=== PATIENT | female | born 1950 | race Caucasian/White ===

== ENCOUNTER 2020-08-23 06:19 | Outpatient (REF) | payer MEDICARE, SELFPAY ==
[2020-08-23 11:16] LABS: MANUAL DIFF FLAG NO
[2020-08-23 11:30] LABS: Basophils Absolute Auto 0.1 X10*3/uL (0.0-0.2); Basophils Percent Auto 0.8 % (0-2); Eosinophils Absolute Auto 0.2 X10*3/uL (0.0-0.4); Eosinophils Percent Auto 2.5 % (0-4); Hematocrit 42.5 % (37-47); Hemoglobin 13.6 g/dl (12.0-16.0); Imm Gran Abs Auto 0.02 X10*3/uL (0.00-0.03); Imm Gran Pct Auto 0.2 % (0.0-0.4); Lymphocytes Percent Auto 45.1 % (20-40); Mean Corpuscular Hemoglobin 29.7 pg (27.0-33.0); Mean Corpuscular Volume 92.8 fL (80-98); Mean Platelet Volume 9.5 fL (9.4-12.3); Monocytes Absolute Auto 0.7 X10*3/uL (0.1-1.2); Monocytes Percent Auto 8.1 % (2-11); Neutrophils Absolute Auto 3.8 X10*3/uL (2.0-8.3); Neutrophils Percent Auto 43.3 % (45-73); Platelet Count 364 X10*3/uL (160-400); Red Blood Count 4.58 X10*6/uL (4.20-5.50); Red Cell Distribution Width 13.7 % (11.0-16.0); White Blood Count 8.8 X10*3/uL (4.8-10.8)
[2020-08-23 12:05] LABS: Anion Gap 13 (12-20); Blood Urea Nitrogen 15 mg/dL (9-16); Calcium 9.4 mg/dL (8.4-10.2); Carbon Dioxide 29 mmol/L (22-29); Chloride 103 mmol/L (96-108); Cholesterol 250 mg/dL; Estimated Glomerular Filt Rate > 60; Glucose Fasting 108 mg/dL (60-99); HDL Cholesterol 56 mg/dL; LDL Cholesterol Calculated 170 mg/dl; Potassium 3.8 mmol/l (3.3-5.1); Sodium 141 mmol/L (135-145); Triglycerides 120 mg/dL
[2020-08-28 10:57] LABS: Vitamin D 25-OH, D2 <4 ng/mL; Vitamin D 25-OH, D3 35 ng/mL; Vitamin D 25-OH, Total 35 ng/mL (30-100)
== END 2020-08-23 06:20 | disposition home or self-care (01) ==
LOC: HO.HMGCLDS 06:19
PROVIDERS: PCP Internal Medicine; Visit Provider Internal Medicine
DX: E55.9 Vitamin D deficiency, unspecified (principal); I10 Essential (primary) hypertension; J44.9 Chronic obstructive pulmonary disease, unspecified
CPT/HCPCS: 36415; 80048; 80061; 82306; 85025

== ENCOUNTER 2021-04-18 10:50 | Outpatient (REF) | payer MEDICARE, SELFPAY ==
--- NOTE | ~2021-04-18 | MM_ITS ---
EXAMINATION: MM SCREENING DIGITAL BREAST TOMOSYNTHESIS, BILATERAL CLINICAL INFORMATION: Screening. Asymptomatic. The lifetime risk of breast cancer based on the Tyrer-Cuzick Model is 7.6%. COMPARISON: Mammography: Bilateral. TECHNIQUE: Digital breast tomosynthesis is performed in both the craniocaudal and mediolateral oblique views along with computer-aided detection (CAD). Synthesized 2D images are generated from the tomosynthesis. FINDINGS: The breasts are heterogeneously dense, which may obscure small masses (ACR BI-RADS breast composition Category c). On craniocaudal film of the right breast, there are noted to be 2 well-circumscribed densities, one of which lies approximately 2.5 cm from the nipple, measuring 5 mm in diameter. The second one has a bilobed appearance and lies just medial to the nipple measuring 5 mm in largest dimension. Ultrasound is recommended. On craniocaudal view of the left breast about the deep central aspect 7.5 cm from the nipple, there is a region of asymmetric density which was not fully imaged on prior studies and for which spot compression view and medial and lateral views of the left breast are recommended. MM/MM tomosynthesis screening BI IMPRESSION: Bilateral breast findings for further evaluation, as described. ASSESSMENT: BI-RADS 0: Incomplete - Need Additional Imaging Evaluation. RECOMMENDATION: 1. Additional views of the bilateral breasts. 2. Targeted ultrasound if warranted after review of the additional views. 3. Radiology department staff will contact the patient for additional imaging. This patient's information was entered into a reminder system with a target due date for their next mammogram.
== END 2021-04-18 10:51 | disposition home or self-care (01) ==
LOC: HO.MAMMO 10:50
PROVIDERS: PCP Internal Medicine; Visit Provider Internal Medicine
DX: Z12.31 Encounter for screening mammogram for malignant neoplasm of breast (principal)
CPT/HCPCS: 77063; 77067

== ENCOUNTER → 2021-04-30 14:50 | Outpatient (BNVA) | payer MEDICARE, SELFPAY | PROVIDERS: PCP Internal Medicine; Referring Provider Internal Medicine; Visit Provider Physician Assistant | DX: Z12.11 Encounter for screening for malignant neoplasm of colon (principal); K59.09 Other constipation; K64.9 Unspecified hemorrhoids | CPT/HCPCS: Q3014 ==

== ENCOUNTER 2021-06-28 10:00 | Day surgery (SDC) | payer MEDICARE, SELFPAY ==
[2021-06-24 12:57] VITALS: BMI 22.3
[2021-06-24 13:01] VITALS: BP 148/80; PULSE 100; RESP 16; O2SAT 96
--- NOTE | 2021-06-24 13:15 | P.CONAN_ITS ---
Documented by User: Debra Rojas NP 06/27/21 10:09 HPI - Anesthesia Eval Consult details Narrative: 70yo F for Colonoscopy PMFSH Active Problems Active Problems: All Active Problems (Updated 06/24/21 @ 13:13 by Sherry Sorenson) Vitamin D deficiency (Acute) Colon cancer screening (Acute) Breast screening (Acute) Psoriasis (Acute) Chronic constipation (Acute) Hemorrhoids (Acute) COPD (chronic obstructive pulmonary disease) (Acute) Hypertension, essential (Acute) Past Medical History Medical History Anxiety Arthritis Constipation COPD (chronic obstructive pulmonary disease) Heart burn Hypertension, essential Family History Family History Father Smoker Lung cancer Mother Alzheimer's disease History of breast cancer Thyroid disorder Family/Other No problems noted. Sister HTN (hypertension) Sister HTN (hypertension) Brother HTN (hypertension) History of heart attack Brother History of heart attack HTN (hypertension) Maternal Grandmother No problems noted. Maternal Grandfather No problems noted. Paternal Grandfather Unknown family medical history Paternal Grandmother Unknown family medical history Surgical History Surgical History H/O tooth extraction History of colonoscopy Social History Social History Are you a primary care process manager to a significant other at home: No Do you presently have visiting nurse or other home services: No Patient Tobacco Use Status: Former Tobacco user Quit Date: 11/2019 Are you DNR?: No Advance Directives: No Advance Directives Information Provided: No Advance Directives on File: No Narrative Narrative: No recent illness. Reports COPD at baseline No CP Activity limited d/t psoriasis on right foot. Now on otesla rx with improvement Meds Allergies Allergy/AdvReac Type Severity Reaction Status Date / Time codeine Allergy Intermediate redness/itc Verified 06/21/21 14:41 layo latex Allergy Intermediate Rash Verified 06/24/21 13:08 Home Medications Medication Instructions Recorded Confirmed Last Taken Type apremilast 30 mg tablet (Otezla) 30 mg PO BID 06/21/21 06/21/21 Unknown History Exam Exam Date and Time: June 24, 2021 1315 Height,Weight and Vital Signs: Height 5 ft 4 in Weight 58.967 kg Last Vital Signs Pulse 100 06/24/21 13:01 Resp 16 06/24/21 13:01 BP 148/80 H 06/24/21 13:01 Pulse Ox 96 06/24/21 13:01 Airway Mallampati Class: I TM Dist: >3cm Neck ROM: Full Partial: Lower Heart: RRR Lungs: CTAB Assessment and Plan Assessment Anesthesia Assessment: Anesthesia Plan Discussed and PAT Visit Documented by User: Rekha Hermosillo MD 06/28/21 10:53 [facility] Past Medical History Medical History Anxiety Arthritis Constipation COPD (chronic obstructive pulmonary disease) Heart burn Hypertension, essential Functional capacity: independent ambulation Patient : No Family History Family History Father Smoker Lung cancer Mother Alzheimer's disease History of breast cancer Thyroid disorder Family/Other No problems noted. Sister HTN (hypertension) Sister HTN (hypertension) Brother HTN (hypertension) History of heart attack Brother History of heart attack HTN (hypertension) Maternal Grandmother No problems noted. Maternal Grandfather No problems noted. Paternal Grandfather Unknown family medical history Paternal Grandmother Unknown family medical history Family history of problems with anesthesia: No Surgical History Surgical History H/O tooth extraction History of colonoscopy History of Problems with Anesthesia: No Social History Social History Are you a primary care process manager to a significant other at home: No Do you presently have visiting nurse or other home services: No Patient Tobacco Use Status: Former Tobacco user Quit Date: 11/2019 Are you DNR?: No Advance Directives: No Advance Directives Information Provided: No Advance Directives on File: No Meds Allergies Allergy/AdvReac Type Severity Reaction Status Date / Time codeine Allergy Intermediate redness/itc Verified 06/21/21 14:41 layo latex Allergy Intermediate Rash Verified 06/24/21 13:08 Home Medications Medication Instructions Recorded Confirmed Last Taken Type apremilast 30 mg tablet (Otezla) 30 mg PO BID 06/21/21 06/21/21 Unknown History Exam Airway Mallampati Class: II Assessment and Plan Final Anesthetic Review Family History of Problems with Anesthesia: No History of Problems with Anesthesia: No
[2021-06-28 10:54] VITALS: BP 178/86; PULSE 97; RESP 20; TEMP 36.7; O2SAT 94
--- NOTE | 2021-06-28 11:11 | HO.ANESPROP2 ---
[facility] Active Problems Active Problems: All Active Problems (Updated 06/24/21 @ 13:13 by Sherry Sorenson RN) Vitamin D deficiency (Acute) Colon cancer screening (Acute) Breast screening (Acute) Psoriasis (Acute) Chronic constipation (Acute) Hemorrhoids (Acute) COPD (chronic obstructive pulmonary disease) (Acute) Hypertension, essential (Acute) Past Medical History Medical History Anxiety Arthritis Constipation COPD (chronic obstructive pulmonary disease) Heart burn Hypertension, essential Family History Family History Father Smoker Lung cancer Mother Alzheimer's disease History of breast cancer Thyroid disorder Family/Other No problems noted. Sister HTN (hypertension) Sister HTN (hypertension) Brother HTN (hypertension) History of heart attack Brother History of heart attack HTN (hypertension) Maternal Grandmother No problems noted. Maternal Grandfather No problems noted. Paternal Grandfather Unknown family medical history Paternal Grandmother Unknown family medical history Family history of problems with anesthesia: No Surgical History Surgical History H/O tooth extraction History of colonoscopy History of Problems with Anesthesia: No Social History Social History Are you a primary patient care specialist to a significant other at home: No Do you presently have visiting nurse or other home services: No Patient Tobacco Use Status: Former Tobacco user Quit Date: 11/2019 Are you DNR?: No Advance Directives: No Advance Directives Information Provided: No Advance Directives on File: No Patient : No Meds Allergies Allergy/AdvReac Type Severity Reaction Status Date / Time codeine Allergy Intermediate redness/itc Verified 06/21/21 14:41 layo latex Allergy Intermediate Rash Verified 06/24/21 13:08 Active Medications: Current Medications Generic Name Dose Route Start Last Admin Trade Name Freq PRN Reason Stop Dose Admin Albuterol Sulfate 2.5 mg 06/28/21 10:41 Albuterol Sulfate (0.083%) 2.5 Mg/3 Ml Vial.Neb INHALE ONCE PRN Shortness of Breath/Wheezing Lactated Ringer's 1,000 mls @ 100 mls/hr 06/28/21 10:45 Lr IVCONT .Q10H [facility] Home Medications Medication Instructions Recorded Confirmed Last Taken Type apremilast 30 mg tablet (Otezla) 30 mg PO BID 06/21/21 06/21/21 Unknown History Exam Exam Date and Time: June 28, 2021 1111 Height,Weight and Vital Signs: Height 5 ft 4 in Weight 58.967 kg Last Vital Signs Temp 98.1 F 06/28/21 10:54 Pulse 97 06/28/21 10:54 Resp 20 06/28/21 10:54 BP 178/86 H 06/28/21 10:54 Pulse Ox 94 06/28/21 10:54 Airway Mallampati Class: II TM Dist: >3cm Neck ROM: Full Partial: Lower Loose/Missing/Broken Teeth: Yes and Lower Heart: RRR Lungs: CTA Assessment and Plan Assessment Anesthesia Assessment: Anesthesia Plan Discussed and Chart Reviewed Final Anesthetic Review Family History of Problems with Anesthesia: No History of Problems with Anesthesia: No NPO: Yes ASA Class: II and III Final Preanesthetic Review: Meds/Allgs Chart Reviewed, Consent Obtained/Reviewed and Anes Risks/Benef Reviewed Patient Risk: Low Procedure Risk: Low Anesthetic Plan Anesthetic Plan: MAC: Disposition: Standard PACU
[2021-06-28] MEDS: Lactated Ringers 1,000 ML 100 ML IVCONT (11:13)
--- NOTE | 2021-06-28 11:25 | MHC.SHP ---
Pre-Procedural Eval Section A Date of Service: 06/28/21 The patient is an INPATIENT: No The History & Physical has been completed within 30 days and I have reviewed it.: No Section B Chief Complaint: screening Details of Present Illness: Colon cancer screening Relevant Family History (Specify if Yes): No Relevant Social History: Tobacco Use (Former smoker) Present Medications: see Short Stay Collaborative assessment Medical History: Significant History (COPD (chronic obstructive pulmonary disease) Hypertension, essential) History of Previous Operations: Relevant previous surgery/procedure and date(s) (History of colonoscopy) Allergies: Allergies Allergy/AdvReac Type Severity Reaction Status Date / Time codeine Allergy Intermediate redness/itc Verified 06/21/21 14:41 layo latex Allergy Intermediate Rash Verified 06/24/21 13:08 Review of Systems Sugical H&P ROS: Negative: Constitution, Cardiovascular and Respiratory and Yes, Specify: Gastrointestinal (Chronic constipation, rectal bleeding) Exam Surgical H&P Exam: Normal: Heart, Normal: Lungs, Normal: Extremities and Normal: Abdomen Plan Diagnosis/Plan: Unchanged I have reviewed the history and physical and performed a pertinent physical examination on my patient. No changes have occurred unless specified.
--- NOTE | 2021-06-28 11:28 | PM.OP ---
Brief Operative Note Date of Service: 06/28/21 Pre-op diagnosis: Colon cancer screening, history of colon polyps Post-op diagnosis: other (Colon polyps, diverticulosis, hemorrhoids) Procedure: COLONOSCOPY TILL CECUM WITH BIOPSIES AND SNARE POLYPECTOMY Consent: Indications for the procedure and potential complications of bleeding, perforation, reaction to medications and missed diagnosis were discussed with the patient and informed consent was obtained. Instrument: Olympus PCF H 190 L variable stiffness pediatric colonoscope Monitoring: Vital signs and clinical assessment, intermittent blood pressure monitoring, continuous EKG monitoring, Pulse oximetry and Carbon Dioxide monitoring were done throughout the procedure. Colon withdrawl time was 25 minutes. Procedure: The patient was placed in the left lateral decubitis position and pre-procedure medications were administered. After a digital rectal examination of the ano-rectum, the video colonoscope was inserted into the rectum and advanced through the colon to the cecum. The colonoscope was slowly withdrawn in a retrograde panoramic fashion and the colon mucosa was carefully examined including a retroflexed view of the rectum. Findings and interventions are described below. Procedure Difficulty: Colon was long and tortuous and there was some loop formation. LLQ pressure was applied to intubate the transverse colon/cecum Findings: Terminal Ileum: Not evaluated Cecum: Normal Ascending Colon: Two 3-5 mm sessile polyps removed with the cold biopsy Transverse Colon: Normal Descending Colon: Moderate diverticulosis Sigmoid Colon: A 2 cms sessile polyp at 55 cms removed with a hot snare. A 2.5 cms pedunculated polyp at 22 cms - removed with a hot snare. Severe diverticulosis with luminal narrowing Rectum: Patchy erythema with aphthoid ulcers in the distal rectum from 0 to 2 cms - random biopsies were obtained to rule out proctitis Ano-rectum: Moderate internal hemorrhoids Colon preparation: Good after some irrigation Impression and Post Procedure Diagnosis: Colonoscopy Findings: Three large and two medium sized polyps removed Moderate to severe diverticulosis seen in the left colon Moderate hemorrhoids on retroflexed exam. Plan: Await pathology results Patient has an appointment on 07/09/21 in the GI Clinic with MAULIK Gonzalez. Repeat Colonoscopy interval based on path results - in 1-2 years if polyps are adenomatous and 10 years if polyps are hyperplastic. Above findings were reviewed with the patient and colon polyps and diverticulosis handouts were given in the discharge area Surgeon: Deanna Garcia MD Anesthesia: MAC (Dr Bach) Was an Railway Traction Line Worker used for this Procedure?: Yes Railway Traction Line Worker: Karly Dunbar Estimated blood loss (mL): 0 Pathology: other (A- ASCENDING COLON POLYPS B- SIGMOID COLON POLYP C- SIGMOID POLYP AT 22CMS D- RECTAL POLYP E- RECTAL BIOPSIES- R/O PROCTITIS) Condition: stable Disposition: PACU
[2021-06-28 12:10] VITALS: BP 110/62; PULSE 74; RESP 18; TEMP 36.3; O2SAT 100
[2021-06-28 12:25] VITALS: BP 129/69; PULSE 75; RESP 20; O2SAT 95
--- NOTE | 2021-06-28 17:35 | P.OP_ITS ---
Operative Note Operative Note Date of Service: 06/28/21 Narrative: Pre-op diagnosis:?Colon cancer screening, history of colon polyps Post-op diagnosis:?other (Colon polyps, diverticulosis, hemorrhoids) Procedure:? COLONOSCOPY TILL CECUM WITH BIOPSIES AND SNARE POLYPECTOMY Consent: Indications for the procedure and potential complications of bleeding, perforation, reaction to medications and missed diagnosis were discussed with the patient and informed consent was obtained. Instrument: Olympus PCF H 190 L variable stiffness pediatric colonoscope Monitoring: Vital signs and clinical assessment, intermittent blood pressure monitoring, continuous EKG monitoring, Pulse oximetry and Carbon Dioxide monitoring were done throughout the procedure. Colon withdrawl time was 25 minutes. Procedure: The patient was placed in the left lateral decubitis position and pre-procedure medications were administered. After a digital rectal examination of the ano-rectum, the video colonoscope was inserted into the rectum and advanced through the colon to the cecum. The colonoscope was slowly withdrawn in a retrograde panoramic fashion and the colon mucosa was carefully examined including a retroflexed view of the rectum. Findings and interventions are described below. Procedure Difficulty:? Colon was long and tortuous and there was some loop formation. LLQ pressure was applied to intubate the cecum Findings: Terminal Ileum: Not evaluated Cecum:? Normal Ascending Colon:? Two 3-5 mm sessile polyps removed with the cold biopsy Transverse Colon:? Normal Descending Colon:? Moderate diverticulosis Sigmoid Colon:? A 2 cms sessile polyp at 55 cms removed with a hot snare. A 2.5 cms pedunculated polyp at 22 cms - removed with a hot snare. Severe diverticulosis with luminal narrowing Rectum:? Patchy erythema with aphthoid ulcers in the distal rectum from 0 to 2 cms - random biopsies were obtained to rule out proctitis Ano-rectum:? Moderate internal hemorrhoids Colon preparation: Good after some irrigation Impression and Post Procedure Diagnosis: Colonoscopy Findings: Three large and two medium sized polyps removed Moderate to severe diverticulosis seen in the left colon Moderate hemorrhoids on retroflexed exam. Plan: Await pathology results Patient has an appointment on 07/09/21 in the GI Clinic with MAULIK Gonzalez. Repeat Colonoscopy interval based on path results - in 1-2 years if polyps are adenomatous and 10 years if polyps are hyperplastic - needs adult colonoscopy for future colonoscopies. Above findings were reviewed with the patient and colon polyps and diverticulosis handouts were given in the discharge area Surgeon:?Deanna Garcia MD Anesthesia:?MAC (Dr Espino) Was an Chief Psychology used for this Procedure?:?Yes Chief Psychology:?Karly Dunbar Estimated blood loss (mL):?0 Pathology:?other (A- ASCENDING COLON POLYPS? B- SIGMOID COLON POLYP? C- SIGMOID POLYP AT 22CMS? D- RECTAL POLYP? E- RECTAL BIOPSIES- R/O PROCTITIS) Condition:?stable Disposition:?PACU
== END 2021-06-28 13:25 | disposition home or self-care (01) ==
PROVIDERS: PCP Internal Medicine; Visit Provider Internal Medicine Gastroenterology
PROC: 0DJD8ZZ Inspection of Lower Intestinal Tract, Via Natural or Artificial Opening Endoscopic (ICD-10-PCS; CPT 45378; principal; 2021-06-28 11:20)
DX: Z12.11 Encounter for screening for malignant neoplasm of colon (principal); Z86.010 Personal history of colon polyps; D12.5 Benign neoplasm of sigmoid colon; D12.8 Benign neoplasm of rectum; K63.5 Polyp of colon; K57.30 Diverticulosis of large intestine without perforation or abscess without bleeding; K64.8 Other hemorrhoids; I10 Essential (primary) hypertension; J44.9 Chronic obstructive pulmonary disease, unspecified; Z79.899 Other long term (current) drug therapy; Z88.8 Allergy status to other drugs, medicaments and biological substances; Z87.891 Personal history of nicotine dependence; Z91.040 Latex allergy status
CPT/HCPCS: 45385; 45380; 88305

== ENCOUNTER 2022-01-29 12:30 | Outpatient (REF) | payer MEDICARE, SELFPAY ==
[2022-01-29 13:43] LABS: MANUAL DIFF FLAG NO
[2022-01-29 13:49] LABS: Basophils Absolute Auto 0.1 X10*3/uL (0.0-0.2); Basophils Percent Auto 0.7 % (0-2); Eosinophils Absolute Auto 0.1 X10*3/uL (0.0-0.4); Eosinophils Percent Auto 1.8 % (0-4); Hematocrit 41.4 % (37.0-47.0); Hemoglobin 13.6 g/dl (12.0-16.0); Imm Gran Abs Auto 0.02 X10*3/uL (0.00-0.03); Imm Gran Pct Auto 0.3 % (0.0-0.4); Lymphocytes Absolute Auto 2.6 X10*3/uL (1.2-4.9); Lymphocytes Percent Auto 35.9 % (20-40); Mean Corpuscular HGB Conc 32.9 g/dl (31.0-35.0); Mean Corpuscular Volume 91.4 fL (80.0-98.0); Mean Platelet Volume 9.4 fL (9.4-12.3); Monocytes Absolute Auto 0.5 X10*3/uL (0.1-1.2); Monocytes Percent Auto 6.6 % (2-11); Neutrophils Absolute Auto 3.9 x10*3/uL (2.0-8.3); Neutrophils Percent Auto 54.7 % (45-73); Platelet Count 339 X10*3/uL (160-400); Red Blood Count 4.53 X10*6/uL (4.20-5.50); Red Cell Distribution Width 13.4 % (11.0-16.0); White Blood Count 7.2 X10*3/uL (4.8-10.8)
[2022-01-29 14:10] LABS: Alanine Aminotransferase 13 U/L (0-31); Albumin Level 4.5 g/dL (3.5-5.0); Alkaline Phosphatase 104 U/L (39-117); Anion Gap 14 (12-20); Aspartate Amino Transferase 17 U/L (5-31); Bilirubin Total 0.5 mg/dL (0.0-1.0); Blood Urea Nitrogen 13 mg/dL (9-16); Calcium 10.3 mg/dL (8.4-10.2); Carbon Dioxide 28 mmol/L (22-29); Chloride 104 mmol/L (96-108); Estimated Glomerular Filt Rate > 60; Glucose Random 99 mg/dL (60-115); Potassium 4.2 mmol/L (3.3-5.1); Sodium 142 mmol/L (135-145); Total Protein 8.1 g/dL (6.5-8.0)
[2022-01-29 14:35] LABS: TSH reflex Free T4 1.59 uIU/mL (0.32-4.0)
== END 2022-01-29 12:31 | disposition home or self-care (01) ==
LOC: HO.HMGCLDS 12:30
PROVIDERS: PCP Internal Medicine; Visit Provider Internal Medicine
DX: I10 Essential (primary) hypertension (principal)
CPT/HCPCS: 36415; 80053; 84443; 85025

== ENCOUNTER 2022-04-17 14:43 | Outpatient (REF) | payer MEDICARE, SELFPAY ==
--- NOTE | 2022-04-17 17:01 | PFT_ITS ---
INDICATION: Shortness of breath. SPIROMETRY: The FEV1 to FVC 31% with an FEV1 of 0.78 L, which is 35% predicted. An FVC of 2.51 L, which is 86% predicted. There was a significant response to bronchodilators noted. Maximum voluntary ventilation 30% predicted. LUNG VOLUMES: Total lung capacity 120% predicted with a residual volume 175% predicted. DIFFUSION CAPACITY: DLCO 34% predicted. COMPARISONS: PFTs from 2013. INTERPRETATION: There is an obstructive ventilatory defect consistent with very severe COPD. The patient did have a significant response to bronchodilators noted. There is a severe decrease in the maximum voluntary ventilation secondary to deconditioning and also worsening dynamic inspiratory capacity. Lung volumes with a trend hyperinflation and significant air trapping, and the patient does have a severe diffusion impairment. When compared to 2013, there is a trend increase in the FVC, a significant decrease in the FEV1, a trend increase in the total lung capacity, and a significant decrease in diffusion capacity. Clinical correlation warranted. The patient should have a 6-minute walk test. MD MICHAEL Chavis/LUPE / [phone]
== END 2022-04-17 14:44 | disposition home or self-care (01) ==
LOC: HO.RESP 14:43
PROVIDERS: PCP Internal Medicine; Visit Provider Internal Medicine
DX: J44.9 Chronic obstructive pulmonary disease, unspecified (principal)
CPT/HCPCS: 94060; 94727; 94729

== ENCOUNTER 2022-07-03 14:19 | Outpatient (REF) | payer MEDICARE, SELFPAY ==
--- NOTE | ~2022-07-03 | XR_ITS ---
EXAMINATION: XR CHEST CLINICAL INFORMATION: Post Covid infection COMPARISON: Previous chest x-ray from 2016 TECHNIQUE: 2 views of the chest were obtained. FINDINGS: The cardiac and mediastinal contours are stable. The lungs are well inflated. The lungs are clear. There is no pleural effusion or pneumothorax. Bony structures are unremarkable. XR/XR chest 2V IMPRESSION: Well-inflated lungs. No evidence for acute disease in the chest.
== END 2022-07-03 14:20 | disposition home or self-care (01) ==
LOC: HO.XRAY 14:19
PROVIDERS: PCP Internal Medicine; Visit Provider Internal Medicine
DX: J44.9 Chronic obstructive pulmonary disease, unspecified (principal); R09.02 Hypoxemia; Z79.899 Other long term (current) drug therapy; Z87.891 Personal history of nicotine dependence
CPT/HCPCS: 71046; 94618; 99202

== ENCOUNTER → 2022-09-04 14:20 | Outpatient (BNVA) | payer MEDICARE, SELFPAY | PROVIDERS: PCP Internal Medicine; Visit Provider Internal Medicine | DX: J44.9 Chronic obstructive pulmonary disease, unspecified (principal); R09.02 Hypoxemia; Z87.891 Personal history of nicotine dependence | CPT/HCPCS: 99212 ==

== ENCOUNTER 2023-02-07 12:16 | Outpatient (REF) | payer MEDICARE, SELFPAY ==
[2023-02-07 13:44] LABS: Alanine Aminotransferase 14 U/L (0-31); Albumin Level 4.1 g/dL (3.5-5.0); Alkaline Phosphatase 84 U/L (39-117); Anion Gap 11 (12-20); Aspartate Amino Transferase 17 U/L (5-31); Bilirubin Total 0.6 mg/dL (0.0-1.0); Blood Urea Nitrogen 18 mg/dL (9-16); Calcium 9.5 mg/dL (8.4-10.2); Carbon Dioxide 29 mmol/L (22-29); Chloride 105 mmol/L (96-108); Estimated Glomerular Filt Rate 56; Glucose Random 99 mg/dL (60-115); Potassium 4.4 mmol/L (3.3-5.1); Sodium 141 mmol/L (135-145); Total Protein 7.1 g/dL (6.5-8.0)
[2023-02-08 15:44] LABS: LDL Cholesterol Direct 185 mg/dL (<100)
== END 2023-02-07 12:17 | disposition home or self-care (01) ==
LOC: HO.HMGCLDS 12:16
PROVIDERS: PCP Internal Medicine; Visit Provider Internal Medicine
DX: I10 Essential (primary) hypertension (principal); K59.09 Other constipation
CPT/HCPCS: 36415; 80053; 83721

== ENCOUNTER → 2023-02-09 14:50 | Outpatient (BNVA) | payer MEDICARE, SELFPAY | PROVIDERS: PCP Internal Medicine; Visit Provider Internal Medicine | DX: J44.9 Chronic obstructive pulmonary disease, unspecified (principal); U09.9 Post COVID-19 condition, unspecified; R09.02 Hypoxemia; Z87.891 Personal history of nicotine dependence | CPT/HCPCS: 99212 ==

== ENCOUNTER 2023-03-04 | Outpatient (REF) | payer MEDICARE, SELFPAY | END 2023-03-04 00:01 | disposition home or self-care (01) | LOC: HO.LNP | PROVIDERS: Visit Provider Internal Medicine | DX: R31.9 Hematuria, unspecified (principal) | CPT/HCPCS: 87086 ==

== ENCOUNTER 2023-03-07 10:16 | Outpatient (REF) | payer MEDICARE, SELFPAY ==
[2023-03-07 14:05] LABS: FIT1 POSITIVE (NEGATIVE)
[2023-03-07 14:06] LABS: FIT2 POSITIVE (NEGATIVE)
[2023-03-07 14:07] LABS: FIT Int Ctl YES
== END 2023-03-07 10:17 | disposition home or self-care (01) ==
LOC: HO.HMGCLNP 10:16
PROVIDERS: Nurse Practitioner Acute Care; PCP Internal Medicine; Visit Provider Internal Medicine
DX: K92.1 Melena (principal)
CPT/HCPCS: 82274

== ENCOUNTER → 2023-04-09 14:46 | Outpatient (BNVA) | payer MEDICARE, SELFPAY | PROVIDERS: PCP Internal Medicine; Visit Provider Internal Medicine | DX: J44.9 Chronic obstructive pulmonary disease, unspecified (principal); R09.02 Hypoxemia; Z87.891 Personal history of nicotine dependence | CPT/HCPCS: 99212 ==

== ENCOUNTER 2023-06-03 15:39 | Outpatient (AMB) | payer MEDICARE, SELFPAY ==
[2023-06-03 15:41] VITALS: BP 132/64; PULSE 109; O2SAT 96; BMI 21.3
--- NOTE | 2023-06-03 15:41 | A.OFFPC_ITS ---
Vital Signs 06/03/23 15:41 Height 5 ft 4 in Weight 124 lb 3 oz BMI 21.3 BP 132/64 Blood Pressure Location Rt brachial Position Sitting Pulse 109 H Pulse Source Pulse Oximeter Pulse Oximetry (%) 96 Oxygen Delivery Method Room Air Intake Visit Reasons: 3 month follow up Allergies codeine Allergy (Intermediate, Verified 06/03/23 15:44) redness/itching latex Allergy (Intermediate, Verified 06/03/23 15:44) Rash Medication List - Last Reconciled 06/03/23 by Drake Leos MD ammonium lactate 12% appl topical budesonide-formoterol 160-4.5 mcg/actuation (Symbicort) 2 puffs inhalation BID diltiazem HCl ER (Matzim LA) 180 mg PO DAILY ipratropium-albuterol 20-100 mcg/actuation (Combivent Respimat) 1 puff inhalation Q6H PRN losartan 25 mg PO DAILY 30 days magnesium 200 mg PO DAILY Tobacco use date assessed: 06/03/23 Fall risk assessment: No Falls in past year Last assessed Fall Risk: 06/03/23 Dental Screening Dental Screen Date: 06/03/23 Did you have a dental visit in the last 12 months?: No Did you have a dental problem in the last 6 months where you did not have access to dental care?: No Was dental information given to patient?: No HPI 3 month follow up HPI Details Patient is 72-year-old female who continued to have slight rectal bleeding her FITS test was positive, she had appointment with the gastroenterology, patient tells me that an hour before her appointment it was canceled I have sent a message to Gastroenterology office patient need to be soon as soon as possible Blood pressure is stable patient is on diltiazem 180 mg and losartan 25 mg tolerating medication. Patient sees Dr. Watson home office claim specialist for severe COPD and is taking 2 maintenance inhalers. Her breathing is at baseline Patient will return early October for follow-up Labs needs to be done before visit [facility] Medical History Anxiety Arthritis Constipation COPD (chronic obstructive pulmonary disease) Exercise hypoxemia Has been smoking tobacco for 1 year Heart burn Hypertension, essential Surgical History H/O tooth extraction History of colonoscopy Family History Father Smoker Lung cancer Mother Alzheimer's disease History of breast cancer Thyroid disorder Family/Other No problems noted. Sister HTN (hypertension) Sister HTN (hypertension) Brother HTN (hypertension) History of heart attack Brother History of heart attack HTN (hypertension) Maternal Grandmother No problems noted. Maternal Grandfather No problems noted. Paternal Grandfather Unknown family medical history Paternal Grandmother Unknown family medical history Social [facility] Are you a primary care management specialist to a significant other at home: No Do you presently have visiting nurse or other home services: No Alcohol intake: former Patient Tobacco Use Status: Former Tobacco user Quit Date: 11/2019 e-Cigarette/Vaping Use: Never Used Current occupational status: retired Cognitive needs: No Hearing needs: No Vision needs: No Questionnaire Thrive Questionnaire Date Thrive assessed: 01/29/22 AUDIT C Alcohol Use Questionnaire (AUDIT-C) 1. How often do you have a drink containing alcohol?: Never 3. How often do you have six or more drinks on one occasion?: Never Total Score: 0 Score Reviewed/Action Taken: Yes YANIQUE-7 AMB Questionnaire YANIQUE-7 Date YANIQUE - 7 assessed: 01/29/22 Source: Developed by Drs. Maximilian Tang, Radha Mendoza, Fernandez No and colleagues, with an educational rachel from [email or web address]. Review of Systems Const Denies chills and Denies fever(s) ENT Denies epistaxis and Denies nasal discharge Card Denies chest pain Resp Denies chest congestion, Denies cough and Denies hemoptysis GI Denies nausea Skin/Breast Denies rash Neuro Reports no additional complaints Psych Reports no additional complaints Endo Reports no additional complaints Physical exam (Primary Care) Vital Signs: Last Vital Signs Pulse 109 H 06/03/23 15:41 BP 132/64 06/03/23 15:41 Pulse Ox 96 06/03/23 15:41 Oxygen Delivery Method Room Air 06/03/23 15:41 BMI result Body Mass Index 21.3 Tobacco/Smoking Status: Tobacco use Status Tobacco use date assessed 06/03/23 06/03/23 15:46 Patient Tobacco Use Status Former Tobacco user 06/03/23 15:46 e-Cigarette/Vaping Use Never Used 06/03/23 15:46 Thrive Assessment: Date of Thrive Assessment Date Thrive assessed 01/29/22 06/03/23 15:46 Const General: cooperative, comfortable and no acute distress Orientation/consciousness: patient oriented x3 HENMT Head: Yes normocephalic Eyes General: appearance normal, both eyes and all related structures Neck Neck: Yes supple Resp Effort & Inspection: normal respiratory effort, no cough and no stridor Cardio Rhythm: regular rhythm Heart sounds: S1 normal heart sound present and S2 normal heart sound present Skin General skin exam: turgor normal Neuro General: patient oriented x3, tone normal and moves all extremities Extrem Right lower extremity: no edema Left lower extremity: no edema Assessment and Plan Assessment & Plan (1) Bloody stools: Code(s): K92.1 - Melena (2) Hypertension, essential: Code(s): I10 - Essential (primary) hypertension Plan Patient is 72-year-old female who continued to have slight rectal bleeding her FITS test was positive, she had appointment with the gastroenterology, patient tells me that an hour before her appointment it was canceled I have sent a message to Gastroenterology office patient need to be soon as soon as possible Blood pressure is stable patient is on diltiazem 180 mg and losartan 25 mg tolerating medication. Patient sees Dr. Watson home office claim specialist for severe COPD and is taking 2 maintenance inhalers. Her breathing is at baseline Patient will return early October for follow-up Labs needs to be done before visit Orders: Orders Comprehensive Met. Panel Today I10 - Essential (primary) hypertension, K92.1 - Melena Complete Blood Count Auto Diff Today I10 - Essential (primary) hypertension, K92.1 - Melena Referrals Gastroenterology Referral K92.1 - Melena Coding Level of Care Code Est Pt Level 3 (73675) Diagnoses Bloody stools K92.1 Hypertension, essential I10
== END 2023-06-03 16:13 | disposition home or self-care (01) ==
PROVIDERS: Visit Provider Internal Medicine
DX: K92.1 Melena (principal); I10 Essential (primary) hypertension
CPT/HCPCS: 99213

== ENCOUNTER 2023-06-10 13:13 | Outpatient (AMB) | payer MEDICARE, SELFPAY ==
--- NOTE | 2023-06-10 13:21 | A.OFFVIS_ITS ---
Intake Vital Signs 06/10/23 13:27 Height 5 ft 4 in Weight 128 lb BMI 22.0 BP 145/70 H Blood Pressure Location Lt brachial Position Sitting Pulse 94 Intake Visit Reasons: rectal bleeding Intake Note: Patient follow up for rectal bleeding. Patient cc: constipation with rectal bleeding and denies any other GI issues. 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 Accompanied by: Spouse Allergies codeine Allergy (Intermediate, Verified 06/10/23 13:20) redness/itching latex Allergy (Intermediate, Verified 06/10/23 13:20) Rash Medication List - Last Reconciled 06/10/23 by Yaquelin John PA-C budesonide-formoterol 160-4.5 mcg/actuation (Symbicort) 2 puffs inhalation BID diltiazem HCl ER (Matzim LA) 180 mg PO DAILY ipratropium-albuterol 20-100 mcg/actuation (Combivent Respimat) 1 puff inhalation Q6H PRN losartan 25 mg PO DAILY 30 days magnesium 200 mg PO DAILY HPI HPI Comments History of Present Illness Details A 72 y/o female hx polyps, due for colonoscopy. Typically constipated, she does have internal hemorrhoids that tend to flare from time to time. Her appetite is good. 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 Sister HTN (hypertension) Sister HTN (hypertension) Brother HTN (hypertension) History of heart attack Brother History of heart attack HTN (hypertension) Maternal Grandmother No problems noted. Maternal Grandfather No problems noted. Paternal Grandfather Unknown family medical history Paternal Grandmother Unknown family medical history Social History Housing: Condominium Are you a primary acute care registered nurse to a significant other at home: No Do you presently have visiting nurse or other home services: No Alcohol intake: former Patient Tobacco Use Status: Former Tobacco user Quit Date: 11/2019 e-Cigarette/Vaping Use: Never Used Current occupational status: retired Cognitive needs: No Hearing needs: No Vision needs: No Review of Systems Const All systems reviewed & are unremarkable except as noted in HPI and below Card Denies chest pain and Denies dyspnea Resp Denies dyspnea GI Denies abdominal pain and Reports hematochezia (rectal bleed- intermit) Reports abnormal vaginal bleeding Physical Exam Vital Signs: Last Vital Signs Pulse 94 06/10/23 13:27 BP 145/70 H 06/10/23 13:27 BMI result Body Mass Index 22.0 Const General: comfortable and no acute distress Orientation/consciousness: patient oriented x3 Limitations: no limitations Resp Effort & Inspection: normal respiratory effort and able to speak in complete sen tences Auscultation: no rales, no rhonchi, no wheezes and diminished lung sounds Cardio Rate: regular rate Rhythm: regular rhythm Heart sounds: S1 normal heart sound present and S2 normal heart sound present GI Palpation (GI): Soft to palpation and nontender Auscultation: normal bowel sounds Skin General skin exam: no rashes or lesions noted Neuro General: patient oriented x3 Extrem General: Yes full ROM Psych Appearance: grossly normal Mental Status: mental status grossly normal Speech and movement: Normal speech and movement present Attitude: cooperative Thought content: Normal thought content present Results Reviewed Results Reviewed: Findings: Terminal Ileum: Not evaluated Cecum:? Normal Ascending Colon:? Two 3-5 mm sessile polyps removed with the cold biopsy Transverse Colon:? Normal Descending Colon:? Moderate diverticulosis Sigmoid Colon:? A 2 cms sessile polyp at 55 cms removed with a hot snare. A 2.5 cms pedunculated polyp at 22 cms - removed with a hot snare. Severe diverticulosis with luminal narrowing Rectum:? Patchy erythema with aphthoid ulcers in the distal rectum from 0 to 2 cms - random biopsies were obtained to rule out proctitis Ano-rectum:? Moderate internal hemorrhoids Colon preparation: Good after some irrigation Impression and Post Procedure Diagnosis: Colonoscopy Findings: Three large and two medium sized polyps removed Moderate to severe diverticulosis seen in the left colon Moderate hemorrhoids on retroflexed exam. Plan: Await pathology results Patient has an appointment on 07/09/21 in the GI Clinic with MAULIK Gonzalez. Repeat Colonoscopy interval based on path results - in 1-2 years if polyps are adenomatous and 10 years if polyps are hyperplastic - needs adult colonoscopy for future colonoscopies. Above findings were reviewed with the patient and colon polyps and diverticu losis handouts were given in the discharge area Surgeon:?Deanna Garcia MD Anesthesia:?MAC (Dr Espino) Was an Obiee Report Developer used for this Procedure?:?Yes Name:?QuynhMj Ross Age/Sex: 70/F Attending: Deanna Garcia MD : 1950 Submitted by: Deanna Garcia MD Copies to: Drake Leos MD MR #: [id number] ? Status: [facility] Collected: 06/28/21 Location: [facility] Received: 06/28/21 Diagnosis A.? Colon, ascending, polypectomy x 2:? Clinically polypoid colonic mucosa noted; negative for a hyperplastic or neoplastic process. B.? Colon, sigmoid, polypectomy:? Tubular adenoma; negative for high-grade dysplasia. C.? Colon, sigmoid polyp at 22 cm, polypectomy:? Hyperplastic polyp. D.? Rectum, polypectomy:? Tubular adenoma; negative for high-grade dysplasia. E.? Rectum, biopsy:? Mildly active colitis/proctitis, patchy (see comment). COMMENT (E):? Neither evidence of chronic mucosal injury nor granulomas are identified.? The overall histologic findings are non-specific.? Clinical correlation is advised. Assessment & Plan Assessment & Plan (1) Hemorrhoids: Comment: Avoid straining, high-fiber diet, surgical referral if needed declines again Code(s): K64.9 - Unspecified hemorrhoids (2) Tubular adenoma of colon: Code(s): D12.6 - Benign neoplasm of colon, unspecified Plan: Polyp surveillance colonoscopy- (3) Diverticulosis of colon: Comment: Diverticulosis/diverticulitis ER protocol reviewed Code(s): K57.30 - Diverticulosis of large intestine without perforation or abscess without bleeding Plan: ER protocol Maintain high-fiber diet (4) Rectal bleeding: Comment: Known hemorrhoids, constipation strain Code(s): K62.5 - Hemorrhage of anus and rectum Plan: Maintain high-fiber diet Declines surgical consult (5) Vaginal bleeding: Comment: No associate director career services care greater than 10-15 years Code(s): N93.9 - Abnormal uterine and vaginal bleeding, unspecified Plan: Referral to LEARNING SOLUTIONS SPECIALIST-sent Plan Polyp surveillance -Colonoscopy- anesthesia consult- severe COPD Orders: Orders Colonoscopy - GI Use Only 06/10/23 D12.6 - Benign neoplasm of colon, unspecified, K57.30 - Diverticulosis of large intestine without perforation or abscess without bleeding, K64.9 - Unspecified hemorrhoids Complete Blood Count Auto Diff 06/10/23 K62.5 - Hemorrhage of anus and rectum Referrals PRODUCTION PLANNER SCHEDULER Referral N93.9 - Abnormal uterine and vaginal bleeding, unspecified Medications: New bisacodyl (Dulcolax (bisacodyl)) Take 4 tablets by mouth at 12:00pm the day before your procedure. 20 mg (4 x 5 mg) PO ONCE 1 day 4 tabs 0RF colonoscopy prep Z12.11 - Encounter for screening for malignant neoplasm of colon polyethylene glycol 3350 (Miralax) Take as directed by mouth the day before your procedure. 238 grams PO ONCE 1 day 238 grams 0RF methylcellulose (laxative) (Citrucel) 500 mg PO TID 30 days 90 tabs 5RF Patient Instructions: 72-year-old female personal history of adenomatous colon polyps- Polyp surveillance colonoscopy-anesthesia consult COPD pack-a-day smoker Maintain high-fiber diet hemorrhoids and diverticulosis Diverticulosis/diverticulitis year protocol review Encouraged associate director career services follow-up referral sent Coding Level of Care Code Est Pt Level 3 (67564) Diagnoses Hemorrhoids K64.9 Tubular adenoma of colon D12.6 Diverticulosis of colon K57.30 Rectal bleeding K62.5 Vaginal bleeding N93.9 Time Spent (min) 30
[2023-06-10 13:27] VITALS: BP 145/70; PULSE 94; BMI 22.0
== END 2023-06-10 16:14 | disposition home or self-care (01) ==
PROVIDERS: PCP Internal Medicine; Visit Provider Physician Assistant
DX: K64.9 Unspecified hemorrhoids (principal); D12.6 Benign neoplasm of colon, unspecified; K57.30 Diverticulosis of large intestine without perforation or abscess without bleeding; K62.5 Hemorrhage of anus and rectum; N93.9 Abnormal uterine and vaginal bleeding, unspecified
CPT/HCPCS: 99213

== ENCOUNTER → 2023-06-10 13:13 | Outpatient (BNVA) | payer MEDICARE, SELFPAY | PROVIDERS: PCP Internal Medicine; Visit Provider Physician Assistant | DX: K57.30 Diverticulosis of large intestine without perforation or abscess without bleeding (principal); K64.9 Unspecified hemorrhoids; K62.5 Hemorrhage of anus and rectum; D12.6 Benign neoplasm of colon, unspecified; N93.9 Abnormal uterine and vaginal bleeding, unspecified | CPT/HCPCS: 99212 ==

== ENCOUNTER 2023-08-03 11:40 | Outpatient (REF) | payer MEDICARE, SELFPAY ==
[2023-08-06 04:34] LABS: HPV mRNA E6/E7 rflx Not Detected (Not Detected)
== END 2023-08-03 11:41 | disposition home or self-care (01) ==
LOC: HO.LNP 11:40
PROVIDERS: PCP Internal Medicine; Visit Provider Obstetrics & Gynecology
DX: N95.0 Postmenopausal bleeding (principal)
CPT/HCPCS: 87624; 88142

== ENCOUNTER 2023-08-03 11:40 | Outpatient (AMB) | payer MEDICARE, SELFPAY ==
--- NOTE | 2023-08-03 11:57 | A.OFFVIS_ITS ---
Intake Vital Signs 08/03/23 11:58 Height 5 ft 4 in Weight 127 lb BMI 21.8 BP 140/70 H Intake Visit Reasons: New patient PMB Manager Wastewater Required: No Information Interpreted: non-clinical & clinical Wastewater Treatment Plant Supervisor: Wastewater Treatment Plant Supervisor Present (Akanksha URIBE) Accompanied by: Self / Same As Patient Allergies codeine Allergy (Intermediate, Verified 08/03/23 12:02) redness/itching latex Allergy (Intermediate, Verified 08/03/23 12:02) Rash Post menopausal: Yes HPI HPI Comments History of Present Illness Details Presenting for vaginal spotting started a month or 2 ago. Last co testing was more than 15 years ago no other associated symptoms PFSH Medical History Exercise hypoxemia Has been smoking tobacco for 1 year Anxiety Heart burn Arthritis Constipation COPD (chronic obstructive pulmonary disease) Hypertension, essential Surgical History H/O tooth extraction History of colonoscopy Family History Father Smoker Lung cancer Mother Alzheimer's disease History of breast cancer Thyroid disorder Family/Other No problems noted. Sister HTN (hypertension) Sister HTN (hypertension) Brother HTN (hypertension) History of heart attack Brother History of heart attack HTN (hypertension) Maternal Grandmother No problems noted. Maternal Grandfather No problems noted. Paternal Grandfather Unknown family medical history Paternal Grandmother Unknown family medical history Social History [facility] Are you a primary health care marketing specialist to a significant other at home: No Do you presently have visiting nurse or other home services: No Alcohol intake: former Patient Tobacco Use Status: Former Tobacco user Quit Date: 11/2019 e-Cigarette/Vaping Use: Never Used Current occupational status: retired Cognitive needs: No Hearing needs: No Vision needs: No Review of Systems Const All systems reviewed & are unremarkable except as noted in HPI and below Physical Exam Vital Signs: Last Vital Signs BP 140/70 H 08/03/23 11:58 BMI result Body Mass Index 21.8 General: Yes no CVA tenderness External Female Exam: normal external appearance and normal appearance of the urethra Speculum Exam - Vagina: normal appearance of the vagina, normal palpation, no lesions and no masses Speculum Exam - Cervix: normal appearance of the cervix, normal palpation, no lesions, no masses and nontender Bimanual exam- vagina & uterus: normal bimanual exam, normal palpation, uterine size normal, normal palpation, uterine shape normal, No Cervical tenderness present and non-tender Bimanual Exam- Adnexa, other: normal adnexae Back/Spine/Pelvis Back: no CVA tenderness Assessment & Plan Assessment & Plan (1) Postmenopausal bleeding: Code(s): N95.0 - Postmenopausal bleeding Plan: Discussed with the patient the differential diagnosis of post menopausal ble eding with normal pelvic exam including but not limited to, endometrial hyperplasia, cancer, polyps and other causes; co testing done, recommended ultrasound to measure the endometrial stripe; discussed with the patient that if the endometrial thickness is 4 mm or less the negative predictive value of endometrial pathology is 99%, otherwise If endometrial thickness is more than 4 mm will proceed with endometrial sampling versus hysteroscopy D&C polypectomy depending on the ultrasound findings. Instructed the patient to schedule an ultrasound follow-up appointment in 2 weeks. All questions answered, the patient verbalized understanding and agreed with the plan. Orders: Orders US pelvic and transvaginal Today N95.0 - Postmenopausal bleeding Coding Level of Care Code New Pt Level 3 (95487) Diagnoses Postmenopausal bleeding N95.0
[2023-08-03 11:58] VITALS: BP 140/70; BMI 21.8
== END 2023-08-03 12:22 | disposition home or self-care (01) ==
PROVIDERS: PCP Internal Medicine; Visit Provider Obstetrics & Gynecology
DX: N95.0 Postmenopausal bleeding (principal)
CPT/HCPCS: 99203

== ENCOUNTER 2023-08-11 14:41 | Outpatient (AMB) | payer MEDICARE, SELFPAY ==
--- NOTE | 2023-08-11 14:51 | MHC.OFFVIS ---
Intake Vital Signs 08/11/23 14:53 Height 5 ft 4 in Weight 130 lb BMI 22.3 BP 110/70 Blood Pressure Location Lt brachial Position Sitting Pulse 96 Pulse Source Pulse Oximeter Pulse Oximetry (%) 94 Oxygen Delivery Method Room Air Intake Visit Reasons: COPD Intake Note: pt is here for follow up and states she is at the same level and rests and breathing comes back. Dietary Aide Cook Required: No Allergies codeine Allergy (Intermediate, Verified 08/11/23 15:27) redness/itching latex Allergy (Intermediate, Verified 08/11/23 15:27) Rash Medication List - Last Reconciled 08/11/23 by Juhi Watson MD bisacodyl (Dulcolax (bisacodyl)) 20 mg (4 x 5 mg) PO ONCE 1 day budesonide-formoterol 160-4.5 mcg/actuation (Symbicort) 2 puffs inhalation BID diltiazem HCl ER (Matzim LA) 180 mg PO DAILY ipratropium-albuterol 20-100 mcg/actuation (Combivent Respimat) 1 puff inhalation Q6H PRN losartan 25 mg PO DAILY 30 days methylcellulose (laxative) (Citrucel) 500 mg PO TID 30 days polyethylene glycol 3350 (Miralax) 238 grams PO ONCE 1 day Do you need a note to return to daycare/school/sports/work: No HPI COPD HPI Details 72 years old very pleasant female, comes for follow-up after 6 months. She continues to use her inhalers regularly. The COPD has remained very stable without any worsening, Luckily she has had no chest infection, she is up to date with vaccines . She hardly needs to use the rescue inhaler. QUIT SMOKING IN 2019 . [facility] Medical History Exercise hypoxemia Has been smoking tobacco for 1 year Anxiety Heart burn Arthritis Constipation COPD (chronic obstructive pulmonary disease) Hypertension, essential Surgical History H/O tooth extraction History of colonoscopy Family History Father Smoker Lung cancer Mother Alzheimer's disease History of breast cancer Thyroid disorder Family/Other No problems noted. Sister HTN (hypertension) Sister HTN (hypertension) Brother HTN (hypertension) History of heart attack Brother History of heart attack HTN (hypertension) Maternal Grandmother No problems noted. Maternal Grandfather No problems noted. Paternal Grandfather Unknown family medical history Paternal Grandmother Unknown family medical history Social History [facility] Are you a primary coronary care unit nurse to a significant other at home: No Do you presently have visiting nurse or other home services: No Alcohol intake: former Patient Tobacco Use Status: Former Tobacco user Quit Date: 11/2019 e-Cigarette/Vaping Use: Never Used Current occupational status: retired Cognitive needs: No Hearing needs: No Vision needs: No Review of Systems Const All systems reviewed & are unremarkable except as noted in HPI and below Eyes Reports no additional complaints ENT Reports no additional complaints Card Denies chest pain, Denies irregular heart rhythm and Denies leg edema Resp Reports as per HPI GI Reports constipation Reports no additional complaints Musc Reports myalgias (Mild arthritis pain) Skin/Breast Reports other (psoriasis on the feet) Neuro Reports no additional complaints Psych Reports no additional complaints Endo Reports no additional complaints Physical Exam Vital Signs: Last Vital Signs Pulse 96 08/11/23 14:53 BP 110/70 08/11/23 14:53 Pulse Ox 94 08/11/23 14:53 Oxygen Delivery Method Room Air 08/11/23 14:53 BMI result Body Mass Index 22.3 Const General: healthy appearing, comfortable, no acute distress, alert and awake Orientation/consciousness: patient oriented x3 HEENT Head: Yes normal to inspection General nose exam: No nasal polyps present and No nasal discharge present Face and sinus: Yes sinuses nontender Mouth: oropharynx normal Throat: Yes posterior oropharynx normal Eyes General: appearance normal, both eyes and all related structures Neck Neck: Yes normal visual inspection, Yes no lymphadenopathy, Yes trachea midline and Yes no JVD Thyroid: Thyroid normal Chest Chest palpation & inspection: normal inspection of the chest, normal palpation of entire chest wall and no tenderness Resp Other: Percussion note is resonant, breath sounds equal on both sides moderately distant with prolonged expiratory phase. No wheezes rhonchi or crepitations are heard. Cardio Palpation: normal PMI Rate: regular rate Rhythm: regular rhythm Heart sounds: no gallops and no murmurs Peripheral pulses: Peripheral pulses 2+ throughout GI Palpation (GI): Soft to palpation, nontender, No hepatosplenomegaly present and no masses Auscultation: normal bowel sounds Back/Spine/Pelvis Thoracic/Lumbar Spine: thoracic and lumbar spine normal to inspection Skin General skin exam: no rashes or lesions noted Neuro General: patient oriented x3 and no focal motor deficits Cranial nerves: Yes CN's II-XII intact bilaterally Extrem General: Yes normal to inspection, Yes no clubbing, cyanosis or edema and Yes no calf tenderness Psych Appearance: grossly normal and well kempt Speech and movement: Normal speech and movement present Assessment & Plan Assessment & Plan (1) COPD, severe: Comment: Patient does have severe obstructive airway disorder. It remains very controlled. And stable on her current medical regimen [place] : Advised to continue using Symbicort 160-4.52 puffs b.i.d. and Combivent Respimat 1 inhalation Q 6 hours while awake Code(s): J44.9 - Chronic obstructive pulmonary disease, unspecified (2) Has been smoking tobacco for 1 year: Comment: HISTORY OF SMOKING 1 PACK A DAY FOR 50+ YEARS. LUCKILY SHE QUIT IN 2019. Code(s): F17.200 - Nicotine dependence, unspecified, uncomplicated Coding Level of Care Code Est Pt Level 3 (62300) Diagnoses COPD, severe J44.9 Has been smoking tobacco for 1 year F17.200
[2023-08-11 14:53] VITALS: BP 110/70; PULSE 96; O2SAT 94; BMI 22.3
== END 2023-08-11 15:30 | disposition home or self-care (01) ==
PROVIDERS: PCP Internal Medicine; Visit Provider Internal Medicine
DX: J44.9 Chronic obstructive pulmonary disease, unspecified (principal); F17.200 Nicotine dependence, unspecified, uncomplicated
CPT/HCPCS: 99213

== ENCOUNTER → 2023-08-11 14:41 | Outpatient (BNVA) | payer MEDICARE, SELFPAY | PROVIDERS: PCP Internal Medicine; Visit Provider Internal Medicine | DX: J44.9 Chronic obstructive pulmonary disease, unspecified (principal); Z87.891 Personal history of nicotine dependence | CPT/HCPCS: 99212 ==

== ENCOUNTER 2023-08-18 13:24 | Outpatient (REF) | payer MEDICARE, SELFPAY ==
--- NOTE | ~2023-08-18 | US_ITS ---
EXAMINATION: ULTRASOUND PELVIC, COMPLETE CLINICAL INFORMATION: Postmenopausal bleeding. COMPARISON: Pelvic ultrasound 04/20/2008. TECHNIQUE: Pelvic ultrasound was performed using transabdominal and transvaginal technique without spectral doppler. FINDINGS: Fibroid uterus measuring 7.5 x 3.0 x 4.5 cm. 2.8 cm right body fibroid. 1.7 cm anterior fundal fibroid. 2.7 cm fundal fibroid. The endometrial stripe measures 3 mm. There is fluid in the endometrial canal. The right ovary measures 2.3 x 1.1 x 1.2 cm, volume 1.6 mL. The left ovary is not seen. No free fluid. US/US pelvic and transvaginal IMPRESSION: Heterogeneous fibroid uterus. The endometrial stripe measures 3 mm. There is fluid in the endometrial canal.
== END 2023-08-18 13:25 | disposition home or self-care (01) ==
LOC: HO.US 13:24
PROVIDERS: Visit Provider Obstetrics & Gynecology
DX: N95.0 Postmenopausal bleeding (principal)
CPT/HCPCS: 76830; 76856

== ENCOUNTER 2023-09-18 10:45 | Day surgery (SDC) | payer MEDICARE, SELFPAY ==
[2023-09-16 15:25] VITALS: BMI 22.3
--- NOTE | 2023-09-17 12:20 | HO.ANESPROP2 ---
Documented by User: Debra Rojas NP 09/17/23 12:26 HPI - Anesthesia Eval Consult details Narrative: 72yo F for Colonoscopy [place] [facility] [place]. Very well controlled per 08/2023 office visit [facility] Active Problems Active Problems: All Active Problems (Updated 08/11/23 @ 15:32 by Juhi Watson MD) Postmenopausal bleeding (Acute) Vaginal bleeding (Acute) Rectal bleeding (Acute) Diverticulosis of colon (Acute) Tubular adenoma of colon (Acute) Bloody stools (Acute) Blood in urine (Acute) COPD, severe (Acute) Exercise hypoxemia (Acute) Has been smoking tobacco for 1 year (Acute) White coat syndrome with hypertension (Acute) Severe chronic obstructive pulmonary disease (Acute) Post-COVID syndrome (Acute) Uncontrolled hypertension (Acute) Vitamin D deficiency (Acute) Colon cancer screening (Acute) Breast screening (Acute) Psoriasis (Acute) Chronic constipation (Acute) Hemorrhoids (Acute) COPD (chronic obstructive pulmonary disease) (Acute) Hypertension, essential (Acute) Past Medical History Medical History Exercise hypoxemia Has been smoking tobacco for 1 year Anxiety Heart burn Arthritis Constipation COPD (chronic obstructive pulmonary disease) Hypertension, essential Family History Family History Father Smoker Lung cancer Mother Alzheimer's disease History of breast cancer Thyroid disorder Family/Other No problems noted. Sister HTN (hypertension) Sister HTN (hypertension) Brother HTN (hypertension) History of heart attack Brother History of heart attack HTN (hypertension) Maternal Grandmother No problems noted. Maternal Grandfather No problems noted. Paternal Grandfather Unknown family medical history Paternal Grandmother Unknown family medical history Family history of problems with anesthesia: No Surgical History Surgical History H/O tooth extraction History of colonoscopy History of Problems with Anesthesia: No Social History Social History Housing: Condominium Are you a primary patient care representative to a significant other at home: No Do you presently have visiting nurse or other home services: No Alcohol intake: former Patient Tobacco Use Status: Former Tobacco user Quit Date: 11/2019 e-Cigarette/Vaping Use: Never Used Use of substances other than those prescribed or required for medical reasons: No Are you DNR?: No Advance Directives: No Advance Directives Information Provided: Yes Current occupational status: retired Cognitive needs: No Hearing needs: No Vision needs: No Meds Allergies Allergy/AdvReac Type Severity Reaction Status Date / Time codeine Allergy Intermediate redness/itc Verified 08/11/23 15:27 layo latex Allergy Intermediate Rash Verified 08/11/23 15:27 Exam Exam Date and Time: September 17, 2023 1220 Height,Weight and Vital Signs: Height 5 ft 4 in Weight 58.967 kg Pertinent Lab Results Pertinent Lab Results: Laboratory Tests 02/07/23 12:21 Sodium 141 Potassium 4.4 Chloride 105 Carbon Dioxide 29 BUN 18 H Creatinine 0.98 Narrative Narrative: PFT 2021 INTERPRETATION: There is an obstructive ventilatory defect consistent with very severe COPD. The patient did have a significant response to bronchodilators noted. There is a severe decrease in the maximum voluntary ventilation secondary to deconditioning and also worsening dynamic inspiratory capacity. Lung volumes with a trend hyperinflation and significant air trapping, and the patient does have a severe diffusion impairment. When compared to 2012, there is a trend increase in the FVC, a significant decrease in the FEV1, a trend increase in the total lung capacity, and a significant decrease in diffusion capacity. Clinical correlation warranted. The patient should have a 6-minute walk test. Assessment and Plan Assessment Anesthesia Assessment: Chart Reviewed Final Anesthetic Review Family History of Problems with Anesthesia: No History of Problems with Anesthesia: No Documented by User: Slime Nunez MD 09/18/23 12:07 [facility] Past Medical History Medical History Exercise hypoxemia Has been smoking tobacco for 1 year Anxiety Heart burn Arthritis Constipation COPD (chronic obstructive pulmonary disease) Hypertension, essential Family History Family History Father Smoker Lung cancer Mother Alzheimer's disease History of breast cancer Thyroid disorder Family/Other No problems noted. Sister HTN (hypertension) Sister HTN (hypertension) Brother HTN (hypertension) History of heart attack Brother History of heart attack HTN (hypertension) Maternal Grandmother No problems noted. Maternal Grandfather No problems noted. Paternal Grandfather Unknown family medical history Paternal Grandmother Unknown family medical history Surgical History Surgical History H/O tooth extraction History of colonoscopy Social History [facility] Are you a primary patient care representative to a significant other at home: No Do you presently have visiting nurse or other home services: No Alcohol intake: former Patient Tobacco Use Status: Former Tobacco user Quit Date: 11/2019 e-Cigarette/Vaping Use: Never Used Use of substances other than those prescribed or required for medical reasons: No Are you DNR?: No Advance Directives: No Advance Directives Information Provided: Yes Current occupational status: retired Cognitive needs: No Hearing needs: No Vision needs: No Meds Allergies Allergy/AdvReac Type Severity Reaction Status Date / Time codeine Allergy Intermediate redness/itc Verified 08/11/23 15:27 layo latex Allergy Intermediate Rash Verified 08/11/23 15:27 Exam Airway Mallampati Class: II TM Dist: >3cm Neck ROM: Full Partial: Lower Heart: rrr Lungs: cta Assessment and Plan Assessment Anesthesia Assessment: Anesthesia Plan Discussed Final Anesthetic Review NPO: Yes ASA Class: III Final Preanesthetic Review: No Changes in Pt Med Stat, Meds/Allgs Chart Reviewed and Consent Obtained/Reviewed Patient Risk: Intermediate Procedure Risk: Intermediate Anesthetic Plan Anesthetic Plan: MAC: Disposition: Standard PACU
--- NOTE | 2023-09-18 11:05 | MHC.SHP ---
Pre-Procedural Eval Section A Date of Service: 09/18/23 The patient is an INPATIENT: No The History & Physical has been completed within 30 days and I have reviewed it.: No Section B Chief Complaint: Surveillance for colon polyps Relevant Family History (Specify if Yes): No Relevant Social History: Tobacco Use (former smoker) Present Medications: see Short Stay Collaborative assessment Medical History: Significant History (Arthritis Constipation COPD (chronic obstructive pulmonary disease) Exercise hypoxemia Has been smoking tobacco for 1 year Heart burn Hypertension, essential) History of Previous Operations: Relevant previous surgery/procedure and date(s) (History of colonoscopy, history of tooth extraction) Allergies: Allergies Allergy/AdvReac Type Severity Reaction Status Date / Time codeine Allergy Intermediate redness/itc Verified 08/11/23 15:27 layo latex Allergy Intermediate Rash Verified 08/11/23 15:27 Review of Systems Sugical H&P ROS: Negative: Constitution, Cardiovascular, Respiratory and Gastrointestinal Exam Surgical H&P Exam: Normal: Heart, Normal: Lungs and Normal: Extremities Plan Diagnosis/Plan: Unchanged I have reviewed the history and physical and performed a pertinent physical examination on my patient. No changes have occurred unless specified. Time Spent With Patient Time: Total time managing care of this patient today ____ minutes.
[2023-09-18 11:17] VITALS: RESP 16; TEMP 36.1
--- NOTE | 2023-09-18 11:37 | W.PM.OPN ---
Operative Note Operative Note Date of Service: 09/18/23 Narrative: COLONOSCOPY TILL CECUM WITH BIOPSIES, SNARE POLYPECTOMY AND SUBMUCOSAL INJECTION Pre-op diagnosis: Surveillance for colon polyps Post-op diagnosis:? Colon polyps, diverticulosis, hemorrhoids Endoscopist:? Deanna Garcia MD Anesthesia:?MAC Consent: Indications for the procedure and potential complications of bleeding, perforation, reaction to medications and missed diagnosis were discussed with the patient and informed consent was obtained. Instrument: Olympus PCF H 190 L variable stiffness pediatric colonoscope Monitoring: Vital signs and clinical assessment, intermittent blood pressure monitoring, continuous EKG monitoring, Pulse oximetry and Carbon Dioxide monitoring were done throughout the procedure. Please see anesthesia flowsheet. Colon withdrawl time was 25 minutes. Procedure: The patient was placed in the left lateral decubitis position and pre-procedure medications were administered. After a digital rectal examination of the ano-rectum, the video colonoscope was inserted into the rectum and advanced through the colon to the cecum. The colonoscope was slowly withdrawn in a retrograde panoramic fashion and the colon mucosa was carefully examined including a retroflexed view of the rectum. Findings and interventions are described below. Procedure Difficulty: Colon was long and tortuous and there was some loop formation. LLQ pressure was applied to intubate the ascending colon/cecum Findings: Terminal Ileum: Not evaluated Cecum: A 12-15 mm sessile polyp along the ICV with superficial ulcerations. Polyp was removed with a hot snare (placed in specimen jar marked polyp # 1) and polypectomy site was closed with 1 hemoclip A 2nd 10 mm polyp/nodule in the appendicular orifice. Polyp was raised with 3 cc of Eleview and unable to snare the polyp due to location. Polyp was removed piecemeal with a cold bx forceps and placed in specimen jar marked as polyp # 2 Ascending Colon: Normal Transverse Colon: Normal Descending: Moderate diverticulosis Sigmoid Colon: Patchy erythema with aphthoid ulcers in the distal sigmoid colon from 18 to 20 cms - random biopsies were obtained to rule out colitis Severe diverticulosis with luminal narrowing Rectum: Normal Ano-rectum: Moderate internal hemorrhoids Colon preparation: Good after some irrigation Impression and Post Procedure Diagnosis: Colonoscopy Findings: One medium sized polyp removed. A 2nd polyp was biopsied Patchy erythema with aphthoid ulcers in the distal sigmoid colon from 18 to 20 cms - random biopsies were obtained to rule out SCAD (segmental colitis associated with diverticulosis) Moderate to severe diverticulosis seen in the left colon Moderate hemorrhoids on retroflexed exam. Plan: Await pathology results Patient has an appointment on 10/15/23 in the GI Clinic with MAULIK Gonzalez. Repeat Colonoscopy interval based on path results - in 3-5 years if polyps are adenomatous and due to a history of adenomatous colon polyps. Above findings were reviewed with the patient and colon polyps and diverticulosis handouts were given in the discharge area Patient denies symptoms of diarrhea, and notes constipation.
[2023-09-18 12:23] VITALS: BP 102/50; PULSE 74; RESP 16; TEMP 36.1; O2SAT 96
[2023-09-18 12:35] VITALS: BP 121/49; PULSE 71; RESP 16; O2SAT 95
[2023-09-18 12:50] VITALS: BP 120/55; PULSE 71; RESP 16; O2SAT 94
[2023-09-18 13:00] VITALS: BP 121/50; PULSE 69; RESP 16; TEMP 36.5; O2SAT 96
== END 2023-09-18 14:05 | disposition home or self-care (01) ==
PROVIDERS: PCP Internal Medicine; Visit Provider Internal Medicine Gastroenterology
PROC: 0DJD8ZZ Inspection of Lower Intestinal Tract, Via Natural or Artificial Opening Endoscopic (ICD-10-PCS; CPT 45378; principal; 2023-09-18 12:40)
DX: Z12.11 Encounter for screening for malignant neoplasm of colon (principal); Z86.010 Personal history of colon polyps; D12.0 Benign neoplasm of cecum; K57.30 Diverticulosis of large intestine without perforation or abscess without bleeding; K52.9 Noninfective gastroenteritis and colitis, unspecified; Z79.899 Other long term (current) drug therapy; Z88.5 Allergy status to narcotic agent; Z91.040 Latex allergy status; Z87.891 Personal history of nicotine dependence
CPT/HCPCS: 45385; 45380; 45381; 88305; 88342; J2371; J2704

== ENCOUNTER → 2023-09-18 10:45 | Outpatient (BNV) | payer MEDICARE, SELFPAY | PROVIDERS: PCP Internal Medicine; Visit Provider Internal Medicine Gastroenterology | DX: Z12.11 Encounter for screening for malignant neoplasm of colon (principal); K57.30 Diverticulosis of large intestine without perforation or abscess without bleeding; K64.8 Other hemorrhoids; D12.0 Benign neoplasm of cecum; K63.3 Ulcer of intestine; D12.5 Benign neoplasm of sigmoid colon | CPT/HCPCS: 45380; 45381; 45385 ==

== ENCOUNTER 2023-10-15 10:06 | Outpatient (AMB) | payer MEDICARE, SELFPAY ==
--- NOTE | 2023-10-15 10:13 | MHC.OFFVIS ---
Intake Vital Signs 10/15/23 10:14 Height 5 ft 4 in Weight 130 lb 1.164 oz BMI 22.3 BP 125/65 Blood Pressure Location Lt brachial Position Sitting Pulse 63 Intake Visit Reasons: follow up Intake Note: jM presents in the office as a follow up. CC: She states that she is feeling fine today and not having any concerns. Human Resources Department Supervisor Required: No Allergies codeine Allergy (Intermediate, Verified 08/11/23 15:27) redness/itching latex Allergy (Intermediate, Verified 08/11/23 15:27) Rash HPI HPI Comments History of Present Illness Details A 72 y/o female hx polyps f/u after colonoscopy= her accompanies her, he is very pleasant She tolerated procedure well She has no GI or general complaints She has made changes in her diet to include more fiber which has been beneficial Reviewed procedure report, pathology and recommendation No nausea, vomiting, hematemesis, hematochezia fever or chills PFSH Medical History Exercise hypoxemia Has been smoking tobacco for 1 year Anxiety Heart burn Arthritis Constipation COPD (chronic obstructive pulmonary disease) Hypertension, essential Surgical History H/O tooth extraction History of colonoscopy Family History Father Smoker Lung cancer Mother Alzheimer's disease History of breast cancer Thyroid disorder Family/Other No problems noted. Sister HTN (hypertension) Sister HTN (hypertension) Brother HTN (hypertension) History of heart attack Brother History of heart attack HTN (hypertension) Maternal Grandmother No problems noted. Maternal Grandfather No problems noted. Paternal Grandfather Unknown family medical history Paternal Grandmother Unknown family medical history Social History Housing: Condominium Are you a primary acute care nurse practitioner to a significant other at home: No Do you presently have visiting nurse or other home services: No Alcohol intake: former Patient Tobacco Use Status: Former Tobacco user Quit Date: 11/2019 e-Cigarette/Vaping Use: Never Used Current occupational status: retired Cognitive needs: No Hearing needs: No Vision needs: No Review of Systems Const All systems reviewed & are unremarkable except as noted in HPI and below Card Denies chest pain and Denies dyspnea Resp Denies dyspnea Physical Exam Vital Signs: Last Vital Signs Pulse 63 10/15/23 10:14 BP 125/65 10/15/23 10:14 BMI result Body Mass Index 22.3 Const General: cooperative, healthy appearing, comfortable, no acute distress and well developed Orientation/consciousness: patient oriented x3 Limitations: no limitations Resp Effort & Inspection: normal respiratory effort and able to speak in complete sentences Neuro General: patient oriented x3 Extrem General: Yes full ROM Psych Appearance: grossly normal and well kempt Mental Status: mental status grossly normal Speech and movement: Normal speech and movement present and Clear speech present Affect: normal affect Attitude: cooperative Thought process: Normal thought process present Thought content: Normal thought content present Insight: Good insight present (Psych) Judgement: Good judgement present (Psych) Results Reviewed Results Reviewed: Findings: Terminal Ileum: Not evaluated Cecum: A 12-15 mm sessile polyp along the ICV with superficial ulcerations. Polyp was removed with a hot snare (placed in specimen jar marked polyp # 1) and polypectomy site was closed with 1 hemoclip A 2nd 10 mm polyp/nodule in the appendicular orifice. Polyp was raised with 3 cc of Eleview and unable to snare the polyp due to location. Polyp was removed piecemeal with a cold bx forceps and placed in specimen jar marked as polyp # 2 Ascending Colon: Normal Transverse Colon: Normal Descending: Moderate diverticulosis Sigmoid Colon: Patchy erythema with aphthoid ulcers in the distal sigmoid colon from 18 to 20 cms - random biopsies were obtained to rule out colitis Severe diverticulosis with luminal narrowing Rectum: Normal Ano-rectum: Moderate internal hemorrhoids Colon preparation: Good after some irrigation Impression and Post Procedure Diagnosis: Colonoscopy Findings: One medium sized polyp removed. A 2nd polyp was biopsied Patchy erythema with aphthoid ulcers in the distal sigmoid colon from 18 to 20 cms - random biopsies were obtained to rule out SCAD (segmental colitis associated with diverticulosis) Moderate to severe diverticulosis seen in the left colon Moderate hemorrhoids on retroflexed exam. Plan: Await pathology results Patient has an appointment on 10/15/23 in the GI Clinic with MAULIK Gonzalez. Repeat Colonoscopy interval based on path results - in 3-5 years if polyps are adenomatous and due to a history of adenomatous colon polyps. Above findings were reviewed with the patient and colon polyps and diverticulosis handouts were given in the discharge area Patient denies symptoms of diarrhea, and notes constipation. Addendum Addendum #1 (A): Smooth muscle actin shows muscularis mucosae disruption and focally thickening, but no invasive lesion. Additional tissue levels show no invasive lesion or high grade dysplasia. The slides are reviewed intradepartmentally. Electronically Signed By: Sherry Vegas 09/25/23 1111 Diagnosis A. Colon, cecal polyp #1: Tubular adenoma with inflammation and disruption (see comment). B. Colon, cecal polyp #2: Colonic mucosa with lymphoid aggregate and no specific change; no adenomatous dyspalsia seen. C. Colon, sigmoid, biopsy: Chronic colitis with mild activity; negative for dysplasia (see comment). Comment: (A): Additional tissue levels, smooth muscle immunostain, and review pending; report to follow. (C): These findings may be seen in chronic inflammatory bowel disease or diverticular disease- associated colitis and clinical correlation is necessary. Clinical History Colon polyps and diverticulosis. Microscopic Description Microscopic sections reviewed. Material Received A. Polyp cecum #1 B. Polyp cecum #2 C. Bx sigmoid colon (R/O colitis) Gross Description Patient: Mj Beauchamp Age/Sex: 72/F MR#: [id number] Page 1 of 2 Assessment & Plan Assessment & Plan (1) Tubular adenoma of colon: Code(s): D12.6 - Benign neoplasm of colon, unspecified Plan: Repeat asymptomatic colonoscopy 3 years (2) Diverticulosis of colon: Comment: Diverticulosis/diverticulitis ER protocol reviewed Code(s): K57.30 - Diverticulosis of large intestine without perforation or abscess without bleeding Plan: Maintain high-fiber diet (3) Hemorrhoids: Comment: Avoid straining, high-fiber diet, surgical referral if needed declines again Code(s): K64.9 - Unspecified hemorrhoids Plan: Maintain high-fiber diet Avoid straining Plan Recall colonoscopy 3 years Diverticulosis/diverticulitis year protocol Maintain high-fiber diet Avoid straining Medications: Refilled methylcellulose (laxative) (Citrucel) 500 mg PO TID 90 tabs 5RF 30 days Patient Instructions: Recall colonoscopy 3 years Diverticulosis/diverticulitis year protocol Foods to avoid Maintain high-fiber diet, discussed tries Avoid straining Encouraged to call questions or concerns Coding Level of Care Code Est Pt Level 3 (51589) Diagnoses Tubular adenoma of colon D12.6 Diverticulosis of colon K57.30 Hemorrhoids K64.9 Time Spent (min) 30
[2023-10-15 10:14] VITALS: BP 125/65; PULSE 63; BMI 22.3
== END 2023-10-15 13:11 | disposition home or self-care (01) ==
PROVIDERS: PCP Internal Medicine; Visit Provider Physician Assistant
DX: D12.6 Benign neoplasm of colon, unspecified (principal); K57.30 Diverticulosis of large intestine without perforation or abscess without bleeding; K64.9 Unspecified hemorrhoids
CPT/HCPCS: 99213

== ENCOUNTER → 2023-10-15 10:06 | Outpatient (BNVA) | payer MEDICARE, SELFPAY | PROVIDERS: PCP Internal Medicine; Visit Provider Physician Assistant | DX: N95.0 Postmenopausal bleeding (principal); D25.9 Leiomyoma of uterus, unspecified; D12.6 Benign neoplasm of colon, unspecified; K57.30 Diverticulosis of large intestine without perforation or abscess without bleeding; K64.9 Unspecified hemorrhoids | CPT/HCPCS: 99212 ==

== ENCOUNTER 2023-10-15 12:02 | Outpatient (AMB) | payer MEDICARE, SELFPAY ==
--- NOTE | 2023-10-15 12:08 | MHC.OFFVIS ---
Intake Vital Signs 10/15/23 12:09 Height 5 ft 4 in Weight 130 lb 1.164 oz BMI 22.3 BP 122/72 Intake Visit Reasons: US Follow up/DO NOT RS Allergies codeine Allergy (Intermediate, Verified 08/11/23 15:27) redness/itching latex Allergy (Intermediate, Verified 08/11/23 15:27) Rash HPI HPI Comments History of Present Illness Details Presenting for follow-up ultrasound for postmenopausal bleeding. The patient is still having continuous vaginal spotting. Ultrasound done on 08/18 showed the following Fibroid uterus measuring 7.5 x 3.0 x 4.5 cm. 2.8 cm right body fibroid. 1.7 cm anterior fundal fibroid. 2.7 cm fundal fibroid. The endometrial stripe measures 3 mm. There is fluid in the endometrial canal. The right ovary measures 2.3 x 1.1 x 1.2 cm, volume 1.6 mL. The left ovary is not seen. No free fluid. No only Previous pelvic ultrasound available was done in weight which showed 2 myomas 1 fundal measuring 3.7 cm on lower uterine segment 3.3 cm . Last co testing was done in 08/01 was negative PFSH Medical History Exercise hypoxemia Has been smoking tobacco for 1 year Anxiety Heart burn Arthritis Constipation COPD (chronic obstructive pulmonary disease) Hypertension, essential Surgical History H/O tooth extraction History of colonoscopy Family History Father Smoker Lung cancer Mother Alzheimer's disease History of breast cancer Thyroid disorder Family/Other No problems noted. Sister HTN (hypertension) Sister HTN (hypertension) Brother HTN (hypertension) History of heart attack Brother History of heart attack HTN (hypertension) Maternal Grandmother No problems noted. Maternal Grandfather No problems noted. Paternal Grandfather Unknown family medical history Paternal Grandmother Unknown family medical history Social History Housing: Condominium Are you a primary manager medicare marketing to a significant other at home: No Do you presently have visiting nurse or other home services: No Alcohol intake: former Patient Tobacco Use Status: Former Tobacco user Quit Date: 11/2019 e-Cigarette/Vaping Use: Never Used Current occupational status: retired Cognitive needs: No Hearing needs: No Vision needs: No Review of Systems Const All systems reviewed & are unremarkable except as noted in HPI and below Reports as per HPI and Reports no additional complaints GI Reports no additional complaints Reports no additional complaints Physical Exam Vital Signs: Last Vital Signs BP 122/72 10/15/23 12:09 BMI result Body Mass Index 22.3 Assessment & Plan Assessment & Plan (1) Postmenopausal bleeding: Code(s): N95.0 - Postmenopausal bleeding Plan: Discussed with the patient the pelvic ultrasound findings, the endometrial stripe thickenss measured by ultrasound 3 mm. The negative predictive value, positive predictive value, Sensitivity, specificity of using ultrasound measurement of endometrial stripe to detecting endometrial pathology including hyperplasia , polyp or cancer were discussed with the patient. Since the patient is having continuous vaginal bleeding/spotting , Recommended to the patient that the next step is an endometrial sampling via hysteroscopy D&C possible polypectomy versus endometrial biopsy to r/o endometrial pathology including hyperplasia or cancer. All the pros and cons risks and benefits of each approach were discussed with the patient, endometrial biopsy being less invasive, office procedure with less sensitivity and inability diagnose a polyp and removal versus hysteroscopy done under anesthesia more invasive more sensitive to endometrial cancer and possibility of diagnosing and endometrial polyp with the possibility of polypectomy. All questions were answered pt verbalized understanding and decided to proceed with endometrial biopsy. Offer to patient to proceed with an EMB today, the patient would like to reschedule appointment for EMB instead. Explained to patient the urgency of the EMB to rule out endometrial pathology including hyperplasia malignancy and/or polyp. All questions answered, the patient verbalized understanding. (2) Uterine myoma: Code(s): D25.9 - Leiomyoma of uterus, unspecified Plan: Discussed with the patient the results of the ultrasound and the size of the myomas compared to ultrasound findings in 0 8. Discussed with the patient risk of myosarcoma and symptoms that are caused by myomas including but not limited to pelvic pain, pressure symptoms, abnormal uterine bleeding. In addition discussed with the patient options of treatment for myomas including: Serial ultrasounds periodically to follow-up on the size of the myoma versus surgical treatmenti ncluding hysterectomy BSO. All pros and cons, risks and benefits of all options were discussed with the patient. The patient understands that delay in surgical treatment in case of myosarcoma can affect her prognosis, after further discussion, the patient decided to think about it and get back to us next visit Coding Level of Care Code Est Pt Level 3 (01161) Diagnoses Postmenopausal bleeding N95.0 Uterine myoma D25.9
[2023-10-15 12:09] VITALS: BP 122/72; BMI 22.3
== END 2023-10-15 13:41 | disposition home or self-care (01) ==
PROVIDERS: PCP Internal Medicine; Visit Provider Obstetrics & Gynecology
DX: N95.0 Postmenopausal bleeding (principal); D25.9 Leiomyoma of uterus, unspecified
CPT/HCPCS: 99213

== ENCOUNTER 2023-10-20 13:14 | Outpatient (REF) | payer MEDICARE, SELFPAY ==
[2023-10-20 16:10] LABS: MANUAL DIFF FLAG NO
[2023-10-20 16:22] LABS: Basophils Absolute Auto 0.1 X10*3/uL (0.0-0.2); Basophils Percent Auto 0.9 % (0-2); Eosinophils Absolute Auto 0.3 X10*3/uL (0.0-0.4); Eosinophils Percent Auto 2.8 % (0-4); Hematocrit 41.5 % (37.0-47.0); Hemoglobin 13.1 g/dl (12.0-16.0); Imm Gran Abs Auto 0.03 X10*3/uL (0.00-0.03); Imm Gran Pct Auto 0.3 % (0.0-0.4); Lymphocytes Absolute Auto 3.2 X10*3/uL (1.2-4.9); Mean Corpuscular HGB Conc 31.6 g/dl (31.0-35.0); Mean Corpuscular Hemoglobin 29.7 pg (27.0-33.0); Mean Corpuscular Volume 94.1 fL (80.0-98.0); Mean Platelet Volume 9.7 fL (9.4-12.3); Monocytes Absolute Auto 0.7 X10*3/uL (0.1-1.2); Monocytes Percent Auto 7.8 % (2-11); Neutrophils Absolute Auto 4.7 x10*3/uL (2.0-8.3); Neutrophils Percent Auto 52.2 % (45-73); Platelet Count 339 X10*3/uL (160-400); Red Blood Count 4.41 X10*6/uL (4.20-5.50); Red Cell Distribution Width 14.2 % (11.0-16.0)
[2023-10-20 16:38] LABS: Alanine Aminotransferase 17 U/L (0-31); Alkaline Phosphatase 92 U/L (39-117); Anion Gap 10 (12-20); Aspartate Amino Transferase 20 U/L (5-31); Bilirubin Total 0.3 mg/dL (0.0-1.0); Blood Urea Nitrogen 17 mg/dL (9-16); Calcium 9.5 mg/dL (8.4-10.2); Carbon Dioxide 28 mmol/L (22-29); Chloride 107 mmol/L (96-108); Estimated Glomerular Filt Rate > 60; Glucose Random 110 mg/dL (60-115); Potassium 4.1 mmol/L (3.3-5.1); Sodium 141 mmol/L (135-145); Total Protein 7.5 g/dL (6.5-8.0)
== END 2023-10-20 13:15 | disposition home or self-care (01) ==
LOC: HO.HMGCLDS 13:14
PROVIDERS: PCP Internal Medicine; Visit Provider Internal Medicine
DX: K92.1 Melena (principal); I10 Essential (primary) hypertension
CPT/HCPCS: 36415; 80053; 85025

== ENCOUNTER 2023-10-23 15:06 | Outpatient (AMB) | payer MEDICARE, SELFPAY ==
[2023-10-23 15:14] VITALS: BP 140/80; PULSE 91; O2SAT 92; BMI 22.7
--- NOTE | 2023-10-23 15:14 | MHC.PC.OV ---
Vital Signs 10/23/23 15:14 Height 5 ft 4 in Weight 132 lb 2 oz BMI 22.7 BP 140/80 H Blood Pressure Location Lt brachial Position Sitting Pulse 91 Pulse Source Pulse Oximeter Pulse Oximetry (%) 92 Oxygen Delivery Method Room Air Intake Visit Reasons: AWV Allergies codeine Allergy (Intermediate, Verified 10/23/23 15:15) redness/itching latex Allergy (Intermediate, Verified 10/23/23 15:15) Rash Tobacco use date assessed: 10/23/23 Fall risk assessment: No Falls in past year Last assessed Fall Risk: 10/23/23 Dental Screening Dental Screen Date: 10/23/23 Did you have a dental visit in the last 12 months?: No Did you have a dental problem in the last 6 months where you did not have access to dental care?: No Was dental information given to patient?: Patient has dentist [facility] Medical History Exercise hypoxemia Has been smoking tobacco for 1 year Anxiety Heart burn Arthritis Constipation COPD (chronic obstructive pulmonary disease) Hypertension, essential Surgical History H/O tooth extraction History of colonoscopy Family History Father Smoker Lung cancer Mother Alzheimer's disease History of breast cancer Thyroid disorder Family/Other No problems noted. Sister HTN (hypertension) Sister HTN (hypertension) Brother HTN (hypertension) History of heart attack Brother History of heart attack HTN (hypertension) Maternal Grandmother No problems noted. Maternal Grandfather No problems noted. Paternal Grandfather Unknown family medical history Paternal Grandmother Unknown family medical history Social History Housing: Condominium Are you a primary primary care sales representative to a significant other at home: No Do you presently have visiting nurse or other home services: No Alcohol intake: former Patient Tobacco Use Status: Former Tobacco user Quit Date: 11/2019 e-Cigarette/Vaping Use: Never Used Current occupational status: retired Cognitive needs: No Hearing needs: No Vision needs: No Questionnaire Thrive Questionnaire Date Thrive assessed: 01/29/22 YANIQUE-7 AMB Questionnaire YANIQUE-7 Date YANIQUE - 7 assessed: 01/29/22 Source: Developed by Drs. Maximilian Tang, Radha Mendoza, Fernandez No and colleagues, with an educational rachel from [employer]. Physical exam (Primary Care) Tobacco/Smoking Status: Tobacco use Status Tobacco use date assessed 06/03/23 06/03/23 15:46 Patient Tobacco Use Status Former Tobacco user 09/18/23 12:23 e-Cigarette/Vaping Use Never Used 06/03/23 15:46 Thrive Assessment: Date of Thrive Assessment Date Thrive assessed 01/29/22 06/03/23 15:46 Coding
--- NOTE | 2023-10-23 15:29 | A.OFFVIS_ITS ---
Intake Vital Signs 10/23/23 15:14 10/23/23 15:31 Height 5 ft 4 in Weight 132 lb 2 oz BMI 22.7 22.7 BP 140/80 H Blood Pressure Location Lt brachial Position Sitting Pulse 91 Pulse Source Pulse Oximeter Pulse Oximetry (%) 92 Oxygen Delivery Method Room Air Intake Visit Reasons: AWV Allergies codeine Allergy (Intermediate, Verified 10/23/23 15:15) redness/itching latex Allergy (Intermediate, Verified 10/23/23 15:15) Rash Medication List - Last Reconciled 10/23/23 by Drake Leos MD budesonide-formoterol 160-4.5 mcg/actuation (Symbicort) 2 puffs inhalation BID diltiazem HCl ER (Matzim [place]) 180 mg PO DAILY ipratropium-albuterol 20-100 mcg/actuation (Combivent Respimat) 1 puff inhalation Q6H PRN losartan 25 mg PO DAILY 30 days Do you need a note to return to daycare/school/sports/work: No HPI HPI Comments History of Present Illness Details AWV Medical/social history reviewed Past medical history reviewed [place] of care / care team list updated Surgical/ hospitalization history reviewed Current medications including OTC and supplements reviewed Family history reviewed Tobacco controlled form updated Alcohol use form updated Illicit drug use in social history reviewed Current diagnosis of depression ?screening updated Appropriate PHQ 2/PHQ-9 completed . Vital signs reviewed Alcohol tobacco drug use reviewed and discussed . MMSE completed . ? Fall risk: ?Assessed Fall history: ?None Have you had any falls with injury in the past year?? No Have you had 2 or more falls in the past year?? No Fall risk assessment completed Home safety discussed with the patient Functional ability assessed and discussed and documented Activities of daily living reviewed and appropriate actions taken . HRA filled out by the patient and reviewed by provider and scanned . Appropriate written screening schedule established . Any health advise needed provided . Advance care planning discussed with the patient , necessary paperwork filled Examination IPPE/AWE: Balance intact Romberg intact Tandem walk intact walk-in turn intact rise from sit to stand intact . ?Hearing ?whisper test pass . Medication list reviewed, patient is stable on medications All other providers patient is seeing discussed and noted . PFSH Medical History Exercise hypoxemia Has been smoking tobacco for 1 year Anxiety Heart burn Arthritis Constipation COPD (chronic obstructive pulmonary disease) Hypertension, essential Surgical History H/O tooth extraction History of colonoscopy Family History Father Smoker Lung cancer Mother Alzheimer's disease History of breast cancer Thyroid disorder Family/Other No problems noted. Sister HTN (hypertension) Sister HTN (hypertension) Brother HTN (hypertension) History of heart attack Brother History of heart attack HTN (hypertension) Maternal Grandmother No problems noted. Maternal Grandfather No problems noted. Paternal Grandfather Unknown family medical history Paternal Grandmother Unknown family medical history [facility] Are you a primary foster care therapist to a significant other at home: No Do you presently have visiting nurse or other home services: No Alcohol intake: former Patient Tobacco Use Status: Former Tobacco user Quit Date: 11/2019 e-Cigarette/Vaping Use: Never Used Current occupational status: retired Cognitive needs: No Hearing needs: No Vision needs: No Questionnaire Medicare Wellness Checkup [age] What gender do you identify with?: female During the past 4 weeks, how much have you been bothered by emotional problems such as feeling anxious, depressed, irritable, sad or downhearted, and blue?: moderately During the past 4 weeks, has your physical & emotional health limited your social activities with family, friends, neighbors, or groups?: moderately During the past 4 weeks, how much bodily pain have you generally had?: no pain During the past 4 weeks, was someone available to help you if you needed & wanted help?: yes, as much as I wanted During the past 4 weeks, what was the hardest physical activity you could do for at least 2 minutes?: heavy Can you get to places out of walking distance without help? (For eg., can you travel alone on buses, taxis or drive your car?): Yes Can you go shopping for groceries or clothes without someone's help?: No Can you prepare your own meals?: Yes Can you do your housework without help?: No Because of any health problems, do you need the help of another person with your personal care needs such as eating, bathing, dressing or getting around the house?: Yes Can you handle your own money without help?: Yes During the past 4 weeks, how would you rate your health in general?: fair During the past 4 weeks how have things been going for you?: pretty well Are you having difficulties driving your car?: no Do you always fasten your seat belt when you are in a car?: yes, usually During past 4 weeks, have you been bothered by the following: never: Falling or dizzy when standing up, Sexual problems?, Trouble eating well?, Teeth or denture problems? and Problems using the telephone? and seldom: Tiredness or fatigue? Have you fallen 2 or more times in the past year?: No Are you afraid of falling?: No Are you a smoker?: no During the past 4 weeks, how many drinks of wine, beer, or other alcoholic beverages did you have?: no alcohol at all Do you exercise for about 20 minutes 3 or more times a week?: no, I usually do not exercise this much Have you been given information to help with the following?: no: Hazards in your house that might hurt you? and no: Keeping track of your medications? How often do you have trouble taking medicines the way you have been told to take them?: I do not have to take medicine How confident are you that you can control & manage most of your health problems?: very confident What is your race?: White Mini Mental State Exam (MMSE) Orientation What is the (year) (season) (date) (day) (month)?: year, season, date, day and month Where are we (state) (county) (town or city) (hospital) (floor)?: state, county, town or city, hospital/clinic and floor Score Score: 10 Activity of Daily Living Bathing - sponge bath, tub bath or shower: receives no assistance (gets in/out by self, if usual bathing means Dressing - getting clothes from closets & drawers, including inner/outer ga rments & fasteners.: gets clothes & gets completely dressed without help Toileting - going to the 'toilet room' for urine/bowel elimination & cleaning self/arranging clothes: goes to toilet room, cleans self, arranges clothes without help Transfer: moves in & out of bed and chair without help (may use support object) Continence: controls urination/bowel movements completely by self Feeding: feeds self without help Total Score: 0 Information obtained from: patient Using telephone: independent Traveling: independent Shopping: independent Preparing meals: independent Housework: independent Taking medicine: independent Managing money: independent PHQ-9 Over the last 2 weeks, how often have you been bothered by any of the following problems? 1. Little interest or pleasure in doing things: not at all 2. Feeling down, depressed, or hopeless: not at all 3. Trouble falling or staying asleep, or sleeping too much: not at all 4. Feeling tired or having little energy: not at all 5. Poor appetite or overeating: not at all 6. Feeling bad about yourself - or that you are a failure or have let yourself or your family down: not at all 7. Trouble concentrating on things, such as reading the newspaper or watching television: not at all 8. Moving or speaking so slowly that other people could have noticed. Or the opposite - being so fidgety or restless that you have been moving around a lot more than usual: not at all 9. Thoughts that you would be better off or of hurting yourself in some way: not at all Total score: 0 Depression Screening Interpretation: Negative Depression Screening Done: Yes 91376 - PHQ-9 Billing: Yes Source: Developed by Drs. Maximilian Tang, Radha Mendoza, Fernandez No and colleagues, with an educational rachel from [employer] Physical Exam Vital Signs: Last Vital Signs Pulse 91 10/23/23 15:14 BP 140/80 H 10/23/23 15:14 Pulse Ox 92 10/23/23 15:14 Oxygen Delivery Method Room Air 10/23/23 15:14 BMI result Body Mass Index 22.7 Assessment & Plan Assessment & Plan (1) Medicare annual wellness visit, subsequent: Code(s): Z00.00 - Encounter for general adult medical examination without abnormal findings (2) Hypertension, essential: Code(s): I10 - Essential (primary) hypertension (3) COPD (chronic obstructive pulmonary disease): Comment: PATIENT HAS PAST HISTORY OF SMOKING 1 PACK A DAY FOR ALMOST 50+ YEARS. SHE DOES HAVE RATHER SEVERE DEGREE OF COPD. BUT LUCKILY SHE IS STAYING VERY STABLE. TX : CONTINUE TO USE SYMBICORT 160-4.52 PUFFS B.I.D., COMBIVENT RESPIMAT 1 INHALATION Q 6 HOURS P.R.N. MAY USE UP TO 3 TIMES A DAY. Code(s): J44.9 - Chronic obstructive pulmonary disease, unspecified Qualifiers: COPD type: unspecified COPD Qualified Code(s): J44.9 - Chronic obstructive pulmonary disease, unspecified Plan Patient had colonoscopy done which showed ohjupiin-su-ocylwk diverticulosis and moderate internal hemorrhoids She is under care of Dr. Migue CLEMENTS, and will have evaluation for uterine fibroids soon Quality Reporting (2019) Depression/Bipolar (159/160/161/177) PHQ-9: Total score: 0 Coding Level of Care Code Medicare Subsequent (G0439) Diagnoses Medicare annual wellness visit, subsequent Z00.00 Hypertension, essential I10 Chronic obstructive pulmonary disease, unspecified COPD type J44.9 COPD type: unspecified COPD CPT Codes Advance Care Planning - Time spent: 1-15 minutes, not on file ([id number]) Advance Care Planning Advance Care Planning discussion: Completed/Scanned Forms completed: [facility] [[email or web address]]ST Time spent: 1-15 minutes, not on file
[2023-10-23 15:31] VITALS: BMI 22.7
== END 2023-10-23 15:34 | disposition home or self-care (01) ==
PROVIDERS: PCP Internal Medicine; Visit Provider Internal Medicine
DX: Z00.00 Encounter for general adult medical examination without abnormal findings (principal); I10 Essential (primary) hypertension; J44.9 Chronic obstructive pulmonary disease, unspecified
CPT/HCPCS: 1124F; G0439

== ENCOUNTER 2023-12-01 11:07 | Outpatient (AMB) | payer MEDICARE, SELFPAY ==
[2023-12-01 11:19] VITALS: BP 126/82; BMI 22.7
--- NOTE | 2023-12-01 11:19 | A.OFFVIS_ITS ---
Intake Vital Signs 12/01/23 11:19 Height 5 ft 4 in Weight 132 lb BMI 22.7 BP 126/82 Intake Visit Reasons: EMB Community Development Manager Required: No Information Interpreted: non-clinical & clinical Director Of Accreditation: Director Of Accreditation Present (Akanksha) Allergies codeine Allergy (Intermediate, Verified 12/01/23 11:25) redness/itching latex Allergy (Intermediate, Verified 12/01/23 11:25) Rash Is last menstrual period known: No Post menopausal: Yes Patient : No HPI HPI Comments History of Present Illness Details Presenting for EMB PFSH Medical History Exercise hypoxemia Has been smoking tobacco for 1 year Anxiety Heart burn Arthritis Constipation COPD (chronic obstructive pulmonary disease) Hypertension, essential Surgical History H/O tooth extraction History of colonoscopy Family History Father Smoker Lung cancer Mother Alzheimer's disease History of breast cancer Thyroid disorder Family/Other No problems noted. Sister HTN (hypertension) Sister HTN (hypertension) Brother HTN (hypertension) History of heart attack Brother History of heart attack HTN (hypertension) Maternal Grandmother No problems noted. Maternal Grandfather No problems noted. Paternal Grandfather Unknown family medical history Paternal Grandmother Unknown family medical history Social History Housing: [facility] Are you a primary care partner to a significant other at home: No Do you presently have visiting nurse or other home services: No Alcohol intake: former Patient Tobacco Use Status: Former Tobacco user Quit Date: 11/2019 e-Cigarette/Vaping Use: Never Used Current occupational status: retired Cognitive needs: No Hearing needs: No Vision needs: No Female Reproductive History Menstrual control method: none Date of last pap smear: 08/04/23 (negative) Review of Systems Const All systems reviewed & are unremarkable except as noted in HPI and below Reports as per HPI and Reports no additional complaints GI Reports no additional complaints Reports no additional complaints Office Procedures Endometrial Biopsy Details: The patient was counseled regarding the indication and benefits of endometrial sampling to rule out endometrial pathology including not limited to endometrial hyperplasia or endometrial cancer and others; The alternatives (Either do nothing vs. hysteroscopy D&C) & the risks were discussed with the patient including but not limited: pain, uterine perforation, bleeding, infection, possible injury to bladder, bowel, ureter, possible need for blood transfusion with all its possible risks. The patient verbalized understanding all questions answered and signed consent. The patient was placed into the dorsal lithotomy position; a speculum was inserted in the vagina. Using aseptic technique for the procedure, the cervix was cleansed with Betadine. The anterior lip of the cervix was grasped with a single tooth tenaculum. The uterus was sounded to 7 cm with a 4 mm Pipelle was used. Tissues samples were obtained and placed in formalin, in a patient labeled container and sent to the pathology department. At the end of the procedure, there was minimal bleeding noted The patient tolerated the procedure well and was discharged in good condition with the following instructions: Nothing in the vagina until the bleeding stops. No sex until the bleeding stops, to call if any of the following occurs: fever (>100.4), flu-like symptoms, abdominal pain, heavy bleeding, four smelling vaginal discharge. The patient was instructed to schedule a Follow up appointment in 2 weeks to discuss pathology results of the biopsy and treatment options. This note was generated with a voice recognition program. Some errors may have been overlooked during the review of this note. Sometimes these errors may affect the content or meaning of a given sentence. [id number] Biopsy Assessment & Plan Assessment & Plan (1) Postmenopausal bleeding: Code(s): N95.0 - Postmenopausal bleeding Plan: EMB done, see procedure note Orders: Orders AMB Endometrial Biopsy Today N95.0 - Postmenopausal bleeding Coding Level of Care Code Procedure Only Diagnoses Postmenopausal bleeding N95.0 CPT Codes Endometrial Biopsy - CPT: 64385-Pxsnopubwza Biopsy ([id number])
== END 2023-12-01 12:20 | disposition home or self-care (01) ==
LOC: HO.HWS 11:07
PROVIDERS: PCP Internal Medicine; Visit Provider Obstetrics & Gynecology
DX: N95.0 Postmenopausal bleeding (principal)
CPT/HCPCS: 58100

== ENCOUNTER 2023-12-01 11:07 | Outpatient (REF) | payer MEDICARE, SELFPAY | END 2023-12-01 11:08 | disposition home or self-care (01) | LOC: HO.LNP 11:07 | PROVIDERS: PCP Internal Medicine; Visit Provider Obstetrics & Gynecology | DX: N95.0 Postmenopausal bleeding (principal) | CPT/HCPCS: 58100; 88305 ==

== ENCOUNTER 2023-12-15 12:58 | Outpatient (AMB) | payer MEDICARE, SELFPAY ==
[2023-12-15 13:08] VITALS: BP 120/76; BMI 22.7
--- NOTE | 2023-12-15 13:08 | MHC.OFFVIS ---
Intake Vital Signs 12/15/23 13:08 Height 5 ft 4 in Weight 132 lb BMI 22.7 BP 120/76 Intake Visit Reasons: EMB results Manager Instrumentation Required: No Allergies codeine Allergy (Intermediate, Verified 12/15/23 13:09) redness/itching latex Allergy (Intermediate, Verified 12/15/23 13:09) Rash Is last menstrual period known: No Post menopausal: Yes Patient : No HPI HPI Comments History of Present Illness Details The patient is presenting after endometrial biopsy. The patient has no complaints, no vaginal bleeding, no feverishness chills or abdominal pain. Endometrial biopsy pathology showed following: Endometrium, biopsy: Scant strips of benign atrophic endometrium; no atypia or carcinoma. [facility] Medical History Exercise hypoxemia Has been smoking tobacco for 1 year Anxiety Heart burn Arthritis Constipation COPD (chronic obstructive pulmonary disease) Hypertension, essential Surgical History H/O tooth extraction History of colonoscopy Family History Father Smoker Lung cancer Mother Alzheimer's disease History of breast cancer Thyroid disorder Family/Other No problems noted. Sister HTN (hypertension) Sister HTN (hypertension) Brother HTN (hypertension) History of heart attack Brother History of heart attack HTN (hypertension) Maternal Grandmother No problems noted. Maternal Grandfather No problems noted. Paternal Grandfather Unknown family medical history Paternal Grandmother Unknown family medical history Social History Housing: Condominium Are you a primary customer care representative to a significant other at home: No Do you presently have visiting nurse or other home services: No Alcohol intake: former Patient Tobacco Use Status: Former Tobacco user Quit Date: 11/2019 e-Cigarette/Vaping Use: Never Used Patient : No Current occupational status: retired Cognitive needs: No Hearing needs: No Vision needs: No Female Reproductive History Menstrual control method: none Review of Systems Const All systems reviewed & are unremarkable except as noted in HPI and below Reports as per HPI and Reports no additional complaints GI Reports no additional complaints Reports no additional complaints Physical Exam Vital Signs: Last Vital Signs BP 120/76 12/15/23 13:08 BMI result Body Mass Index 22.7 Assessment & Plan Assessment & Plan (1) Postmenopausal bleeding: Code(s): N95.0 - Postmenopausal bleeding Plan: Discussed with the patient the results of the endometrial biopsy showing scant benign atrophic endometrium. Discussed with the patient the sensitivity, specificity, positive and negative predictive value, of endometrial biopsy in detecting endometrial pathology including but not limited to endometrial hyperplasia, cancer and other pathology; instructed the patient to call in case vaginal bleeding bleeding recurs, the next step will be to proceed with a diagnostic hysteroscopy/D&C for further endometrial sampling evaluation to rule out endometrial pathology. All questions answered and the patient verbalized understanding and agreed with the plan. Coding Level of Care Code Est Pt Level 3 (58839) Diagnoses Postmenopausal bleeding N95.0
== END 2023-12-16 08:14 | disposition home or self-care (01) ==
LOC: HO.HWS 12:58
PROVIDERS: PCP Internal Medicine; Visit Provider Obstetrics & Gynecology
DX: N95.0 Postmenopausal bleeding (principal)
CPT/HCPCS: 99213

== ENCOUNTER → 2023-12-15 12:58 | Outpatient (BNVA) | payer MEDICARE, SELFPAY | PROVIDERS: PCP Internal Medicine; Visit Provider Obstetrics & Gynecology | DX: N95.0 Postmenopausal bleeding (principal) | CPT/HCPCS: 99212 ==

== ENCOUNTER 2024-02-16 15:30 | Outpatient (AMB) | payer MEDICARE, SELFPAY ==
[2024-02-16 15:41] VITALS: BP 120/60; PULSE 100; O2SAT 95; BMI 21.6
--- NOTE | 2024-02-16 15:41 | MHC.OFFVIS ---
Intake Vital Signs 02/16/24 15:41 Height 5 ft 4 in Weight 125 lb 10.616 oz BMI 21.6 BP 120/60 Blood Pressure Location Lt brachial Position Sitting Pulse 100 Pulse Source Pulse Oximeter Pulse Oximetry (%) 95 Oxygen Delivery Method Room Air Intake Visit Reasons: COPD Intake Note: pt is here for follow up and states she is feeling fine, no issues. some short of breath at times, uses inhaler. Pediatric Hospitalist Required: No Allergies codeine Allergy (Intermediate, Verified 02/16/24 16:08) redness/itching latex Allergy (Intermediate, Verified 02/16/24 16:08) Rash Medication List - Last Reconciled 02/16/24 by Juhi Watson MD budesonide-formoterol 160-4.5 mcg/actuation 2 puffs inhalation BID diltiazem HCl ER (Matzim [place]) 180 mg PO DAILY ipratropium-albuterol 20-100 mcg/actuation (Combivent Respimat) 1 puff inhalation Q6H PRN losartan 25 mg PO DAILY 30 days Do you need a note to return to daycare/school/sports/work: No HPI COPD HPI Details 73 YEARS OLD VERY PLEASANT AND ENERGETIC LADY IS HERE FOR 6 MONTHS FOLLOW-UP FOR COPD. SHE HAS BEEN DOING VERY WELL WITHOUT ANY ACUTE EXACERBATION. SHE CONTINUES TO USE SYMBICORT TWICE A DAY, AND USES COMBIVENT RESPIMAT ONLY NEEDED. SHE REMAINS ACTIVE AND GOES OUTDOORS FOR WALKING. SHE HAS VERY LITTLE COUGH, GETS SHORT OF BREATH ONLY IF SHE WALKS UP HILL OR CLIMBS STAIRS. [facility] Medical History Exercise hypoxemia Has been smoking tobacco for 1 year Anxiety Heart burn Arthritis Constipation COPD (chronic obstructive pulmonary disease) Hypertension, essential Surgical History H/O tooth extraction History of colonoscopy Family History Father Smoker Lung cancer Mother Alzheimer's disease History of breast cancer Thyroid disorder Family/Other No problems noted. Sister HTN (hypertension) Sister HTN (hypertension) Brother HTN (hypertension) History of heart attack Brother History of heart attack HTN (hypertension) Maternal Grandmother No problems noted. Maternal Grandfather No problems noted. Paternal Grandfather Unknown family medical history Paternal Grandmother Unknown family medical history Social [facility] Are you a primary primary care nurse practitioner to a significant other at home: No Do you presently have visiting nurse or other home services: No Alcohol intake: former Patient Tobacco Use Status: Former Tobacco user Quit Date: 11/2019 e-Cigarette/Vaping Use: Never Used Current occupational status: retired Cognitive needs: No Hearing needs: No Vision needs: No Review of Systems Const All systems reviewed & are unremarkable except as noted in HPI and below Eyes Reports no additional complaints ENT Reports no additional complaints Card Denies chest pain, Denies irregular heart rhythm and Denies leg edema Resp Reports as per HPI GI Reports constipation Reports no additional complaints Musc Reports myalgias (Mild arthritis pain) Skin/Breast Reports other (psoriasis on the feet) Neuro Reports no additional complaints Psych Reports no additional complaints Endo Reports no additional complaints Physical Exam Vital Signs: Last Vital Signs Pulse 100 02/16/24 15:41 BP 120/60 02/16/24 15:41 Pulse Ox 95 02/16/24 15:41 Oxygen Delivery Method Room Air 02/16/24 15:41 BMI result Body Mass Index 21.6 Const General: healthy appearing, comfortable, no acute distress, alert and awake Orientation/consciousness: patient oriented x3 HEENT Head: Yes normal to inspection General nose exam: No nasal polyps present and No nasal discharge present Face and sinus: Yes sinuses nontender Mouth: oropharynx normal Throat: Yes posterior oropharynx normal Eyes General: appearance normal, both eyes and all related structures Neck Neck: Yes normal visual inspection, Yes no lymphadenopathy, Yes trachea midline and Yes no JVD Thyroid: Thyroid normal Chest Chest palpation & inspection: normal inspection of the chest, normal palpation of entire chest wall and no tenderness Resp Other: Percussion note is resonant, breath sounds equal on both sides moderately distant with prolonged expiratory phase. No wheezes rhonchi or crepitations are heard. Cardio Palpation: normal PMI Rate: regular rate Rhythm: regular rhythm Heart sounds: no gallops and no murmurs Peripheral pulses: Peripheral pulses 2+ throughout GI Palpation (GI): Soft to palpation, nontender, No hepatosplenomegaly present and no masses Auscultation: normal bowel sounds Back/Spine/Pelvis Thoracic/Lumbar Spine: thoracic and lumbar spine normal to inspection Skin General skin exam: no rashes or lesions noted Neuro General: patient oriented x3 and no focal motor deficits Cranial nerves: Yes CN's II-XII intact bilaterally Extrem General: Yes normal to inspection, Yes no clubbing, cyanosis or edema and Yes no calf tenderness Psych Appearance: grossly normal and well kempt Speech and movement: Normal speech and movement present Assessment & Plan Assessment & Plan (1) COPD, severe: Comment: Patient does have severe obstructive airway disorder. It remains very controlled. And stable on her current medical regimen Code(s): J44.9 - Chronic obstructive pulmonary disease, unspecified Plan: TX : Advised to continue using Symbicort 160-4.52 puffs b.i.d. Advise that as long as she is free of any cough or wheezing, she may cut down the Symbicort to only 1 puff b.i.d.. and Combivent Respimat 1 inhalation Q 6 hours while awake (2) Has been smoking tobacco for 1 year: Comment: HISTORY OF SMOKING 1 PACK A DAY FOR 50+ YEARS. LUCKILY SHE QUIT IN 2019. And. She has no urge to go back to smoking Code(s): F17.200 - Nicotine dependence, unspecified, uncomplicated Plan: Commended for not smoking. (3) Exercise hypoxemia: Comment: PATIENT HAS EXERCISE INDUCED HYPOXEMIA. DISCUSSED WITH THE PATIENT AND HER . PATIENT MAINTAINS NORMAL O2 SAT AT REST. AFTER WALKING 4-5 MINUTES O2 SAT DOES DROP DOWN TO 87%. IT BOUNCES BACK TO NORMAL LEVEL WITH THAN 1 MINUTE AFTER RESTING. TALKED TO THE PATIENT ABOUT PORTABLE UNIT BUT SHE IS ADAMANTLY AGAINST IT. SHE PROMISES THAT SHE WILL KEEP ON MONITORING HER O2 SATS, AND WOULD NOT EXERCISE IF HER O2 SAT HAS DROP BELOW 88%. SHE IS GOING TO CONTINUE TO DO DEEP BREATHING EXERCISES. Code(s): R09.02 - Hypoxemia Plan: No need of oxygen Coding Level of Care Code Est Pt Level 3 (48954) Diagnoses COPD, severe J44.9 Has been smoking tobacco for 1 year F17.200 Exercise hypoxemia R09.02
== END 2024-02-16 16:09 | disposition home or self-care (01) ==
PROVIDERS: PCP Internal Medicine; Visit Provider Internal Medicine
DX: J44.9 Chronic obstructive pulmonary disease, unspecified (principal); F17.200 Nicotine dependence, unspecified, uncomplicated; R09.02 Hypoxemia
CPT/HCPCS: 99213

== ENCOUNTER → 2024-02-16 15:30 | Outpatient (BNVA) | payer MEDICARE, SELFPAY | PROVIDERS: PCP Internal Medicine; Visit Provider Internal Medicine | DX: J44.9 Chronic obstructive pulmonary disease, unspecified (principal); R09.02 Hypoxemia; Z87.891 Personal history of nicotine dependence | CPT/HCPCS: 99212 ==

== ENCOUNTER 2024-03-02 14:49 | Outpatient (AMB) | payer MEDICARE, SELFPAY ==
[2024-03-02 14:52] VITALS: BP 158/72; PULSE 101; O2SAT 97; BMI 21.8
--- NOTE | 2024-03-02 14:52 | A.OFFPC_ITS ---
Vital Signs 03/02/24 14:52 Height 5 ft 4 in Weight 127 lb 2 oz BMI 21.8 BP 158/72 H Blood Pressure Location Rt brachial Position Sitting Pulse 101 H Pulse Source Pulse Oximeter Pulse Oximetry (%) 97 Oxygen Delivery Method Room Air Intake Visit Reasons: 4 month fu Allergies codeine Allergy (Intermediate, Verified 03/02/24 14:58) redness/itching latex Allergy (Intermediate, Verified 03/02/24 14:58) Rash Medication List - Last Reconciled 03/02/24 by Drake Leos MD budesonide-formoterol 160-4.5 mcg/actuation 2 puffs inhalation BID diltiazem HCl ER (Matzim [place]) 180 mg PO DAILY ipratropium-albuterol 20-100 mcg/actuation (Combivent Respimat) 1 puff inhalation Q6H PRN losartan 25 mg PO DAILY 30 days Tobacco use date assessed: 03/02/24 Fall risk assessment: No Falls in past year Last assessed Fall Risk: 03/02/24 Dental Screening Dental Screen Date: 03/02/24 Did you have a dental visit in the last 12 months?: No Did you have a dental problem in the last 6 months where you did not have access to dental care?: No Was dental information given to patient?: Patient has dentist HPI 4 month fu HPI Details Patient is a 73-year-old female came in for her regular follow-up appointment She has been having a rash on site of her breasts and groin area for past few days which is very pruritic On examination it does not seem like a fungal rash, I have sent clobetasol cream patient may start using it 2 times a day for a week and then once at night if needed Blood pressure is slightly elevated today at 158/72 patient is taking losartan 25 mg and diltiazem 180 mg It was within normal range last visit, we will keep an eye on that. Patient also have a COPD and she is seeing Dr. Caraballo for the management and is taking inhalers through them She is due for labs, order placed to be done today. Follow-up 4 months I have noticed that patient also have mild tremor in both of her hands, which is not bothering [facility] Medical History Exercise hypoxemia Has been smoking tobacco for 1 year Anxiety Heart burn Arthritis Constipation COPD (chronic obstructive pulmonary disease) Hypertension, essential Surgical History H/O tooth extraction History of colonoscopy Family History Father Smoker Lung cancer Mother Alzheimer's disease History of breast cancer Thyroid disorder Family/Other No problems noted. Sister HTN (hypertension) Sister HTN (hypertension) Brother HTN (hypertension) History of heart attack Brother History of heart attack HTN (hypertension) Maternal Grandmother No problems noted. Maternal Grandfather No problems noted. Paternal Grandfather Unknown family medical history Paternal Grandmother Unknown family medical history Social History [facility] Are you a primary acute care registered nurse to a significant other at home: No Do you presently have visiting nurse or other home services: No Alcohol intake: former Patient Tobacco Use Status: Former Tobacco user Quit Date: 11/2019 e-Cigarette/Vaping Use: Never Used Current occupational status: retired Cognitive needs: No Hearing needs: No Vision needs: No Questionnaire PHQ-9 Over the last 2 weeks, how often have you been bothered by any of the following problems? 1. Little interest or pleasure in doing things: not at all 2. Feeling down, depressed, or hopeless: not at all 3. Trouble falling or staying asleep, or sleeping too much: not at all 4. Feeling tired or having little energy: not at all 5. Poor appetite or overeating: not at all 6. Feeling bad about yourself - or that you are a failure or have let yourself or your family down: not at all 7. Trouble concentrating on things, such as reading the newspaper or watching television: not at all 8. Moving or speaking so slowly that other people could have noticed. Or the opposite - being so fidgety or restless that you have been moving around a lot more than usual: not at all 9. Thoughts that you would be better off or of hurting yourself in some way: not at all Total score: 0 Depression Screening Interpretation: Negative Depression Screening Done: Yes 32537 - PHQ-9 Billing: Yes Source: Developed by Drs. Maximilian Tang, Radha Mendoza, Fernandez No and colleagues, with an educational rachel from [employer] Thrive Questionnaire Date Thrive assessed: 01/29/22 AUDIT C Alcohol Use Questionnaire (AUDIT-C) 1. How often do you have a drink containing alcohol?: Never 3. How often do you have six or more drinks on one occasion?: Never Total Score: 0 Score Reviewed/Action Taken: Yes YANIQUE-7 AMB Questionnaire YANIQUE-7 Date YANIQUE - 7 assessed: 01/29/22 Source: Developed by Drs. Maximilian Tang, Radha Mendoza, Fernandez No and colleagues, with an educational rachel from [employer]. Review of Systems Const Denies chills and Denies fever(s) ENT Denies epistaxis and Denies nasal discharge Card Denies chest pain Resp Denies chest congestion, Denies cough and Denies hemoptysis GI Denies diarrhea and Denies nausea Neuro Reports no additional complaints Psych Reports no additional complaints Endo Reports no additional complaints Physical exam (Primary Care) Tobacco/Smoking Status: Tobacco use Status Tobacco use date assessed 06/03/23 03/02/24 14:54 Patient Tobacco Use Status Former Tobacco user 03/02/24 14:54 e-Cigarette/Vaping Use Never Used 03/02/24 14:54 Depression Screening Interpretation: Negative Thrive Assessment: Date of Thrive Assessment Date Thrive assessed 01/29/22 03/02/24 14:54 Const General: cooperative, comfortable and no acute distress Orientation/consciousness: patient oriented x3 HENMT Head: Yes normocephalic Eyes General: appearance normal, both eyes and all related structures Neck Neck: Yes supple Resp Effort & Inspection: normal respiratory effort, no cough and no stridor Cardio Rhythm: regular rhythm Heart sounds: S1 normal heart sound present and S2 normal heart sound present Skin Other: Mild erythema both side of chest left more than right General skin exam: turgor normal Neuro General: patient oriented x3, tone normal and moves all extremities Extrem Right lower extremity: no edema Left lower extremity: no edema Assessment and Plan Assessment & Plan (1) Hypertension, essential: Code(s): I10 - Essential (primary) hypertension (2) Pruritic rash: Code(s): L28.2 - Other prurigo (3) COPD, severe: Comment: Patient does have severe obstructive airway disorder. It remains very controlled. And stable on her current medical regimen Code(s): J44.9 - Chronic obstructive pulmonary disease, unspecified Plan Patient is a 73-year-old female came in for her regular follow-up appointment She has been having a rash on site of her breasts and groin area for past few days which is very pruritic On examination it does not seem like a fungal rash, I have sent clobetasol cream patient may start using it 2 times a day for a week and then once at night if needed Blood pressure is slightly elevated today at 158/72 patient is taking losartan 25 mg and diltiazem 180 mg It was within normal range last visit, we will keep an eye on that. Patient also have a COPD and she is seeing Dr. Caraballo for the management and is taking inhalers through them She is due for labs, order placed to be done today. Follow-up 4 months I have noticed that patient also have mild tremor in both of her hands, which is not bothering Orders: Orders Comprehensive Met. Panel Today I10 - Essential (primary) hypertension TSH reflex Free T4 Today I10 - Essential (primary) hypertension Complete Blood Count Auto Diff Today I10 - Essential (primary) hypertension LDL Cholesterol Direct Today I10 - Essential (primary) hypertension Medications: New clobetasol 0.05% 1 appl topical BID 2 weeks 60 grams 0RF Coding Level of Care Code Est Pt Level 3 (83138) Diagnoses Hypertension, essential I10 Pruritic rash L28.2 COPD, severe J44.9
== END 2024-03-02 15:16 | disposition home or self-care (01) ==
PROVIDERS: PCP Internal Medicine; Visit Provider Internal Medicine
DX: I10 Essential (primary) hypertension (principal); L28.2 Other prurigo; J44.9 Chronic obstructive pulmonary disease, unspecified
CPT/HCPCS: 99213

== ENCOUNTER 2024-03-02 15:10 | Outpatient (REF) | payer MEDICARE, SELFPAY ==
[2024-03-02 16:01] LABS: MANUAL DIFF FLAG NO
[2024-03-02 16:13] LABS: Basophils Absolute Auto 0.1 X10*3/uL (0.0-0.2); Basophils Percent Auto 0.7 % (0-2); Eosinophils Absolute Auto 0.2 X10*3/uL (0.0-0.4); Eosinophils Percent Auto 2.1 % (0-4); Hematocrit 39.8 % (37.0-47.0); Imm Gran Abs Auto 0.02 X10*3/uL (0.00-0.03); Imm Gran Pct Auto 0.2 % (0.0-0.4); Lymphocytes Absolute Auto 2.3 X10*3/uL (1.2-4.9); Lymphocytes Percent Auto 23.1 % (20-40); Mean Corpuscular HGB Conc 32.7 g/dl (31.0-35.0); Mean Corpuscular Hemoglobin 30.7 pg (27.0-33.0); Mean Corpuscular Volume 94.1 fL (80.0-98.0); Mean Platelet Volume 9.3 fL (9.4-12.3); Monocytes Absolute Auto 0.6 X10*3/uL (0.1-1.2); Monocytes Percent Auto 6.2 % (2-11); Neutrophils Absolute Auto 6.8 x10*3/uL (2.0-8.3); Neutrophils Percent Auto 67.7 % (45-73); Platelet Count 350 X10*3/uL (160-400); Red Blood Count 4.23 X10*6/uL (4.20-5.50); Red Cell Distribution Width 14.9 % (11.0-16.0); White Blood Count 10.1 X10*3/uL (4.8-10.8)
[2024-03-02 16:40] LABS: Alanine Aminotransferase 15 U/L (0-31); Albumin Level 4.2 g/dL (3.5-5.0); Alkaline Phosphatase 96 U/L (39-117); Anion Gap 12 (12-20); Aspartate Amino Transferase 17 U/L (5-31); Bilirubin Total 0.3 mg/dL (0.0-1.0); Blood Urea Nitrogen 17 mg/dL (9-16); Calcium 9.7 mg/dL (8.4-10.2); Carbon Dioxide 29 mmol/L (22-29); Chloride 105 mmol/L (96-108); Estimated Glomerular Filt Rate > 60; Glucose Random 93 mg/dL (60-115); Sodium 142 mmol/L (135-145)
[2024-03-02 16:55] LABS: TSH reflex Free T4 1.34 uIU/mL (0.32-4.0)
[2024-03-04 10:03] LABS: LDL Cholesterol Direct 139 mg/dL (<100)
== END 2024-03-02 15:11 | disposition home or self-care (01) ==
LOC: HO.HMGCLDS 15:10
PROVIDERS: PCP Internal Medicine; Visit Provider Internal Medicine
DX: I10 Essential (primary) hypertension (principal)
CPT/HCPCS: 36415; 80053; 83721; 84443; 85025

== ENCOUNTER 2024-07-08 14:21 | Outpatient (AMB) | payer MEDICARE, SELFPAY ==
[2024-07-08 14:22] VITALS: BP 140/82; PULSE 103; O2SAT 96; BMI 22.7
--- NOTE | 2024-07-08 14:22 | A.OFFPC_ITS ---
Vital Signs 07/08/24 14:22 Height 5 ft 4 in Weight 132 lb BMI 22.7 BP 140/82 H Blood Pressure Location Rt brachial Position Sitting Pulse 103 H Pulse Source Pulse Oximeter Pulse Oximetry (%) 96 Oxygen Delivery Method Room Air Intake Visit Reasons: 8 month fu Allergies codeine Allergy (Intermediate, Verified 07/08/24 14:23) redness/itching latex Allergy (Intermediate, Verified 07/08/24 14:23) Rash Medication List - Last Reconciled 07/08/24 by Drake Leos MD budesonide-formoterol 160-4.5 mcg/actuation 2 puffs inhalation BID clobetasol 0.05% 1 appl topical BID 2 weeks diltiazem HCl ER (Matzim [place]) 180 mg PO DAILY 90 days ipratropium-albuterol 20-100 mcg/actuation (Combivent Respimat) 1 puff inhalation Q6H PRN losartan 50 mg PO DAILY 90 days Tobacco use date assessed: 07/08/24 Fall risk assessment: No Falls in past year Last assessed Fall Risk: 07/08/24 Dental Screening Dental Screen Date: 03/02/24 HPI 8 month fu HPI Details Patient is a 73-year-old female came in for her regular follow-up appointment Hypertension: Blood pressure is still elevated I am increasing her losartan dose to 50 mg she is to continue with diltiazem 180 mg Due for labs order placed, she is monitoring her blood pressure at home and knows that it should be between 120 and 130 systolic. Patient also have a COPD and she is seeing Dr. Watson for the management, and is taking inhalers through them Patient do not want to come every 4 months, she says that she will come every six-month Labs are needed every time she comes in q.6. [facility] Medical History Exercise hypoxemia Has been smoking tobacco for 1 year Anxiety Heart burn Arthritis Constipation COPD (chronic obstructive pulmonary disease) Hypertension, essential Surgical History H/O tooth extraction History of colonoscopy Family History Father Smoker Lung cancer Mother Alzheimer's disease History of breast cancer Thyroid disorder Family/Other No problems noted. Sister HTN (hypertension) Sister HTN (hypertension) Brother HTN (hypertension) History of heart attack Brother History of heart attack HTN (hypertension) Maternal Grandmother No problems noted. Maternal Grandfather No problems noted. Paternal Grandfather Unknown family medical history Paternal Grandmother Unknown family medical history Social History Housing: Condominium Are you a primary direct care supervisor to a significant other at home: No Do you presently have visiting nurse or other home services: No Alcohol intake: former Patient Tobacco Use Status: Former Tobacco user e-Cigarette/Vaping Use: Never Used service: No Current occupational status: retired Cognitive needs: No Hearing needs: No Vision needs: No Questionnaire Thrive Questionnaire Date Thrive assessed: 01/29/22 YANIQUE-7 AMB Questionnaire YANIQUE-7 Date YANIQUE - 7 assessed: 01/29/22 Source: Developed by Drs. Maximilian Tang, Radha Mendoza, Fernandez No and colleagues, with an educational rachel from [employer]. Review of Systems Const Denies chills and Denies fever(s) ENT Denies epistaxis and Denies nasal discharge Card Denies chest pain Resp Denies chest congestion, Denies cough and Denies hemoptysis GI Denies diarrhea and Denies nausea Skin/Breast Denies rash Neuro Reports no additional complaints Psych Reports no additional complaints Endo Reports no additional complaints Physical exam (Primary Care) Vital Signs: Last Vital Signs Pulse 103 H 07/08/24 14:22 BP 140/82 H 07/08/24 14:22 Pulse Ox 96 07/08/24 14:22 Oxygen Delivery Method Room Air 07/08/24 14:22 BMI result Body Mass Index 22.7 Tobacco/Smoking Status: Tobacco use Status Tobacco use date assessed 07/08/24 07/08/24 14:26 Patient Tobacco Use Status Former Tobacco user 07/08/24 14:26 e-Cigarette/Vaping Use Never Used 07/08/24 14:26 Thrive Assessment: Date of Thrive Assessment Date Thrive assessed 01/29/22 07/08/24 14:26 Const General: cooperative, comfortable and no acute distress Orientation/consciousness: patient oriented x3 HENMT Head: Yes normocephalic Eyes General: appearance normal, both eyes and all related structures Neck Neck: Yes supple Resp Effort & Inspection: normal respiratory effort, no cough and no stridor Cardio Rhythm: regular rhythm Heart sounds: S1 normal heart sound present and S2 normal heart sound present Skin General skin exam: turgor normal Neuro General: patient oriented x3, tone normal and moves all extremities Extrem Right lower extremity: no edema Left lower extremity: no edema Assessment and Plan Assessment & Plan (1) Hypertension, essential: Code(s): I10 - Essential (primary) hypertension (2) COPD, severe: Comment: Patient does have severe obstructive airway disorder. It remains very controlled. And stable on her current medical regimen Code(s): J44.9 - Chronic obstructive pulmonary disease, unspecified Plan Patient is a 73-year-old female came in for her regular follow-up appointment Hypertension: Blood pressure is still elevated I am increasing her losartan dose to 50 mg she is to continue with diltiazem 180 mg Due for labs order placed, she is monitoring her blood pressure at home and knows that it should be between 120 and 130 systolic. Patient also have a COPD and she is seeing Dr. Watson for the management, and is taking inhalers through them Patient do not want to come every 4 months, she says that she will come every six-month Labs are needed every time she comes in q.6. Orders: Orders Complete Blood Count Auto Diff Today I10 - Essential (primary) hypertension Comprehensive Met. Panel Today I10 - Essential (primary) hypertension Comprehensive [place]. Panel Fast 6 Months I10 - Essential (primary) hypertension, J44.9 - Chronic obstructive pulmonary disease, unspecified Complete Blood Count Auto Diff 6 Months I10 - Essential (primary) hypertension, J44.9 - Chronic obstructive pulmonary disease, unspecified Medications: Changed From losartan 25 mg PO DAILY 30 days 90 tabs 0RF To losartan 50 mg PO DAILY 90 days 90 tabs 0RF From diltiazem HCl ER (Matzim [place]) 180 mg PO DAILY 60 tabs 2RF To diltiazem HCl ER (Matzim [place]) 180 mg PO DAILY 90 days 90 tabs 3RF Coding Level of Care Code Est Pt Level 3 (85681) Diagnoses Hypertension, essential I10 COPD, severe J44.9
== END 2024-07-08 15:03 | disposition home or self-care (01) ==
PROVIDERS: PCP Internal Medicine; Visit Provider Internal Medicine
DX: I10 Essential (primary) hypertension (principal); J44.9 Chronic obstructive pulmonary disease, unspecified
CPT/HCPCS: 99213

== ENCOUNTER 2024-07-08 15:03 | Outpatient (REF) | payer MEDICARE, SELFPAY ==
[2024-07-08 16:24] LABS: MANUAL DIFF FLAG NO
[2024-07-08 16:32] LABS: Basophils Absolute Auto 0.1 X10*3/uL (0.0-0.2); Basophils Percent Auto 1.1 % (0-2); Eosinophils Absolute Auto 0.1 X10*3/uL (0.0-0.4); Eosinophils Percent Auto 1.7 % (0-4); Hematocrit 42.2 % (37.0-47.0); Hemoglobin 13.4 g/dl (12.0-16.0); Imm Gran Abs Auto 0.02 X10*3/uL (0.00-0.03); Imm Gran Pct Auto 0.3 % (0.0-0.4); Lymphocytes Absolute Auto 1.9 X10*3/uL (1.2-4.9); Lymphocytes Percent Auto 25.5 % (20-40); Mean Corpuscular HGB Conc 31.8 g/dl (31.0-35.0); Mean Corpuscular Hemoglobin 29.8 pg (27.0-33.0); Mean Corpuscular Volume 93.8 fL (80.0-98.0); Mean Platelet Volume 9.3 fL (9.4-12.3); Monocytes Absolute Auto 0.5 X10*3/uL (0.1-1.2); Monocytes Percent Auto 6.2 % (2-11); Neutrophils Absolute Auto 4.7 x10*3/uL (2.0-8.3); Neutrophils Percent Auto 65.2 % (45-73); Platelet Count 336 X10*3/uL (160-400); Red Cell Distribution Width 13.7 % (11.0-16.0); White Blood Count 7.3 X10*3/uL (4.8-10.8)
[2024-07-08 16:47] LABS: Alanine Aminotransferase 15 U/L (0-31); Albumin Level 4.2 g/dL (3.5-5.0); Alkaline Phosphatase 98 U/L (39-117); Anion Gap 12 (12-20); Aspartate Amino Transferase 19 U/L (5-31); Bilirubin Total 0.4 mg/dL (0.0-1.0); Blood Urea Nitrogen 15 mg/dL (9-16); Calcium 9.8 mg/dL (8.4-10.2); Carbon Dioxide 27 mmol/L (22-29); Chloride 106 mmol/L (96-108); Estimated Glomerular Filt Rate > 60; Glucose Random 100 mg/dL (60-115); Potassium 4.4 mmol/L (3.3-5.1); Sodium 141 mmol/L (135-145); Total Protein 7.8 g/dL (6.5-8.0)
== END 2024-07-08 15:04 | disposition home or self-care (01) ==
LOC: HO.HMGCLDS 15:03
PROVIDERS: PCP Internal Medicine; Visit Provider Internal Medicine
DX: I10 Essential (primary) hypertension (principal)
CPT/HCPCS: 36415; 80053; 85025

== ENCOUNTER 2024-08-23 15:22 | Outpatient (AMB) | payer MEDICARE, SELFPAY ==
--- NOTE | 2024-08-23 15:47 | MHC.OFFVIS ---
Vital Signs 08/23/24 15:48 Height 5 ft 4 in Weight 134 lb 7.712 oz BMI 23.1 BP 134/70 Blood Pressure Location Lt brachial Position Sitting Pulse 89 Pulse Source Pulse Oximeter Pulse Oximetry (%) 95 Oxygen Delivery Method Room Air Intake Visit Reasons: COPD Intake Note: pt is here for follow up and is feeling good. 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 Allergies codeine Allergy (Intermediate, Verified 08/23/24 15:52) redness/itching latex Allergy (Intermediate, Verified 08/23/24 15:52) Rash Medication List - Last Reconciled 08/23/24 by Juhi Watson MD budesonide-formoterol 160-4.5 mcg/actuation 2 puffs inhalation BID clobetasol 0.05% 1 appl topical BID 2 weeks diltiazem HCl ER (Matzim [place]) 180 mg PO DAILY 90 days ipratropium-albuterol 20-100 mcg/actuation (Combivent Respimat) 1 puff inhalation Q6H PRN losartan 50 mg PO DAILY 90 days Do you need a note to return to daycare/school/sports/work: No HPI HPI COPD: Details: TERELL IS 73 YEARS OLD VERY PLEASANT AND ENERGETIC LADY, COMES AFTER 6 MONTHS FOR HER ROUTINE FOLLOW-UP FOR COPD. SHE DENIES ANY ACTIVE SYMPTOMS. USING SYMBICORT TWICE A DAY ACTUALLY ONLY 1 PUFF B.I.D., AND NEEDS TO USE COMBIVENT RESPIMAT ONLY ONCE IN A WHILE RESCUE INHALER. LUCKILY SHE HAS HAD NO RESPIRATORY INFECTIONS, SHE IS. UP TO DATE ON VACCINATION SHE IS NONSMOKER. FORMERLY [facility] Medical History (Updated 08/23/24 @ 16:04 by Juhi Watson MD) History of smoking at least 1 pack per day for at least 30 years Exercise hypoxemia Has been smoking tobacco for 1 year Anxiety Heart burn Arthritis Constipation COPD (chronic obstructive pulmonary disease) Hypertension, essential Surgical History H/O tooth extraction History of colonoscopy Family History Father Smoker Lung cancer Mother Alzheimer's disease History of breast cancer Thyroid disorder Family/Other No problems noted. Sister HTN (hypertension) Sister HTN (hypertension) Brother HTN (hypertension) History of heart attack Brother History of heart attack HTN (hypertension) Maternal Grandmother No problems noted. Maternal Grandfather No problems noted. Paternal Grandfather Unknown family medical history Paternal Grandmother Unknown family medical history Social History Housing: [facility] Are you a primary career center director to a significant other at home: No Do you presently have visiting nurse or other home services: No Alcohol intake: former Patient Tobacco Use Status: Former Tobacco user e-Cigarette/Vaping Use: Never Used service: No Current occupational status: retired Cognitive needs: No Hearing needs: No Vision needs: No Review of Systems Const All systems reviewed & are unremarkable except as noted in HPI and below Eyes Reports no additional complaints ENT Reports no additional complaints Card Denies chest pain, Denies irregular heart rhythm and Denies leg edema Resp Reports as per HPI GI Reports constipation Reports no additional complaints Musc Reports myalgias (Mild arthritis pain) Skin/Breast Reports other (psoriasis on the feet) Neuro Reports no additional complaints Psych Reports no additional complaints Endo Reports no additional complaints Physical Exam Vital Signs: Last Vital Signs Pulse 89 08/23/24 15:48 BP 134/70 08/23/24 15:48 Pulse Ox 95 08/23/24 15:48 Oxygen Delivery Method Room Air 08/23/24 15:48 BMI result Body Mass Index 23.1 Const General: healthy appearing, comfortable, no acute distress, alert and awake Orientation/consciousness: patient oriented x3 HEENT Head: Yes normal to inspection General nose exam: No nasal polyps present and No nasal discharge present Face and sinus: Yes sinuses nontender Mouth: oropharynx normal Throat: Yes posterior oropharynx normal Eyes General: appearance normal, both eyes and all related structures Neck Neck: Yes normal visual inspection, Yes no lymphadenopathy, Yes trachea midline and Yes no JVD Thyroid: Thyroid normal Chest Chest palpation & inspection: normal inspection of the chest, normal palpation of entire chest wall and no tenderness Resp Other: Percussion note is resonant, breath sounds equal on both sides moderately distant with prolonged expiratory phase. No wheezes rhonchi or crepitations are heard. Cardio Palpation: normal PMI Rate: regular rate Rhythm: regular rhythm Heart sounds: no gallops and no murmurs Peripheral pulses: Peripheral pulses 2+ throughout GI Palpation (GI): Soft to palpation, nontender, No hepatosplenomegaly present and no masses Auscultation: normal bowel sounds Back/Spine/Pelvis Thoracic/Lumbar Spine: thoracic and lumbar spine normal to inspection Skin General skin exam: no rashes or lesions noted Neuro General: patient oriented x3 and no focal motor deficits Cranial nerves: Yes CN's II-XII intact bilaterally Extrem General: Yes normal to inspection, Yes no clubbing, cyanosis or edema and Yes no calf tenderness Psych Appearance: grossly normal and well kempt Speech and movement: Normal speech and movement present Assessment & Plan Assessment & Plan (1) COPD, severe: Comment: Patient does have severe obstructive airway disorder. It remains controlled very well and stable on her current medical regimen Code(s): J44.9 - Chronic obstructive pulmonary disease, unspecified Category: Medical Plan: Budesonide-formoterol 160-4.52 puffs b.i.d.. If stable and symptoms are minimal then she can continue only 1 puff b.i.d. Combivent Respimat 1 puff Q 6 hours p.r.n. (2) History of smoking at least 1 pack per day for at least 30 years: Comment: She has history of smoking 1 pack a day for 50 years but luckily she quit in 2020. Code(s): Z87.891 - Personal history of nicotine dependence Category: Social Hx Plan: Commended for not smoking. She does not want to be in the lung screening program. Coding Level of Care Code Est Pt Level 3 (47213) Diagnoses COPD, severe J44.9 History of smoking at least 1 pack per day for at least 30 years Z87.891
[2024-08-23 15:48] VITALS: BP 134/70; PULSE 89; O2SAT 95; BMI 23.1
== END 2024-08-23 16:00 | disposition home or self-care (01) ==
PROVIDERS: PCP Internal Medicine; Visit Provider Internal Medicine
DX: J44.9 Chronic obstructive pulmonary disease, unspecified (principal); Z87.891 Personal history of nicotine dependence
CPT/HCPCS: 99213

== ENCOUNTER → 2024-08-23 15:22 | Outpatient (BNVA) | payer MEDICARE, SELFPAY | PROVIDERS: PCP Internal Medicine; Visit Provider Internal Medicine | DX: J44.9 Chronic obstructive pulmonary disease, unspecified (principal); Z87.891 Personal history of nicotine dependence | CPT/HCPCS: 99212 ==

== ENCOUNTER 2025-01-12 12:45 | Outpatient (REF) | payer MEDICARE, SELFPAY ==
[2025-01-12 16:45] LABS: Appearance Urine Cloudy; Color Urine Yellow; Glucose Urine UA Negative (Negative); Leukocyte Esterase Urine Moderate (2+) (Negative); Nitrite Urine Negative (Negative); PH 5.5 (5.0-9.0); UMIC TRIGGER UACC YES; Urine Blood Large (3+) (Negative); Urine Ketones Negative (Negative); Urine Protein 100 (2+) mg/dL (Neg-Trace)
[2025-01-12 16:47] LABS: Bacteria Urine None Seen (None Seen); Hyaline Casts Urine 0-2 /LPF (0-2); RBC Urine >20 /HPF (0-2); Squamous Epithelial Cell Urine 0-2 /HPF (0-2); UACC Culture Trigger YES; WBC Urine >50 /HPF (0-5)
== END 2025-01-12 12:46 | disposition home or self-care (01) ==
LOC: HO.HMGCLNP 12:45
PROVIDERS: PCP Internal Medicine; Visit Provider Internal Medicine
DX: R35.0 Frequency of micturition (principal); R30.0 Dysuria
CPT/HCPCS: 81001; 87086

== ENCOUNTER 2025-01-13 13:19 | Outpatient (AMB) | payer MEDICARE, SELFPAY ==
--- NOTE | 2025-01-13 13:17 | MHC.PC.OV ---
Intake Visit Reasons: Discuss UA results Allergies codeine Allergy (Intermediate, Verified 01/13/25 13:17) redness/itching latex Allergy (Intermediate, Verified 01/13/25 13:17) Rash Tobacco use date assessed: 01/13/25 Fall risk assessment: No Falls in past year Last assessed Fall Risk: 01/13/25 Dental Screening Dental Screen Date: 01/13/25 Did you have a dental visit in the last 12 months?: Yes Did you have a dental problem in the last 6 months where you did not have access to dental care?: No Was dental information given to patient?: Patient has dentist HPI Discuss UA results HPI Details History - The patient is a 74-year-old female presenting with urinary urgency and dysuria. - Symptoms include burning at the end of urination and frequent urges to urinate starting two days ago. - Absence of fever, chills, back pain, or hematuria reported. - Symptomatic management with Azo started upon onset of symptoms. - Urinary analysis confirms a significant bladder infection. Problem List - Urinary Tract Infection Patient Instructions - Start taking the prescribed antibiotic immediately. - Schedule a follow-up visit in one week. - Perform a repeat urine test the day before the follow-up appointment to assess infection clearance. - Complete a fasting blood test order before the follow-up visit. Review of Systems - Genitourinary: Reports urinary urgency and dysuria; Denies fever, chills, back pain, hematuria. - General: No fever no chills - Neurological: No headaches no dizziness - Ear nose throat: No sore throat no hearing difficulty no ear pain - Cardiovascular: No syncope, no chest pain, no palpitations - Gastrointestinal: No nausea vomiting or diarrhea [facility] Medical History History of smoking at least 1 pack per day for at least 30 years Exercise hypoxemia Has been smoking tobacco for 1 year Anxiety Heart burn Arthritis Constipation COPD (chronic obstructive pulmonary disease) Hypertension, essential Surgical History H/O tooth extraction History of colonoscopy Family History Father Smoker Lung cancer Mother Alzheimer's disease History of breast cancer Thyroid disorder Family/Other No problems noted. Sister HTN (hypertension) Sister HTN (hypertension) Brother HTN (hypertension) History of heart attack Brother History of heart attack HTN (hypertension) Maternal Grandmother No problems noted. Maternal Grandfather No problems noted. Paternal Grandfather Unknown family medical history Paternal Grandmother Unknown family medical history Social History [facility]: [facility] Are you a primary child care supervisor to a significant other at home: No Do you presently have visiting nurse or other home services: No Alcohol intake: former Patient Tobacco Use Status: Former Tobacco user e-Cigarette/Vaping Use: Never Used service: No Current occupational status: retired Cognitive needs: No Hearing needs: No Vision needs: No Questionnaire PHQ-9 Over the last 2 weeks, how often have you been bothered by any of the following problems? 70731 - PHQ-9 Billing: Patient declined-do not bill Source: Developed by Drs. Maximilian Tang, Radha Mendoza, Fernandez No and colleagues, with an educational rachel from [employer]. Thrive Questionnaire Date Thrive assessed: 01/13/25 I am a: Patient What is your living situation today?: I have a steady place to live Within the past 12 months, did the food you bought not last and you didn't have the money to get more?: Never true Within the past 12 months, did you worry whether your food would run out before you got money to buy more?: Never true Do you have trouble paying for medicines?: No Do you have trouble getting transportation to medical appointments?: No Do you have trouble paying your heating and electricity bill?: No Do you have trouble taking care of your child, family member or friend?: No Do you have trouble with day-to-day activities such as bathing, preparing meals, shopping, managing finances, etc.?: No Are you currently unemployed and looking for a job?: No Are you interested in more education?: No Please select the resources that you would like help with: None Currently or been in a relationship where the following occur: I choose not to answer THRIVE Score: 0 AUDIT C Alcohol Use Questionnaire (AUDIT-C) 1. How often do you have a drink containing alcohol?: Never 3. How often do you have six or more drinks on one occasion?: Never Total Score: 0 Score Reviewed/Action Taken: Yes YANIQUE-7 AMB Questionnaire YANIUQE-7 Date YANIQUE - 7 assessed: 01/13/25 Feeling nervous, anxious, or on edge: 0 = Not at all Not being able to stop or control worryin = Not at all Worrying too much about different things: 0 = Not at all Trouble relaxin = Not at all Being so restless that it is hard to sit still: 0 = Not at all Becoming easily annoyed or irritable: 0 = Not at all Feeling afraid as if something awful might happen: 0 = Not at all Total YANIQUE-7 score (0-4 normal; 5-9 mild; 10-14 moderate; 15-21 severe): 0 Source: Developed by Drs. Maximilian Tang, Radha Mendoza, Fernandez No and colleagues, with an educational rachel from [employer]. YANIQUE-7 Assessment Billing YANIQUE-7 Assessment Tool: YANIQUE-7 Assessment 26773 Physical exam (Primary Care) Tobacco/Smoking Status: Tobacco use Status Tobacco use date assessed 01/13/25 01/13/25 13:18 Patient Tobacco Use Status Former Tobacco user 01/13/25 13:18 e-Cigarette/Vaping Use Never Used 01/13/25 13:18 Thrive Assessment: Date of Thrive Assessment Date Thrive assessed 01/13/25 01/13/25 13:18 Currently or been in a relationship where the following occur: I choose not to answer Telehealth Telehealth Telehealth [facility] Location of provider rendering services: practice address Location of patient: address on file Patient Identification confirmed using: Name, : Yes Telehealth method: voice only Patient verbally consented to treatment: Yes Patient verbally consented to billing insurance company: Yes Patient informed of any privacy concerns related to visit: Yes Minutes spent on Phone/Video with Pt.: 12 Coding Level of Care Code Tele Est Pt Level 3 (43283) Diagnoses Acute cystitis with hematuria N30.01 Additional Codes YANIQUE-7 Assessment Billing - YANIQUE-7 Assessment Tool: YANIQUE-7 Assessment [id number] ([id number]) Assessment & Plan Assessment & Plan (1) Acute cystitis with hematuria: Code(s): N30.01 - Acute cystitis with hematuria Category: Medical Plan History - The patient is a 74-year-old female presenting with urinary urgency and dysuria. - Symptoms include burning at the end of urination and frequent urges to urinate starting two days ago. - Absence of fever, chills, back pain, or hematuria reported. - Symptomatic management with Azo started upon onset of symptoms. - Urinary analysis confirms a significant bladder infection. Problem List - Urinary Tract Infection Patient Instructions - Start taking the prescribed antibiotic immediately. - Schedule a follow-up visit in one week. - Perform a repeat urine test the day before the follow-up appointment to assess infection clearance. - Complete a fasting blood test order before the follow-up visit. Review of Systems - Genitourinary: Reports urinary urgency and dysuria; Denies fever, chills, back pain, hematuria. - General: No fever no chills - Neurological: No headaches no dizziness - Ear nose throat: No sore throat no hearing difficulty no ear pain - Cardiovascular: No syncope, no chest pain, no palpitations - Gastrointestinal: No nausea vomiting or diarrhea
== END 2025-01-13 13:58 | disposition home or self-care (01) ==
LOC: HO.HMCC 13:19
PROVIDERS: PCP Internal Medicine; Visit Provider Internal Medicine
DX: N30.01 Acute cystitis with hematuria (principal)

== ENCOUNTER → 2025-01-13 13:19 | Outpatient (BNVA) | payer MEDICARE, SELFPAY | PROVIDERS: PCP Internal Medicine; Visit Provider Internal Medicine | DX: N30.01 Acute cystitis with hematuria (principal) | CPT/HCPCS: 96127 ==

== ENCOUNTER 2025-01-19 11:42 | Outpatient (REF) | payer MEDICARE, SELFPAY ==
[2025-01-19 13:16] LABS: Appearance Urine Clear; Color Urine Yellow; Glucose Urine UA Negative (Negative); Leukocyte Esterase Urine Small (1+) (Negative); Nitrite Urine Negative (Negative); PH 5.5 (5.0-9.0); Specific Gravity - Urine 1.015 (1.005-1.025); UMIC TRIGGER UACC YES; Urine Blood Negative (Negative); Urine Ketones Negative (Negative); Urine Protein Negative (Neg-Trace)
[2025-01-19 13:25] LABS: Bacteria Urine None Seen (None Seen); Hyaline Casts Urine 0-2 /LPF (0-2); RBC Urine 0-2 /HPF (0-2); UACC Culture Trigger YES
[2025-01-19 13:43] LABS: MANUAL DIFF FLAG NO
[2025-01-19 13:46] LABS: Basophils Absolute Auto 0.1 X10*3/uL (0.0-0.2); Basophils Percent Auto 0.9 % (0-2); Eosinophils Absolute Auto 0.1 X10*3/uL (0.0-0.4); Eosinophils Percent Auto 1.9 % (0-4); Hematocrit 37.5 % (37.0-47.0); Imm Gran Abs Auto 0.02 X10*3/uL (0.00-0.03); Imm Gran Pct Auto 0.3 % (0.0-0.4); Lymphocytes Percent Auto 27.3 % (20-40); Mean Corpuscular Hemoglobin 29.9 pg (27.0-33.0); Mean Corpuscular Volume 93.3 fL (80.0-98.0); Mean Platelet Volume 9.4 fL (9.4-12.3); Monocytes Absolute Auto 0.6 X10*3/uL (0.1-1.2); Monocytes Percent Auto 8.1 % (2-11); Neutrophils Absolute Auto 4.6 x10*3/uL (2.0-8.3); Neutrophils Percent Auto 61.5 % (45-73); Platelet Count 357 X10*3/uL (160-400); Red Blood Count 4.02 X10*6/uL (4.20-5.50); Red Cell Distribution Width 14.2 % (11.0-16.0); White Blood Count 7.4 X10*3/uL (4.8-10.8)
[2025-01-19 14:24] LABS: Alanine Aminotransferase 19 U/L (0-31); Albumin Level 3.9 g/dL (3.5-5.0); Alkaline Phosphatase 95 U/L (39-117); Anion Gap 11 (12-20); Aspartate Amino Transferase 23 U/L (5-31); Bilirubin Total 0.3 mg/dL (0.0-1.0); Blood Urea Nitrogen 19 mg/dL (9-16); Calcium 9.3 mg/dL (8.4-10.2); Carbon Dioxide 28 mmol/L (22-29); Chloride 105 mmol/L (96-108); Estimated Glomerular Filt Rate > 60; Glucose Fasting 96 mg/dL (60-99); Potassium 4.3 mmol/L (3.3-5.1); Sodium 140 mmol/L (135-145); Total Protein 7.5 g/dL (6.5-8.0)
== END 2025-01-19 11:43 | disposition home or self-care (01) ==
LOC: HO.HMGCLDS 11:42
PROVIDERS: PCP Internal Medicine; Visit Provider Internal Medicine
DX: J44.9 Chronic obstructive pulmonary disease, unspecified (principal); I10 Essential (primary) hypertension; R35.0 Frequency of micturition; R30.0 Dysuria
CPT/HCPCS: 36415; 80053; 81001; 85025; 87086

== ENCOUNTER 2025-01-20 11:26 | Outpatient (AMB) | payer MEDICARE, SELFPAY ==
[2025-01-20 11:29] VITALS: BP 152/64; PULSE 114; O2SAT 95; BMI 23.2
--- NOTE | 2025-01-20 11:29 | A.OFFVIS_ITS ---
Intake Vital Signs 01/20/25 11:29 Height 5 ft 4 in Weight 135 lb BMI 23.2 BP 152/64 H Blood Pressure Location Lt brachial Position Sitting Pulse 114 H Pulse Source Pulse Oximeter Pulse Oximetry (%) 95 Oxygen Delivery Method Room Air Intake Visit Reasons: SWV G0439 Allergies codeine Allergy (Intermediate, Verified 01/20/25 11:29) redness/itching latex Allergy (Intermediate, Verified 01/20/25 11:29) Rash Medication List - Last Reconciled 01/20/25 by Drake Leos MD budesonide-formoterol 160-4.5 mcg/actuation 2 puffs inhalation BID clobetasol 0.05% 1 appl topical BID 2 weeks diltiazem HCl ER 180 mg PO DAILY ipratropium-albuterol 20-100 mcg/actuation (Combivent Respimat) 1 puff inhalation Q6H PRN losartan 50 mg PO DAILY 90 days Do you need a note to return to daycare/school/sports/work: No HPI [facility] G0439 HPI Details Health Maintenance - Recommendation for routine mammogram; patient has not had one for some time - Encouragement of annual eye examinatio ns particularly given the patient's age and blurring vision - Mention of previous colonoscopy perfor med in September 2023, results were normal, but the patient is hesitant about future procedures - Discussion about family history of cat aracts; none reported except sister recently had one, high recommendation for eye examination - Education provided on pelvic floor str engthening and hygiene recommendations to reduce urinary tract infection risk Assessment and Plan 1. Essential Hypertension: The patient's essential hypertension requires monitoring due to higher readings during office visits, despite normal home recordings. She is currently managed with diltiazem and losartan. Continued monitoring and adherence to current medication therapy is vital. 2. Urinary Tract Infection (UTI), [facility] ed: Previously diagnosed UTI is substantially improved, with culture results pending. Prophylactic hygiene measures recommended to prevent recurrence include personal hygiene improvements. No immediate pharmacologic intervention planned without new culture data. 3. Vision Blurring: With the absence of family history for cataracts and noted blurring, the patient is advised to undergo regular eye exams given her age and current visual symptoms. An eye care provider on [address] is a viable option. 4. Bacteriuria, resolving: The patient's resolving bacteriuria, likely related to her recent UTI, is being monitored until culture returns. Management contingent upon further testing results, but symptomatic improvement suggests no acute intervention requirement. 5. History of Colonoscopy: Her prior nor mal colonoscopy in 2022 eases current concerns. Education on the importance of following guidelines was provided, respecting her hesitance for future procedures. HPI Comments History of Present Illness Details AWV Medical/social history reviewed Past medical history reviewed [place] of care / care team list updated Surgical/ hospitalization history reviewed Current medications including OTC and supplements reviewed Family history reviewed Tobacco controlled form updated Alcohol use form updated Illicit drug use in social history reviewed Current diagnosis of depression ?screening updated Appropriate PHQ 2/PHQ-9 completed . Vital signs reviewed Alcohol tobacco drug use reviewed and discussed . MMSE completed . ? Fall risk: ?Assessed Fall history: ?None Have you had any falls with injury in the past year?? No Have you had 2 or more falls in the past year?? No Fall risk assessment completed Home safety discussed with the patient Functional ability assessed and discussed and documented Activities of daily living reviewed and appropriate actions taken . HRA filled out by the patient and reviewed by provider and scanned . Appropriate written screening schedule established . Any health advise needed provided . Advance care planning discussed with the patient , necessary paperwork filled Examination IPPE/AWE: Balance intact Romberg intact Tandem walk intact walk-in turn intact rise from sit to stand intact . ?Hearing ?whisper test pass . Medication list reviewed, patient is stable on medications All other providers patient is seeing discussed and noted . [facility] Medical History History of smoking at least 1 pack per day for at least 30 years Exercise hypoxemia Has been smoking tobacco for 1 year Anxiety Heart burn Arthritis Constipation COPD (chronic obstructive pulmonary disease) Hypertension, essential Surgical History H/O tooth extraction History of colonoscopy Family History Father Smoker Lung cancer Mother Alzheimer's disease History of breast cancer Thyroid disorder Family/Other No problems noted. Sister HTN (hypertension) Sister HTN (hypertension) Brother HTN (hypertension) History of heart attack Brother History of heart attack HTN (hypertension) Maternal Grandmother No problems noted. Maternal Grandfather No problems noted. Paternal Grandfather Unknown family medical history Paternal Grandmother Unknown family medical history Social History Housing: Condominium Are you a primary child care leader to a significant other at home: No Do you presently have visiting nurse or other home services: No Alcohol intake: former Patient Tobacco Use Status: Former Tobacco user e-Cigarette/Vaping Use: Never Used service: No Current occupational status: retired Cognitive needs: No Hearing needs: No Vision needs: No Questionnaire Medicare Wellness Checkup [age] What gender do you identify with?: female During the past 4 weeks, how much have you been bothered by emotional problems such as feeling anxious, depressed, irritable, sad or downhearted, and blue?: not at all During the past 4 weeks, has your physical & emotional health limited your social activities with family, friends, neighbors, or groups?: not at all During the past 4 weeks, how much bodily pain have you generally had?: no pain During the past 4 weeks, was someone available to help you if you needed & wanted help?: yes, as much as I wanted During the past 4 weeks, what was the hardest physical activity you could do for at least 2 minutes?: moderate Can you get to places out of walking distance without help? (For eg., can you travel alone on buses, taxis or drive your car?): Yes Can you go shopping for groceries or clothes without someone's help?: Yes Can you prepare your own meals?: Yes Can you do your housework without help?: Yes Because of any health problems, do you need the help of another person with your personal care needs such as eating, bathing, dressing or getting around the house?: No Can you handle your own money without help?: Yes During the past 4 weeks, how would you rate your health in general?: good During the past 4 weeks how have things been going for you?: very well; could hardly better Are you having difficulties driving your car?: no Do you always fasten your seat belt when you are in a car?: yes, usually During past 4 weeks, have you been bothered by the following: never: Falling or dizzy when standing up, Sexual problems?, Trouble eating well? and Problems using the telephone?, seldom: Tiredness or fatigue? and sometimes: Teeth or denture problems? Have you fallen 2 or more times in the past year?: No Are you afraid of falling?: No Are you a smoker?: no During the past 4 weeks, how many drinks of wine, beer, or other alcoholic beverages did you have?: no alcohol at all Do you exercise for about 20 minutes 3 or more times a week?: no, I usually do not exercise this much Have you been given information to help with the following?: no: Hazards in your house that might hurt you? and no: Keeping track of your medications? How often do you have trouble taking medicines the way you have been told to take them?: I always take medicine as prescribed How confident are you that you can control & manage most of your health problems?: very confident What is your race?: White Mini Mental State Exam (MMSE) Orientation What is the (year) (season) (date) (day) (month)?: year, season, date, day and month Where are we (state) (county) (town or city) (hospital) (floor)?: state, county, town or city, hospital/clinic and floor Score Score: 10 Activity of Daily Living Bathing - sponge bath, tub bath or shower: receives no assistance (gets in/out by self, if usual bathing means Dressing - getting clothes from closets & drawers, including inner/outer garments & fasteners.: gets clothes & gets completely dressed without help Toileting - going to the 'toilet room' for urine/bowel elimination & cleaning s elf/arranging clothes: goes to toilet room, cleans self, arranges clothes without help Transfer: moves in & out of bed and chair without help (may use support object) Continence: controls urination/bowel movements completely by self Feeding: feeds self without help Total Score: 0 Information obtained from: patient Using telephone: independent Traveling: independent Shopping: independent Preparing meals: independent Housework: independent Taking medicine: independent Managing money: independent PHQ-9 Over the last 2 weeks, how often have you been bothered by any of the following problems? 1. Little interest or pleasure in doing things: not at all 2. Feeling down, depressed, or hopeless: not at all 3. Trouble falling or staying asleep, or sleeping too much: not at all 4. Feeling tired or having little energy: not at all 5. Poor appetite or overeating: not at all 6. Feeling bad about yourself - or that you are a failure or have let yourself or your family down: not at all 7. Trouble concentrating on things, such as reading the newspaper or watching television: not at all 8. Moving or speaking so slowly that other people could have noticed. Or the opposite - being so fidgety or restless that you have been moving around a lot more than usual: not at all 9. Thoughts that you would be better off or of hurting yourself in some way: not at all Total score: 0 Depression Screening Interpretation: Negative Depression Screening Done: Yes 25695 - PHQ-9 Billing: Yes Source: Developed by Drs. Maximilian Tang, Radha Mendoza, Fernandez No and colleagues, with an educational rachel from [employer]. Review of Systems Const Denies chills and Denies fever(s) ENT Denies epistaxis and Denies nasal discharge Card Denies chest pain Resp Denies chest congestion, Denies cough and Denies hemoptysis GI Denies diarrhea and Denies nausea Skin/Breast Denies rash Neuro Reports no additional complaints Psych Reports no additional complaints Endo Reports no additional complaints Physical Exam Vital Signs: Last Vital Signs Pulse 114 H 01/20/25 11:29 BP 152/64 H 01/20/25 11:29 Pulse Ox 95 01/20/25 11:29 Oxygen Delivery Method Room Air 01/20/25 11:29 BMI result Body Mass Index 23.2 Const General: cooperative, comfortable and no acute distress Orientation/consciousness: patient oriented x3 HEENT Head: Yes normocephalic Eyes General: appearance normal, both eyes and all related structures Neck Other: Supple Neck: Yes supple Resp Effort & Inspection: normal respiratory effort, no cough and no stridor Cardio Rhythm: regular rhythm Heart sounds: S1 normal heart sound present and S2 normal heart sound present Skin General skin exam: turgor normal Neuro Other: Motor sensory intact General: patient oriented x3, tone normal and moves all extremities Extrem Other: No lower extremity swelling. Right lower extremity: no edema Left lower extremity: no edema Psych Other: Normal effect, speech clear Assessment & Plan Assessment & Plan (1) Medicare annual wellness visit, subsequent: Code(s): Z00.00 - Encounter for general adult medical examination without abnormal findings (2) Blurring of vision: Code(s): H53.8 - Other visual disturbances (3) Hypertension, essential: Code(s): I10 - Essential (primary) hypertension (4) COPD (chronic obstructive pulmonary disease): Comment: PATIENT HAS PAST HISTORY OF SMOKING 1 PACK A DAY FOR ALMOST 50+ YEARS. SHE DOES HAVE RATHER SEVERE DEGREE OF COPD. BUT LUCKILY SHE IS STAYING VERY STABLE. [place] : CONTINUE TO USE SYMBICORT 160-4.52 PUFFS B.I.D., COMBIVENT RESPIMAT 1 INHALATION Q 6 HOURS P.R.N. MAY USE UP TO 3 TIMES A DAY. Code(s): J44.9 - Chronic obstructive pulmonary disease, unspecified Qualifiers: COPD type: unspecified COPD Qualified Code(s): J44.9 - Chronic obstructive pulmonary disease, unspecified Plan Health Maintenance - Recommendation for routine mammogram; patient has not had one for some time - Encouragement of annual eye examinations particularly given the patient's age and blurring vision - Mention of previous colonoscopy performed in September 2023, results were n ormal, but the patient is hesitant about future procedures - Discussion about family history of cataracts; none reported except sister recently had one, high recommendation for eye examination - Education provided on pelvic floor strengthening and hygiene recommendations to reduce urinary tract infection risk Assessment and Plan 1. Essential Hypertension: The patient's essential hypertension requires monitoring due to higher readings during office visits, despite normal home recordings. She is currently managed with diltiazem and losartan. Continued monitoring and adherence to current medication therapy is vital. 2. Urinary Tract Infection (UTI), resolved: Previously diagnosed UTI is substantially improved, with culture results pending. Prophylactic hygiene measures recommended to prevent recurrence include personal hygiene improvements. No immediate pharmacologic intervention planned without new culture data. 3. Vision Blurring: With the absence of family history for cataracts and noted blurring, the patient is advised to undergo regular eye exams given her age and current visual symptoms. An eye care provider on [address] is a viable option. 4. Bacteriuria, resolving: The patient's resolving bacteriuria, likely related to her recent UTI, is being monitored until culture returns. Management contingent upon further testing results, but symptomatic improvement suggests no acute intervention requirement. 5. History of Colonoscopy: Her prior normal colonoscopy in 2022 eases current concerns. Education on the importance of following guidelines was provided, respecting her hesitance for future procedures. Orders: Orders MM tomosynthesis screening BI Today Z12.31 - Encounter for screening mammogram for malignant neoplasm of breast Referrals Ophthalmology Referral H53.8 - Other visual disturbances Quality Reporting (2019) Depression/Bipolar (159/160/161/177) PHQ-9: Total score: 0 Coding Level of Care Code Medicare Subsequent (G0439) Est Pt Level 3 (18312) Diagnoses Medicare annual wellness visit, subsequent Z00.00 Blurring of vision H53.8 Hypertension, essential I10 Chronic obstructive pulmonary disease, unspecified COPD type J44.9 COPD type: unspecified COPD CPT Codes Advance Care Planning - Time spent: 1-15 minutes, not on file ([id number]) Additional Codes PHQ-9 - 98540 - PHQ-9 Billing: Yes ([id number]) Advance Care Planning Advance Care Planning discussion: Completed/Scanned Forms completed: Health Care Proxy Time spent: 1-15 minutes, not on file
== END 2025-01-20 11:55 | disposition home or self-care (01) ==
LOC: HO.HMCC 11:26
PROVIDERS: PCP Internal Medicine; Visit Provider Internal Medicine
DX: Z00.00 Encounter for general adult medical examination without abnormal findings (principal); H53.8 Other visual disturbances; I10 Essential (primary) hypertension; J44.9 Chronic obstructive pulmonary disease, unspecified

== ENCOUNTER → 2025-01-20 11:26 | Outpatient (BNVA) | payer MEDICARE, SELFPAY | PROVIDERS: PCP Internal Medicine; Visit Provider Internal Medicine | DX: Z00.00 Encounter for general adult medical examination without abnormal findings (principal); H53.8 Other visual disturbances; I10 Essential (primary) hypertension; J44.9 Chronic obstructive pulmonary disease, unspecified; Z87.891 Personal history of nicotine dependence | CPT/HCPCS: 96127 ==

== ENCOUNTER 2025-02-28 15:23 | Outpatient (AMB) | payer MEDICARE, SELFPAY ==
[2025-02-28 15:39] VITALS: BP 142/70; PULSE 86; O2SAT 95; BMI 23.1
--- NOTE | 2025-02-28 15:39 | A.OFFVIS_ITS ---
Vital Signs 02/28/25 15:39 Height 5 ft 4 in Weight 134 lb 7.712 oz BMI 23.1 BP 142/70 H Blood Pressure Location Lt brachial Position Sitting Pulse 86 Pulse Source Pulse Oximeter Pulse Oximetry (%) 95 Oxygen Delivery Method Room Air Intake Visit Reasons: COPD Intake Note: pt is here for follow up and states she is fine, nothing new going on. [employer] Required: No Allergies codeine Allergy (Intermediate, Verified 02/28/25 16:19) redness/itching latex Allergy (Intermediate, Verified 02/28/25 16:19) Rash Medication List - Last Reconciled 02/28/25 by Juhi Watson MD budesonide-formoterol 160-4.5 mcg/actuation 2 puffs inhalation BID clobetasol 0.05% 1 appl topical BID 2 weeks diltiazem HCl ER 180 mg PO DAILY ipratropium-albuterol 20-100 mcg/actuation (Combivent Respimat) 1 puff inhalation Q6H PRN losartan 50 mg PO DAILY 90 days Do you need a note to return to daycare/school/sports/work: No HPI HPI COPD: Details: 74 years old very pleasant female is here for 6 months follow-up. Breathing status has remained very stable, with some ups and Downs due to change in the weather. She has used Symbicort 1 puff b.i.d. for a few months but then had to go back to 2 puffs b.i.d. when she starts having more congestion and some wheezing. He uses Combivent Respimat only once in a while when she has to do something in a hurry. Luckily she has had no chest infection . He quit smoking in 2020 [facility] Medical History History of smoking at least 1 pack per day for at least 30 years Exercise hypoxemia Has been smoking tobacco for 1 year Anxiety Heart burn Arthritis Constipation COPD (chronic obstructive pulmonary disease) Hypertension, essential Surgical History H/O tooth extraction History of colonoscopy Family History Father Smoker Lung cancer Mother Alzheimer's disease History of breast cancer Thyroid disorder Family/Other No problems noted. Sister HTN (hypertension) Sister HTN (hypertension) Brother HTN (hypertension) History of heart attack Brother History of heart attack HTN (hypertension) Maternal Grandmother No problems noted. Maternal Grandfather No problems noted. Paternal Grandfather Unknown family medical history Paternal Grandmother Unknown family medical history Social History Housing: [facility] Are you a primary client care specialist to a significant other at home: No Do you presently have visiting nurse or other home services: No Alcohol intake: former Patient Tobacco Use Status: Former Tobacco user e-Cigarette/Vaping Use: Never Used service: No Current occupational status: retired Cognitive needs: No Hearing needs: No Vision needs: No Review of Systems Const All systems reviewed & are unremarkable except as noted in HPI and below Eyes Reports no additional complaints ENT Reports no additional complaints Card Denies chest pain, Denies irregular heart rhythm and Denies leg edema Resp Reports as per HPI GI Reports constipation Reports no additional complaints Musc Reports myalgias (Mild arthritis pain) Skin/Breast Reports other (psoriasis on the feet) Neuro Reports no additional complaints Psych Reports no additional complaints Endo Reports no additional complaints Physical Exam Vital Signs: Last Vital Signs Pulse 86 02/28/25 15:39 BP 142/70 H 02/28/25 15:39 Pulse Ox 95 02/28/25 15:39 Oxygen Delivery Method Room Air 02/28/25 15:39 BMI result Body Mass Index 23.1 Const General: healthy appearing, comfortable, no acute distress, alert and awake Orientation/consciousness: patient oriented x3 HEENT Head: Yes normal to inspection General nose exam: No nasal polyps present and No nasal discharge present Face and sinus: Yes sinuses nontender Mouth: oropharynx normal Throat: Yes posterior oropharynx normal Eyes General: appearance normal, both eyes and all related structures Neck Neck: Yes normal visual inspection, Yes no lymphadenopathy, Yes trachea midline and Yes no JVD Thyroid: Thyroid normal Chest Chest palpation & inspection: normal inspection of the chest, normal palpation of entire chest wall and no tenderness Resp Other: Percussion note is resonant, breath sounds equal on both sides moderately distant with prolonged expiratory phase. No wheezes rhonchi or crepitations are heard. Cardio Palpation: normal PMI Rate: regular rate Rhythm: regular rhythm Heart sounds: no gallops and no murmurs Peripheral pulses: Peripheral pulses 2+ throughout GI Palpation (GI): Soft to palpation, nontender, No hepatosplenomegaly present and no masses Auscultation: normal bowel sounds Back/Spine/Pelvis Thoracic/Lumbar Spine: thoracic and lumbar spine normal to inspection Skin General skin exam: no rashes or lesions noted Neuro General: patient oriented x3 and no focal motor deficits Cranial nerves: Yes CN's II-XII intact bilaterally Extrem General: Yes normal to inspection, Yes no clubbing, cyanosis or edema and Yes no calf tenderness Psych Appearance: grossly normal and well kempt Speech and movement: Normal speech and movement present Assessment & Plan Assessment & Plan (1) COPD (chronic obstructive pulmonary disease): Comment: PATIENT HAS PAST HISTORY OF SMOKING 1 PACK A DAY FOR ALMOST 50+ YEARS. SHE DOES HAVE RATHER SEVERE DEGREE OF COPD. BUT LUCKILY SHE IS STAYING VERY STABLE. Code(s): J44.9 - Chronic obstructive pulmonary disease, unspecified Category: Medical Qualifiers: COPD type: unspecified COPD Qualified Code(s): J44.9 - Chronic obstructive pulmonary disease, unspecified Plan: TX : CONTINUE TO USE SYMBICORT 160-4.5 2 PUFFS B.I.D., and when symptoms are fully controlled may try to go down to 1 puff b.i.d.. COMBIVENT RESPIMAT 1 INHALATION Q 6 HOURS P.R.N. MAY USE UP TO 3 TIMES A DAY. (2) Has been smoking tobacco for 1 year: Comment: HISTORY OF SMOKING 1 PACK A DAY FOR 50+ YEARS. LUCKILY SHE QUIT IN 2019. And She has no urge to go back to smoking Code(s): F17.200 - Nicotine dependence, unspecified, uncomplicated Category: Social Hx Plan: Commended for having quit smoking. (3) Exercise hypoxemia: Comment: PATIENT HAS EXERCISE INDUCED HYPOXEMIA. DISCUSSED WITH THE PATIENT AND HER . PATIENT MAINTAINS NORMAL O2 SAT AT REST. AFTER WALKING 4-5 MINUTES O2 SAT DOES DROPPED DOWN TO 87%. IT BOUNCES BACK TO NORMAL LEVEL WITH THAN 1 MINUTE AFTER RESTING. Code(s): R09.02 - Hypoxemia Category: Medical Plan: TALKED TO THE PATIENT ABOUT PORTABLE UNIT BUT SHE IS ADAMANTLY AGAINST IT. SHE PROMISES THAT SHE WILL KEEP ON MONITORING HER O2 SATS, AND WOULD NOT EXERCISE IF HER O2 SAT HAS DROP BELOW 88%. SHE IS GOING TO CONTINUE TO DO DEEP BREATHING EXERCISES. Medications: Changed From budesonide-formoterol 160-4.5 mcg/actuation 2 puffs inhalation BID 10.2 ea 0RF J44.9 - Chronic obstructive pulmonary disease, unspecified To budesonide-formoterol 160-4.5 mcg/actuation 2 puffs inhalation BID 30 days 10.2 ea 5RF J44.9 - Chronic obstructive pulmonary disease, unspecified Coding Level of Care Code Est Pt Level 3 (13353) Diagnoses Chronic obstructive pulmonary disease, unspecified COPD type J44.9 COPD type: unspecified COPD Has been smoking tobacco for 1 year F17.200 Exercise hypoxemia R09.02
== END 2025-02-28 16:19 | disposition home or self-care (01) ==
LOC: HO.HPS 15:24
PROVIDERS: PCP Internal Medicine; Visit Provider Internal Medicine
DX: J44.9 Chronic obstructive pulmonary disease, unspecified (principal); F17.200 Nicotine dependence, unspecified, uncomplicated; R09.02 Hypoxemia
CPT/HCPCS: 99213

== ENCOUNTER → 2025-02-28 15:23 | Outpatient (BNVA) | payer MEDICARE, SELFPAY | PROVIDERS: PCP Internal Medicine; Visit Provider Internal Medicine | DX: J44.9 Chronic obstructive pulmonary disease, unspecified (principal); R09.02 Hypoxemia; Z87.891 Personal history of nicotine dependence | CPT/HCPCS: 99212 ==

== ENCOUNTER 2025-07-03 13:42 | Outpatient (REF) | payer MEDICARE, SELFPAY ==
--- OUTSIDE RECORDS SUMMARY | 2025-07-03 15:02 | XMS_ITS | Patient Health Record ---
Author Organization [facility] Address [address] [place] [address] Care Team Providers Care Practice Support Specialist Name Role Phone Deric COLLAZO, Asma Primary Care Provider Maximilian Bullard [phone] Allergies Allergen (clinical drug ingredient) Drug/Non Drug Allergy documented on EMR Reaction Allergy Type Onset Date Status codeine Codeine Sulfate Unknown Drug Allergy A ctive Reason For Referral No Information Medications Medication SIG (Take, Route, Fr equency, Duration) Notes Start Date End Date Status Lisinopril Active MoviPrep 100 GM as directed Orally a s directed for 1 dose 12/09/2013 Active Spiriva HandiHaler A ctive Problems Problem Type SNOMED Code ICD Code Onset Dates Problem Status W/U Status Risk Notes Problem Pre-surgery evaluation (475317700) Other specified pre-operative examination (V72.83) Active confirmed Problem Colon cancer screening (V76.51) Active confirmed Problem History of adenomatous polyp of colon (972634686) History of adenomatous polyp of colon (V12.72) Active confirmed Plan Of Treatment Future Test Test Name Order Date COLONOSCOPY 12/09/2013 Insurance Providers Payer Name Payer Address Payer Phone Subscriber Number Group Number Insured Name Patient Relationship to Insured Coverage Start Date Coverage End Date [facility] [address] [place], [place] [id number] TERELL BECERRIL Self - patient is the insured Medical (General) History Medical History History ICD Code Colon polyps-tubular adenoma s removed in 04/2004--hyperplastic polyp removed in 01/2009 Asthma/COPD hypertension Denies [place],DM,renal disease
[2025-07-03 16:30] LABS: Appearance Urine Clear; Glucose Urine UA Negative (Negative); PH 6.5 (5.0-9.0); Specific Gravity - Urine 1.010 (1.005-1.025); UMIC TRIGGER UACC YES
[2025-07-03 16:35] LABS: UACC Culture Trigger YES
== END 2025-07-03 13:43 | disposition home or self-care (01) ==
LOC: HO.HMGCLDS 13:42
PROVIDERS: PCP Internal Medicine; Visit Provider Internal Medicine
DX: R35.0 Frequency of micturition (principal); R30.0 Dysuria
CPT/HCPCS: 81001; 87086

== ENCOUNTER 2025-07-04 14:49 | Outpatient (AMB) | payer MEDICARE, SELFPAY ==
--- NOTE | 2025-07-04 14:50 | A.OFFPC_ITS ---
Vital Signs 07/04/25 14:51 Height 5 ft 4 in Weight 136 lb BMI 23.3 BP 144/80 H Blood Pressure Location Lt brachial Position Sitting Pulse 99 Pulse Source Pulse Oximeter Pulse Oximetry (%) 93 Oxygen Delivery Method Room Air Intake Visit Reasons: 6 months Allergies codeine Allergy (Intermediate, Verified 07/04/25 14:51) redness/itching latex Allergy (Intermediate, Verified 07/04/25 14:51) Rash Medication List - Last Reconciled 07/04/25 by Drake Leos MD budesonide-formoterol 160-4.5 mcg/actuation 2 puffs inhalation BID 30 days clobetasol 0.05% 1 appl topical BID 2 weeks diltiazem HCl ER 180 mg PO DAILY ipratropium-albuterol 20-100 mcg/actuation (Combivent Respimat) 1 puff inhalation Q6H PRN losartan 50 mg PO DAILY 90 days Tobacco use date assessed: 01/13/25 Fall risk assessment: No Falls in past year Last assessed Fall Risk: 07/04/25 Dental Screening Dental Screen Date: 01/13/25 HPI 6 months HPI Details History of Present Illness The patient is a 74-year-old female presenting with chronic hypertension and psoriasis management. Hypertension: - The patient reports that her blood pre ssure appears elevated during clinical visits, particularly with a reading of 144 systolic noted at this visit. - Normally, she monitors her blood press ure at home, where readings are usually in the 120s to 130s range. - The patient denies associated symptoms such as headaches, blurry vision, chest pain, or shortness of breath, indicating an absence of symptoms typically associated with hypertensive urgency. Psoriasis: - The patient uses a topical medication, Betamethason 0.05% steroid cream, for flare-ups primarily on her feet, which effectively manages itching for several days. Urinary Infection: - Recent urinalysis indicated persistent abnormalities despite the absence of urological symptoms. - Awaiting culture report results, as th e previous culture was too young to evaluate. Medical History: - Hypertension, managed with diltiazem 1 80 mg and losartan 50 mg. - Chronic Psoriasis. - History of elevated cholesterol. Problem List - Hypertension - Psoriasis - Urinary Tract Infection (suspected) - COPD sever Patient Instructions - Monitor blood pressure regularly at [facility]. - Continue medications as prescribed and ensure they are filled on time. - Complete the lab work as soon as possi ble, fasting is not needed for the curr ent set of labs. - Follow up on the urinalysis culture to determine the need for further intervention. - Continue to apply the prescribed cream for psoriasis management. Review of Systems - General: No fever no chills - Neurological: No headaches no dizziness - Ear nose throat: No sore throat no hearing difficulty no ear pain - Cardiovascular: No syncope, no chest pain, no palpitations - Gastrointestinal: No nausea vomiting or diarrhea - Endocrine: No polyuria polydipsia no heat intolerance - Genitourinary: No dysuria , no blood in urine Physical Exam General: No acute distress HEENT: No acute findings Neck: Supple Respiratory system: Able to talk in full sentences, no audible wheeze Cardiovascular: S1-S2 regular in rate and rhythm Gastrointestinal: No pain Extremities: No new findings SUPERVISOR COMMUNICATIONS AND SIGNALS: Alert awake oriented x3 motor sensory intact Skin: Normal turgor, patient reports psoriasis on feet, using Betamethasone 0.05% for itching PFSH Medical History History of smoking at least 1 pack per day for at least 30 years Exercise hypoxemia Has been smoking tobacco for 1 year Anxiety Heart burn Arthritis Constipation COPD (chronic obstructive pulmonary disease) Hypertension, essential Surgical History H/O tooth extraction History of colonoscopy Family History Father Smoker Lung cancer Mother Alzheimer's disease History of breast cancer Thyroid disorder Family/Other No problems noted. Sister HTN (hypertension) Sister HTN (hypertension) Brother HTN (hypertension) History of heart attack Brother History of heart attack HTN (hypertension) Maternal Grandmother No problems noted. Maternal Grandfather No problems noted. Paternal Grandfather Unknown family medical history Paternal Grandmother Unknown family medical history Social History Housing: Condominium Are you a primary day care home provider to a significant other at home: No Do you presently have visiting nurse or other home services: No Alcohol intake: former Patient Tobacco Use Status: Former Tobacco user e-Cigarette/Vaping Use: Never Used service: No Current occupational status: retired Cognitive needs: No Hearing needs: No Vision needs: No Questionnaire Thrive Questionnaire Date Thrive assessed: 01/13/25 YANIQUE-7 AMB Questionnaire YANIQUE-7 Date YANIQUE - 7 assessed: 01/13/25 Source: Developed by Drs. Maximilian Tang, Radha Mendoza, Fernandez No and colleagues, with an educational rachel from [employer]. Physical exam (Primary Care) Vital Signs: Last Vital Signs Pulse 99 07/04/25 14:51 BP 144/80 H 07/04/25 14:51 Pulse Ox 93 07/04/25 14:51 Oxygen Delivery Method Room Air 07/04/25 14:51 BMI result Body Mass Index 23.3 Tobacco/Smoking Status: Tobacco use Status Tobacco use date assessed 01/13/25 07/04/25 14:52 Patient Tobacco Use Status Former Tobacco user 07/04/25 14:52 e-Cigarette/Vaping Use Never Used 07/04/25 14:52 Thrive Assessment: Date of Thrive Assessment Date Thrive assessed 01/13/25 07/04/25 14:52 Coding Level of Care Code Est Pt Level 4 (29155) Complex EM visit Add On G2211 Diagnoses Hypertension, essential I10 Vitamin D deficiency E55.9 Other hemorrhoids K64.8 Hemorrhoid type: other Chronic obstructive pulmonary disease, unspecified COPD type J44.9 COPD type: unspecified COPD Psoriasis L40.9 Chronic cystitis N30.20 Assessment & Plan Assessment & Plan (1) Hypertension, essential: Code(s): I10 - Essential (primary) hypertension Category: Medical (2) Vitamin D deficiency: Code(s): E55.9 - Vitamin D deficiency, unspecified Category: Medical (3) Hemorrhoids: Comment: Avoid straining, high-fiber diet, surgical referral if needed declines again Code(s): K64.9 - Unspecified hemorrhoids Category: Medical Qualifiers: Hemorrhoid type: other Qualified Code(s): K64.8 - Other hemorrhoids (4) COPD (chronic obstructive pulmonary disease): Comment: PATIENT HAS PAST HISTORY OF SMOKING 1 PACK A DAY FOR ALMOST 50+ YEARS. SHE DOES HAVE RATHER SEVERE DEGREE OF COPD. BUT LUCKILY SHE IS STAYING VERY STABLE. Code(s): J44.9 - Chronic obstructive pulmonary disease, unspecified Category: Medical Qualifiers: COPD type: unspecified COPD Qualified Code(s): J44.9 - Chronic obstructive pulmonary disease, unspecified (5) Psoriasis: Code(s): L40.9 - Psoriasis, unspecified Category: Medical (6) Chronic cystitis: Code(s): N30.20 - Other chronic cystitis without hematuria Category: Medical Plan History of Present Illness The patient is a 74-year-old female presenting with chronic hypertension and psoriasis management. Hypertension: - The patient reports that her blood pressure appears elevated during clinical visits, particularly with a reading of 144 systolic noted at this visit. - Normally, she monitors her blood pressure at home, where readings are usually in the 120s to 130s range. - The patient denies associated symptoms such as headaches, blurry vision, chest pain, or shortness of breath, indicating an absence of symptoms typically associated with hypertensive urgency. Psoriasis: - The patient uses a topical medication, Betamethason 0.05% steroid cream, for flare-ups primarily on her feet, which effectively manages itching for several days. Urinary Infection: - Recent urinalysis indicated persistent abnormalities despite the absence of urological symptoms. - Awaiting culture report results, as the previous culture was too young to evaluate. Medical History: - Hypertension, managed with diltiazem 180 mg and losartan 50 mg. - Chronic Psoriasis. - History of elevated cholesterol. Problem List - Hypertension - Psoriasis - Urinary Tract Infection (suspected) - COPD sever - Hemorrhoids stable Patient Instructions - Monitor blood pressure regularly at home. - Continue medications as prescribed and ensure they are filled on time. - Complete the lab work as soon as possible, fasting is not needed for the current set of labs. - Follow up on the urinalysis culture to determine the need for further intervention. - Continue to apply the prescribed cream for psoriasis management. f/u in January Orders: Orders Comprehensive Met. Panel Today I10 - Essential (primary) hypertension Complete Blood Count Auto Diff 6 Months E55.9 - Vitamin D deficiency, unspecified, I10 - Essential (primary) hypertension, J44.9 - Chronic obstructive pulmonary disease, unspecified, K64.9 - Unspecified hemorrhoids, L40.9 - Psoriasis, unspecified, N30.20 - Other chronic cystitis without hematuria Lipid Panel 6 Months E55.9 - Vitamin D deficiency, unspecified, I10 - Essential (primary) hypertension, J44.9 - Chronic obstructive pulmonary disease, unspecified, K64.9 - Unspecified hemorrhoids, L40.9 - Psoriasis, unspecified, N30.20 - Other chronic cystitis without hematuria Vitamin D 25-OH (D2 and D3) 6 Months E55.9 - Vitamin D deficiency, unspecified, I10 - Essential (primary) hypertension, J44.9 - Chronic obstructive pulmonary disease, unspecified, K64.9 - Unspecified hemorrhoids, L40.9 - Psoriasis, unspecified, N30.20 - Other chronic cystitis without hematuria Vitamin B12 6 Months E55.9 - Vitamin D deficiency, unspecified, I10 - Essential (primary) hypertension, J44.9 - Chronic obstructive pulmonary disease, unspecified, K64.9 - Unspecified hemorrhoids, L40.9 - Psoriasis, unspecified, N30.20 - Other chronic cystitis without hematuria Comprehensive [place]. Panel Fast 6 Months E55.9 - Vitamin D deficiency, unspecified, I10 - Essential (primary) hypertension, J44.9 - Chronic obstructive pulmonary disease, unspecified, K64.9 - Unspecified hemorrhoids, L40.9 - Psoriasis, unspecified, N30.20 - Other chronic cystitis without hematuria Medications: New betamethasone dipropionate 0.05% 1 appl topical DAILY PRN 45 grams 2RF skin irritation Refilled losartan 50 mg PO DAILY 90 tabs 0RF 90 days diltiazem HCl ER 180 mg PO DAILY 90 tabs 1RF
[2025-07-04 14:51] VITALS: BP 144/80; PULSE 99; O2SAT 93; BMI 23.3
--- OUTSIDE RECORDS SUMMARY | 2025-07-04 15:44 | XMS_ITS | Patient Health Record ---
Author Organization [facility] Address [address] [place] [address] Care Team Providers Care Cream Cheese Maker Name Role Phone Deric COLLAZO, Asma Primary Care Provider Maximilian Bullard [phone] Allergies Allergen (clinical drug ingredient) Drug/Non Drug [...] W/U Status Risk Notes Problem Pre-surgery evaluation (319987313) Other specified pre-operative examination (V72.83) Active confirmed Problem Colon cancer screening (V76.51) Active confirmed Problem History of adenomatous polyp of colon (010401382) History of adenomatous polyp of colon (V12.72) Active confirmed Plan Of Treatment Future Test Test Name Order Date COLONOSCOPY 12/09/2013 Insurance Providers Payer Name Payer Address Payer Phone Subscriber Number Group Number Insured Name Patient Relationship to Insured Coverage Start Date Coverage End Date [facility] [address] [place], [place] [id number] TERELL BECERRIL Self - patient is the insured Medical (General) History Medical History History ICD Code Colon polyps-tubular adenoma s removed in 04/2004--hyperplastic polyp removed in 01/2009 Asthma/COPD hypertension Denies PA,DM,renal disease
== END 2025-07-04 15:58 | disposition home or self-care (01) ==
LOC: HO.HMCC 14:49
PROVIDERS: PCP Internal Medicine; Visit Provider Internal Medicine
DX: I10 Essential (primary) hypertension (principal); E55.9 Vitamin D deficiency, unspecified; K64.8 Other hemorrhoids; J44.9 Chronic obstructive pulmonary disease, unspecified; L40.9 Psoriasis, unspecified; N30.20 Other chronic cystitis without hematuria

== ENCOUNTER 2025-07-04 14:49 | Outpatient (REF) | payer MEDICARE, SELFPAY ==
[2025-07-04 17:38] LABS: Alanine Aminotransferase 20 U/L (0-31); Albumin Level 4.4 g/dL (3.5-5.0); Alkaline Phosphatase 101 U/L (39-117); Anion Gap 13 (12-20); Aspartate Amino Transferase 27 U/L (5-31); Blood Urea Nitrogen 17 mg/dL (9-16); Calcium 9.7 mg/dL (8.4-10.2); Carbon Dioxide 28 mmol/L (22-29); Chloride 105 mmol/L (96-108); Estimated Glomerular Filt Rate > 60; Potassium 4.2 mmol/L (3.3-5.1); Sodium 142 mmol/L (135-145); Total Protein 7.7 g/dL (6.5-8.0)
== END 2025-07-04 14:50 | disposition home or self-care (01) ==
LOC: HO.HMGCLDS 14:49
PROVIDERS: PCP Internal Medicine; Visit Provider Internal Medicine
DX: I10 Essential (primary) hypertension (principal); E55.9 Vitamin D deficiency, unspecified; K64.8 Other hemorrhoids; J44.9 Chronic obstructive pulmonary disease, unspecified; L40.9 Psoriasis, unspecified; N30.20 Other chronic cystitis without hematuria; Z79.899 Other long term (current) drug therapy
CPT/HCPCS: 36415; 80053; 99212

== ENCOUNTER 2025-08-31 15:16 | Outpatient (AMB) | payer MEDICARE, SELFPAY ==
--- NOTE | 2025-08-31 15:32 | A.OFFVIS_ITS ---
Vital Signs 08/31/25 15:33 Height 5 ft 4 in Weight 132 lb 4.438 oz BMI 22.7 BP 140/70 H Blood Pressure Location Lt brachial Position Sitting Pulse 94 Pulse Source Pulse Oximeter Pulse Oximetry (%) 92 Oxygen Delivery Method Room Air Intake Visit Reasons: COPD Intake Note: pt is here for follow up and states she is feeling good, only weather is affecting her breathing Industrial Renderer Required: No Coal Grader: Coal Grader offered & declined Allergies codeine Allergy (Intermediate, Verified 08/31/25 15:53) redness/itching latex Allergy (Intermediate, Verified 08/31/25 15:53) Rash Medication List - Last Reconciled 08/31/25 by Juhi Watson MD betamethasone dipropionate 0.05% 1 appl topical DAILY PRN budesonide-formoterol 160-4.5 mcg/actuation 2 puffs inhalation BID 30 days clobetasol 0.05% 1 appl topical BID 2 weeks diltiazem HCl ER 180 mg PO DAILY ipratropium-albuterol 20-100 mcg/actuation (Combivent Respimat) 1 puff inhalation Q6H PRN losartan 50 mg PO DAILY 90 days Do you need a note to return to daycare/school/sports/work: No HPI HPI COPD: Details: Mj, 74 years old very pleasant female is here after 6 months for follow-up. She has chronic bronchial asthma which flares up due to change in the weather or if she ever gets some respiratory infection. Since her last visit it has been under control, and she has continue to use Symbicort 2 puffs b.i.d.. She does have Combivent Respimat on hand , and she usually uses 1 inhalation before she goes in the shower a few times during the week. [facility] Medical History History of smoking at least 1 pack per day for at least 30 years Exercise hypoxemia Has been smoking tobacco for 1 year Anxiety Heart burn Arthritis Constipation COPD (chronic obstructive pulmonary disease) Hypertension, essential Surgical History H/O tooth extraction History of colonoscopy Family History Father Smoker Lung cancer Mother Alzheimer's disease History of breast cancer Thyroid disorder Family/Other No problems noted. Sister HTN (hypertension) Sister HTN (hypertension) Brother HTN (hypertension) History of heart attack Brother History of heart attack HTN (hypertension) Maternal Grandmother No problems noted. Maternal Grandfather No problems noted. Paternal Grandfather Unknown family medical history Paternal Grandmother Unknown family medical history Social History Housing: [facility] Are you a primary animal daycare provider to a significant other at home: No Do you presently have visiting nurse or other home services: No Alcohol intake: former Patient Tobacco Use Status: Former Tobacco user e-Cigarette/Vaping Use: Never Used service: No Current occupational status: retired Cognitive needs: No Hearing needs: No Vision needs: No Review of Systems Const All systems reviewed & are unremarkable except as noted in HPI and below Eyes Reports no additional complaints ENT Reports no additional complaints Card Denies chest pain, Denies irregular heart rhythm and Denies leg edema Resp Reports as per HPI GI Reports constipation Reports no additional complaints Musc Reports myalgias (Mild arthritis pain) Skin/Breast Reports other (psoriasis on the feet) Neuro Reports no additional complaints Psych Reports no additional complaints Endo Reports no additional complaints Physical Exam Vital Signs: Last Vital Signs Pulse 94 08/31/25 15:33 BP 140/70 H 08/31/25 15:33 Pulse Ox 92 08/31/25 15:33 Oxygen Delivery Method Room Air 08/31/25 15:33 BMI result Body Mass Index 22.7 Const General: healthy appearing, comfortable, no acute distress, alert and awake Orientation/consciousness: patient oriented x3 HEENT Head: Yes normal to inspection General nose exam: No nasal polyps present and No nasal discharge present Face and sinus: Yes sinuses nontender Mouth: oropharynx normal Throat: Yes posterior oropharynx normal Eyes General: appearance normal, both eyes and all related structures Neck Neck: Yes normal visual inspection, Yes no lymphadenopathy, Yes trachea midline and Yes no JVD Thyroid: Thyroid normal Chest Chest palpation & inspection: normal inspection of the chest, normal palpation of entire chest wall and no tenderness Resp Other: Percussion note is resonant, breath sounds equal on both sides moderately distant with prolonged expiratory phase. No wheezes rhonchi or crepitations are heard. Cardio Palpation: normal PMI Rate: regular rate Rhythm: regular rhythm Heart sounds: no gallops and no murmurs Peripheral pulses: Peripheral pulses 2+ throughout GI Palpation (GI): Soft to palpation, nontender, No hepatosplenomegaly present and no masses Auscultation: normal bowel sounds Back/Spine/Pelvis Thoracic/Lumbar Spine: thoracic and lumbar spine normal to inspection Skin General skin exam: no rashes or lesions noted Neuro General: patient oriented x3 and no focal motor deficits Cranial nerves: Yes CN's II-XII intact bilaterally Extrem General: Yes normal to inspection, Yes no clubbing, cyanosis or edema and Yes no calf tenderness Psych Appearance: grossly normal and well kempt Speech and movement: Normal speech and movement present Assessment & Plan Assessment & Plan (1) COPD (chronic obstructive pulmonary disease): Comment: PATIENT HAS PAST HISTORY OF SMOKING 1 PACK A DAY FOR ALMOST 50+ YEARS. SHE DOES HAVE RATHER SEVERE DEGREE OF COPD. BUT LUCKILY SHE IS STAYING VERY STABLE. SHE HAS HAD NO ACUTE EXACERBATION IN THE LAST 6 MONTHS. Code(s): J44.9 - Chronic obstructive pulmonary disease, unspecified Category: Medical Qualifiers: COPD type: unspecified COPD Qualified Code(s): J44.9 - Chronic obstructive pulmonary disease, unspecified Plan: CONTINUE TO USE SYMBICORT 160-4.52 PUFFS B.I.D. USE COMBIVENT RESPIMAT 1 INHALATION Q 6 HOURS ONLY P.R.N. (2) Has been smoking tobacco for 1 year: Comment: HISTORY OF SMOKING 1 PACK A DAY FOR 50+ YEARS. LUCKILY SHE QUIT IN 2019. And She has no urge to go back to smoking Code(s): F17.200 - Nicotine dependence, unspecified, uncomplicated Category: Social Hx Plan: COMMENDED FOR NOT GOING BACK TO SMOKING. (3) Exercise hypoxemia: Comment: PATIENT HAS EXERCISE INDUCED HYPOXEMIA. DISCUSSED WITH THE PATIENT AND HER . PATIENT MAINTAINS NORMAL O2 SAT AT REST. LATELY EVEN AFTER WALKING SHORT. HER O2 SAT IS STILL ABOVE 90%. Code(s): R09.02 - Hypoxemia Category: Medical Plan: DOES NOT NEED O2 HOWEVER SHE IS ADVISED THAT SHE SHOULD KEEP ON CHECKING HER O2 SAT FREQUENTLY ESPECIALLY AFTER EXERTION. Coding Level of Care Code Est Pt Level 3 (11021) Diagnoses Chronic obstructive pulmonary disease, unspecified COPD type J44.9 COPD type: unspecified COPD Has been smoking tobacco for 1 year F17.200 Exercise hypoxemia R09.02
[2025-08-31 15:33] VITALS: BP 140/70; PULSE 94; O2SAT 92; BMI 22.7
--- OUTSIDE RECORDS SUMMARY | 2025-08-31 19:04 | XMS_ITS | Patient Health Record ---
Author Organization [facility] Address [address] [place] [address] Care Team Providers Care Drug Abuse Treatment Specialist Name Role Phone Deric COLLAZO, Asma Primary Care Provider Maximilian Bullard [phone] Allergies Allergen (clinical drug ingredient) Drug/Non Drug Allergy documented on EMR Reaction Allergy Type Onset Date Status codeine Codeine Sulfate Unknown Drug Allergy A ctive Reason For Referral No Information Medications Medication SIG (Take, Route, Fr equency, Duration) Notes Start Date End Date Status Lisinopril Active MoviPrep 100 GM as directed Orally a s directed; Duration: 1 dose 12/09/2013 Active Spiriva HandiHaler A ctive Problems Problem Type SNOMED Code ICD Code Onset Dates Problem Status W/U Status Risk Notes Problem Pre-surgery evaluation (189804843) Other specified pre-operative examination (V72.83) Active confirmed Problem Colon cancer screening (721996376) Colon cancer screening (V76.51) Active confirmed Problem History of adenomatous polyp of colon (277028432) History of adenomatous polyp of colon (V12.72) Active confirmed Plan Of Treatment Future Test Test Name Order Date COLONOSCOPY 12/09/2013 Insurance Providers Payer Name Payer Address Payer Phone Subscriber Number Group Number Insured Name Patient Relationship to Insured Coverage Start Date Coverage End Date [facility] [address] [place], [place] [id number] [phone] [id number] TERELL BECERRIL Self - patient is the insured Medical (General) History Medical History History ICD Code Colon polyps-tubular adenoma s removed in 04/2004--hyperplastic polyp removed in 01/2009 Asthma/COPD hypertension Denies ND,DM,renal disease
== END 2025-08-31 15:53 | disposition home or self-care (01) ==
LOC: HO.HPS 15:16
PROVIDERS: PCP Internal Medicine; Visit Provider Internal Medicine
DX: J44.9 Chronic obstructive pulmonary disease, unspecified (principal); F17.200 Nicotine dependence, unspecified, uncomplicated; R09.02 Hypoxemia
CPT/HCPCS: 99213

== ENCOUNTER → 2025-08-31 15:16 | Outpatient (BNVA) | payer MEDICARE, SELFPAY | PROVIDERS: PCP Internal Medicine; Visit Provider Internal Medicine | DX: J44.89 Other specified chronic obstructive pulmonary disease (principal); F17.200 Nicotine dependence, unspecified, uncomplicated; R09.02 Hypoxemia | CPT/HCPCS: 99212 ==